=== PATIENT | female | born 1940 | race Caucasian/White ===

== ENCOUNTER → 2017-11-14 | Outpatient (CLI) | payer MEDICARE ==
[~2017-11-14] MED LIST: ACIDOPHILUS PO; ALBU8HFA2 INH; ALBU90OI61 INH; AMIT25 PO; AMOCLA875 PO; Acidophilus La100 GM PO; BUTASPCAF PO; CARI350 PO; CEFAZOLIN IV; CEFAZOLIN SODIU IV; CEFD300 PO; CEPH500 PO; CHOL10002 PO; CIPR500 PO; CODBUTACEC PO; CYAN100 PO; CYAN1000 PO; Ceftriaxon2 GM/50 ML IV; Ceftriaxone2 G1 IV; DIPATR PO; DOXE25 PO; DOXY100 PO; ENOX40I SC; FERR160 PO; FLUT.05NI; GABA300 PO; GENT.1TC TP; GENT15TO TOP; HYDACE10B PO; LANS30EC PO; LISHYD2012 PO; LONOX; LOPE2C PO; MAGOXI400 PO; MELA3 PO; METO100ER PO; METO50ER PO; Magnesium500 M1 PO; NIFE60ER PO; NITR100CA PO; OMEP20ER PO; ONDA4ODT MM; OXYC5 PO; POLY17UD PO; PROM25 PO; Rocephin 10001000 MG IV; SERT100 PO; SERT25 PO; SPIRIVA INH; TIOT18 IH; TRAZ150T57 PO; TRAZ50 PO; VERA180ER PO; VERA240ERB PO; VERAPAMIL PO; ZOLP5 PO; [UNRECOGNIZED DRUG - MIXTURE] PO; [UNRECOGNIZED DRUG - REMARK]
[2017-11-14 14:08] LABS: Creatinine, Blood 3.12 mg/dL (0.40-1.00); Potassium, Blood 4.3 mmol/L (3.5-5.5)
== END | disposition home or self-care (01) ==
LOC: LAB SHORT 10:00
PROVIDERS: Internal Medicine Nephrology
DX: N18.4 Chronic kidney disease, stage 4 (severe) (principal); D63.1 Anemia in chronic kidney disease; E83.41 Hypermagnesemia; E86.9 Volume depletion, unspecified
CPT/HCPCS: 82374; 82565; 84132; 84295; 85018

== ENCOUNTER → 2018-01-17 | Outpatient (CLI) | payer MEDICARE ==
[2018-01-17 16:14] LABS: Albumin, Blood 3.1 g/dL (3.4-5.0); Anion Gap 9 mmol/L (6-16); Blood Urea Nitrogen 55 mg/dL (8-24); Bun/Creatinine Ratio 19.3 (12.0-20.0); CO2, Blood 22 mmol/L (21-32); Calcium, Blood 8.6 mg/dL (8.5-10.1); Chloride, Blood 109 mmol/L (98-108); Creatinine, Blood 2.85 mg/dL (0.40-1.00); Glomerular Filtration Rate 17 (60-); Glucose, Blood 116 mg/dL (70-99); Phosphorus, Blood 3.3 mg/dL (2.5-4.9); Potassium, Blood 4.6 mmol/L (3.5-5.5); Sodium, Blood 140 mmol/L (136-145)
== END | disposition home or self-care (01) ==
LOC: LAB HH 15:32
PROVIDERS: Family Medicine
DX: N18.4 Chronic kidney disease, stage 4 (severe) (principal); D53.1 Other megaloblastic anemias, not elsewhere classified
CPT/HCPCS: 80069; 85018

== ENCOUNTER → 2018-02-20 | Outpatient (CLI) | payer MEDICARE ==
[2018-02-20 18:50] LABS: Albumin, Blood 3.4 g/dL (3.4-5.0); Anion Gap 6 mmol/L (6-16); Blood Urea Nitrogen 33 mg/dL (8-24); Bun/Creatinine Ratio 13.9 (12.0-20.0); CO2, Blood 24 mmol/L (21-32); Calcium, Blood 7.5 mg/dL (8.5-10.1); Chloride, Blood 113 mmol/L (98-108); Creatinine, Blood 2.38 mg/dL (0.40-1.00); Glomerular Filtration Rate 21 (60-); Glucose, Blood 164 mg/dL (70-99); Phosphorus, Blood 3.4 mg/dL (2.5-4.9); Potassium, Blood 3.8 mmol/L (3.5-5.5); Sodium, Blood 143 mmol/L (136-145)
[2018-02-20 19:21] LABS: Magnesium, Blood 1.1 mg/dL (1.6-2.4)
== END ==
LOC: LAB 11:30 → LAB SHORT 11:30
PROVIDERS: Internal Medicine Nephrology
DX: N18.4 Chronic kidney disease, stage 4 (severe) (principal); D63.1 Anemia in chronic kidney disease
CPT/HCPCS: 80069; 83735

== ENCOUNTER → 2018-06-19 | Outpatient (CLI) | payer MEDICARE ==
[2018-06-19 14:33] LABS: Albumin, Blood 2.5 g/dL (3.4-5.0); Anion Gap 7 mmol/L (6-16); Blood Urea Nitrogen 35 mg/dL (8-24); Bun/Creatinine Ratio 19.8 (12.0-20.0); CO2, Blood 21 mmol/L (21-32); Calcium, Blood 6.2 mg/dL (8.5-10.1); Chloride, Blood 118 mmol/L (98-108); Creatinine, Blood 1.77 mg/dL (0.40-1.00); Glomerular Filtration Rate 30 (60-); Glucose, Blood 55 mg/dL (70-99); Magnesium, Blood 1.2 mg/dL (1.6-2.4); Phosphorus, Blood 2.5 mg/dL (2.5-4.9); Potassium, Blood 3.6 mmol/L (3.5-5.5); Sodium, Blood 146 mmol/L (136-145)
== END | disposition home or self-care (01) ==
LOC: LAB 10:45 → LAB SHORT 10:45
PROVIDERS: Internal Medicine Nephrology
DX: N18.4 Chronic kidney disease, stage 4 (severe) (principal); D63.1 Anemia in chronic kidney disease; E83.41 Hypermagnesemia; R73.09 Other abnormal glucose
CPT/HCPCS: 80069; 83036; 83735; 85018

== ENCOUNTER → 2018-07-31 | Outpatient (CLI) | payer MEDICARE ==
[2018-07-31 18:51] LABS: Magnesium, Blood 1.9 mg/dL (1.6-2.4)
[2018-07-31 18:54] LABS: Creatinine, Blood 2.8 mg/dL (0.40-1.00); Potassium, Blood 4.2 mmol/L (3.5-5.5)
== END | disposition home or self-care (01) ==
LOC: LAB HH 13:49
PROVIDERS: Internal Medicine Nephrology
DX: N18.3 Chronic kidney disease, stage 3 (moderate) (principal); N25.81 Secondary hyperparathyroidism of renal origin; E55.9 Vitamin D deficiency, unspecified; E78.00 Pure hypercholesterolemia, unspecified
CPT/HCPCS: 82374; 82565; 83735; 84132; 84295

== ENCOUNTER 2018-11-13 10:27 | Inpatient (IN) | payer MEDICARE, OTHER ==
[~2018-11-13] VITALS: Ht 172.7 cm; Wt 56.3 kg
[2018-11-13] MEDS ORDERED: CYAN500 PO (10:58)
[2018-11-13] MEDS ORDERED: ALBU90OI61 INH (10:59)
[2018-11-13] MEDS ORDERED: ONDA4 PO (11:00)
[2018-11-13 11:42] LABS: BASOPHILS ABSOLUTE AUTO 0.05 K/mm3 (0.00-0.23); BASOPHILS PERCENT AUTO 0 % (0-2); EOSINOPHILS ABSOLUTE AUTO 0.01 K/mm3 (0.00-0.68); EOSINOPHILS PERCENT AUTO 0 % (0-6); Hematocrit 38.9 % (33.0-51.0); Hemoglobin 12.8 g/dL (11.5-16.0); IMMATURE GRAN ABSOLUTE AUTO 0.22 K/mm3 (0.00-0.10); IMMATURE GRAN PERCENT AUTO 1 % (0-1); LYMPHOCYTES PERCENT AUTO 5 % (21-46); MONOCYTES ABSOLUTE AUTO 0.41 K/mm3 (0.16-1.47); MONOCYTES PERCENT AUTO 2 % (4-13); Mean Corpuscular HGB Conc 32.9 g/dL (31.5-36.5); Mean Corpuscular Volume 88 fL (80-100); Mean Platelet Volume 10.1 fL (9.1-12.4); NEUTROPHILS ABSOLUTE AUTO 19.88 K/mm3 (1.96-9.15); NEUTROPHILS PERCENT AUTO 92 % (41-73); Platelet Count 351 K/mm3 (150-400); RDW Standard Deviation 44.9 fL (35.1-46.3); Red Blood Cell Count 4.42 M/mm3 (3.80-5.20); White Blood Cell Count 21.67 K/mm3 (4.00-11.30)
[2018-11-13 12:11] LABS: Albumin, Blood 4.1 g/dL (3.4-5.0); Albumin/Globulin Ratio 0.9 (0.8-1.8); Bilirubin, Total 0.6 mg/dL (0.1-1.0); Calcium, Blood 8.9 mg/dL (8.5-10.1); Creatinine, Blood 4.83 mg/dL (0.40-1.00); Globulin, Blood 4.8 g/dL (2.2-4.0); Total Protein, Blood 8.9 g/dL (6.4-8.2)
[2018-11-13 12:14] LABS: Potassium, Blood 6.9 mmol/L (3.5-5.5)
--- NOTE | 2018-11-13 18:35 | NUR ---
SHIFT SUMMARY PT ARRIVED A BIT BEFORE 4PM. DENIED PAIN, PLEASANT, SBA TO BED. AT 1815, CAME IN TO SEE PT WITH HER HAVING STRONG WHOLE BODY CHILLS, BUT ABLE TO TALK THROUGH THEM. SHE SAID SHE WAS JUST REALLY COLD AND HAD A HEADACHE. SHE HAD BEEN IN THE MIDDLE OF EATING. O2 SATS SHOWED 79 INITIALLY, BUT BUMPED UP QUICKLY AFTER OXYGEN PLACED AT 5L. , BUT TEMP BETWEEN 99-101 DEPENDING ON MACHINE USED. OXYGEN LEVEL RECOVERED AND WEANED OFF OXYGEN WITHIN A FEW MINUTES, AND CHILLS MUCH BETTER. TALKING TO PT, SHE HAS HAD CHRONIC SWALLOWING ISSUES, WILL FOLLOW ASP PRECAUTIONS AND ASK FOR SWALLOW EVAL. TM
[2018-11-13 19:21] LABS: Bun/Creatinine Ratio 17.4 (12.0-20.0); Creatinine, Blood 4.08 mg/dL (0.40-1.00)
[2018-11-13 20:13] LABS: Source, Urine Catheter
[2018-11-13 20:18] LABS: Appearance, Urine Turbid (Clear); Bilirubin, Urine Neg (Neg); Blood, Urine 3+ (Neg); Color, Urine Yellow (P-Yellow); Glucose Qualitative, Urine Neg (Neg); Ketones, Urine Neg (Neg); Leukocyte Esterase, Urine 3+ (Neg); Nitrite, Urine Neg (Neg); Protein, Urine 2+ (Neg); Urobilinogen, Urine NORM (Normal)
[2018-11-13 20:27] LABS: White Blood Cells, Urine TNTC /hpf (0-5)
[2018-11-13 20:29] LABS: Bacteria Many /hpf; Squamous Epithelial Cells Rare /hpf (Few)
--- NOTE | 2018-11-14 04:28 | NUR ---
SHIFT SUMMARY PT REPORTS FEELING MUCH BETTER THIS EVENING. HAD AN EPISODE JUST BEFORE SHIFT CHANGE WHERE PT WAS CHILLED AND HAD A HEADACHE. PT HAD BEEN RUNNING A TEMPERATURE APPROX 101 DEGREES F. AS[place]LY [place] MASON UP TO SEE PT. ADDITIONAL LABS ORDERED INCLUDING BLOOD CULTURES OBTAINED BOTH FROM [facility] AND NOT. ULTRAM X 1 GIVEN FOR THE HEADACHE WHICH WAS VERY EFFECTIVE. TYLENOL ALSO GIVEN FOR FEVER. APPROX 1 HOUR AFTER TYLENOL WAS GIVEN PT'S TEMP CAME DOWN TO 98.9 DEGREES. PT'S POTASSIUM IMPROVED TO 5.0 FROM CRITICALLY HIGH IN THE ED. HOWEVER, MAGNESIUM CRITICALLY LOW WITH EVENING DRAW AT 1.0. 2 GRAMS IV MAGNESIUM GIVEN. LACTIC ACID ALSO ELEVATED AT 2.4 AND 2.5. ASHELY [place] AWARE. PT HAS COLOSTOMY AND UROSTOMY. APPLIANCES CHANGED TO BOTH THIS EVENING. PT SELF MANGAGES. CHANGED APPLIANCES TO OBTAIN CULTURE SWABS TO CLEAR FOR VRE. SWABS ALSO TAKEN FROM SMALL WOUND ON COCCYX AND URETHRA. UNABLE TO OBTAIN RECTAL SWAB. PT REPORTS THAT RECTUM IS "SEWN UP". PT STEADY ON FEET. AMBULATES WELL. DENIES NAUSEA THIS EVENING. APPEARS TO BE SLEEPING AT THIS TIME, HOWEVER DID NOT SLEEP VERY MUCH THIS EVENING. VSS. WILL CONTINUE TO MONITOR.
[2018-11-14 05:02] LABS: Hematocrit 26.6 % (33.0-51.0); Hemoglobin 8.7 g/dL (11.5-16.0); Mean Corpuscular HGB 29.5 pg (26.0-34.0); Mean Corpuscular HGB Conc 32.7 g/dL (31.5-36.5); Mean Corpuscular Volume 90 fL (80-100); Platelet Count 183 K/mm3 (150-400); RDW Coefficient Variation 14.1 % (11.7-14.2); RDW Standard Deviation 45.4 fL (35.1-46.3); Red Blood Cell Count 2.95 M/mm3 (3.80-5.20); White Blood Cell Count 13.99 K/mm3 (4.00-11.30)
[2018-11-14 06:14] LABS: Albumin, Blood 2.7 g/dL (3.4-5.0); Albumin/Globulin Ratio 0.8 (0.8-1.8); Bilirubin, Total 0.6 mg/dL (0.1-1.0); Bun/Creatinine Ratio 17.6 (12.0-20.0); Calcium, Blood 7.6 mg/dL (8.5-10.1); Creatinine, Blood 3.76 mg/dL (0.40-1.00); Globulin, Blood 3.4 g/dL (2.2-4.0); Potassium, Blood 5.3 mmol/L (3.5-5.5)
[2018-11-14 06:32] LABS: Total Protein, Blood 6.1 g/dL (6.4-8.2)
--- NOTE | 2018-11-14 07:37 | NUR ---
REPORT FROM ADONAY CARNEY RN, LAB CALLED TO REPORT A POSITIVE BLOOD CULTURE. RN NOTIFIED DR. MADISON.
--- NOTE | 2018-11-14 11:42 | NUR ---
RECIEVED A CALL FROM CHRISTOPHE IN LAB, SECOND SET OF BLOOD CULTURES POSITIVE. ISTRATE NOTIFIED.
--- NOTE | 2018-11-14 18:44 | NUR ---
SHIFT SUMMARY PATIENT A&O X4, INDEPENDENT IN THE ROOM. DENIES ANY PAIN, SOB, OR NAUSEA. TWO POSITIVE BLOOD CULTURES THIS SHIFT. IV ABX PER E JAN. CPN @ 75 STARTED THIS EVENING. CAP TO PORT CHANGED. NO ACUTE CHANGES, CALL LIGHT WITHIN REACH.
[2018-11-15 05:20] LABS: BASOPHILS ABSOLUTE AUTO 0.04 K/mm3 (0.00-0.23); BASOPHILS PERCENT AUTO 0 % (0-2); EOSINOPHILS ABSOLUTE AUTO 0.05 K/mm3 (0.00-0.68); EOSINOPHILS PERCENT AUTO 1 % (0-6); Hemoglobin 9.1 g/dL (11.5-16.0); IMMATURE GRAN ABSOLUTE AUTO 0.06 K/mm3 (0.00-0.10); IMMATURE GRAN PERCENT AUTO 1 % (0-1); LYMPHOCYTES ABSOLUTE AUTO 0.81 K/mm3 (0.84-5.20); LYMPHOCYTES PERCENT AUTO 9 % (21-46); MONOCYTES ABSOLUTE AUTO 0.37 K/mm3 (0.16-1.47); MONOCYTES PERCENT AUTO 4 % (4-13); Mean Corpuscular HGB 28.8 pg (26.0-34.0); Mean Corpuscular HGB Conc 32.5 g/dL (31.5-36.5); Mean Corpuscular Volume 89 fL (80-100); Mean Platelet Volume 10.2 fL (9.1-12.4); NEUTROPHILS ABSOLUTE AUTO 7.84 K/mm3 (1.96-9.15); NEUTROPHILS PERCENT AUTO 86 % (41-73); Platelet Count 205 K/mm3 (150-400); RDW Coefficient Variation 13.8 % (11.7-14.2); RDW Standard Deviation 44.5 fL (35.1-46.3); Red Blood Cell Count 3.16 M/mm3 (3.80-5.20); White Blood Cell Count 9.17 K/mm3 (4.00-11.30)
[2018-11-15 05:43] LABS: Alanine Aminotransfer (ALT/SGP 27 U/L (12-78); Albumin, Blood 2.9 g/dL (3.4-5.0); Albumin/Globulin Ratio 0.8 (0.8-1.8); Alk Phos 117 U/L (50-136); Anion Gap 8 mmol/L (6-16); Aspartate Aminotrans (AST/SGOT 14 U/L (12-37); Bilirubin, Total 0.3 mg/dL (0.1-1.0); Blood Urea Nitrogen 60 mg/dL (8-24); Bun/Creatinine Ratio 21.9 (12.0-20.0); CO2, Blood 23 mmol/L (21-32); Calcium, Blood 8.3 mg/dL (8.5-10.1); Chloride, Blood 106 mmol/L (98-108); Creatinine, Blood 2.74 mg/dL (0.40-1.00); Globulin, Blood 3.5 g/dL (2.2-4.0); Glomerular Filtration Rate 18 (60-); Glucose, Blood 97 mg/dL (70-99); Magnesium, Blood 2.2 mg/dL (1.6-2.4); Phosphorus, Blood 4.3 mg/dL (2.5-4.9); Potassium, Blood 5.4 mmol/L (3.5-5.5); Sodium, Blood 137 mmol/L (136-145); Total Protein, Blood 6.4 g/dL (6.4-8.2); Triglycerides 100 mg/dL (30-160)
--- NOTE | 2018-11-15 06:20 | NUR ---
SHIFT SUMMARY PT HAS SLEPT FOR MOST OF SHIFT. PT HAD NO ISSUES NOTED. PT IS BREATHING EASY AND RESTING COMFORTABLY.
[2018-11-15 13:21] LABS: BASOPHILS ABSOLUTE AUTO 0.01 K/mm3 (0.00-0.23); BASOPHILS PERCENT AUTO 0 % (0-2); EOSINOPHILS ABSOLUTE AUTO 0.02 K/mm3 (0.00-0.68); EOSINOPHILS PERCENT AUTO 1 % (0-6); Hematocrit 30.1 % (33.0-51.0); Hemoglobin 9.9 g/dL (11.5-16.0); IMMATURE GRAN ABSOLUTE AUTO 0.03 K/mm3 (0.00-0.10); IMMATURE GRAN PERCENT AUTO 1 % (0-1); LYMPHOCYTES ABSOLUTE AUTO 0.21 K/mm3 (0.84-5.20); LYMPHOCYTES PERCENT AUTO 5 % (21-46); MONOCYTES ABSOLUTE AUTO 0.05 K/mm3 (0.16-1.47); MONOCYTES PERCENT AUTO 1 % (4-13); Mean Corpuscular HGB Conc 32.9 g/dL (31.5-36.5); Mean Corpuscular Volume 88 fL (80-100); Mean Platelet Volume 10.3 fL (9.1-12.4); NEUTROPHILS ABSOLUTE AUTO 3.89 K/mm3 (1.96-9.15); NEUTROPHILS PERCENT AUTO 92 % (41-73); Platelet Count 197 K/mm3 (150-400); RDW Coefficient Variation 14.1 % (11.7-14.2); RDW Standard Deviation 44.8 fL (35.1-46.3); Red Blood Cell Count 3.41 M/mm3 (3.80-5.20); White Blood Cell Count 4.21 K/mm3 (4.00-11.30)
--- NOTE | 2018-11-15 18:03 | NUR ---
PT AOX4 AND PLEASANT WITH ALL CARE. PT HAS BEEN ON BED REST AND TAKES CARE OF HER OSTOMY BAG PERSONALLY. PT HAD HER TEMP SPIKE UP TO 101.3 LATE MORNING AND WAS TREATED WITH TYLENOL AND ZOFRAN FOR NAUSEA. PT HAD THE CHILLS AND WAS VERY DISTRESSED, BUT THIS RESOLVED HER TEMP CAME DOWN A BIT. PT WAS AGAIN STARTING TO GET NAUSEA AND WAS AGAIN TREATED FOR TEMP OF 100.3 PRIOR TO END OF SHIFT. PT IS TRYING TO EAT DINNER. TPN CHANGED WELL TUBING. WILL MONITOR.
--- NOTE | 2018-11-15 22:22 | NUR ---
VEW SCORE 7 HOSPITALIST CALLED AND INFORMED OF PT'S VEW SCORE. PROVIDER ORDERED INCREASE OF NS RATE TO 125 ML/HR AND TYLENOL 650MG OT FOR NOW. PT VS WILL BE ASSESSED HOURLY. PT HAS RECIEVED ORDERED VANCO AND IS NOW RECIEVING ROCEPHIN.
--- NOTE | 2018-11-16 02:10 | NUR ---
DR. WATSON PT HYPOTENSIVE (SEE VS FS). KYLE, PRIMARY RN REQUESTED TO CONTACT DR. WATSON REGARDING HYPOTENSION. DR. WATSON ORDERED 1L LR BOLUS. DR. WATSON LATER D/C LR BOLUS PRIOR TO ADMINISTRATION AND ORDERED 1L NS BOLUS.
--- NOTE | 2018-11-16 02:13 | NUR ---
PT TRANSFERED TO ICU 8. PT DAUGHTER CHRISTOPHE WAS CALLED AND NOTIFIED, SHE STATED SHE WILL BE IN LATER IN THE MORNING.
[2018-11-16 03:27] LABS: BASOPHILS ABSOLUTE AUTO 0.03 K/mm3 (0.00-0.23); BASOPHILS PERCENT AUTO 0 % (0-2); EOSINOPHILS PERCENT AUTO 0 % (0-6); Hematocrit 22.3 % (33.0-51.0); Hemoglobin 7.4 g/dL (11.5-16.0); IMMATURE GRAN ABSOLUTE AUTO 0.52 K/mm3 (0.00-0.10); IMMATURE GRAN PERCENT AUTO 2 % (0-1); LYMPHOCYTES ABSOLUTE AUTO 0.37 K/mm3 (0.84-5.20); LYMPHOCYTES PERCENT AUTO 2 % (21-46); MONOCYTES ABSOLUTE AUTO 0.71 K/mm3 (0.16-1.47); MONOCYTES PERCENT AUTO 3 % (4-13); Mean Corpuscular HGB 30.1 pg (26.0-34.0); Mean Corpuscular HGB Conc 33.2 g/dL (31.5-36.5); Mean Platelet Volume 10.7 fL (9.1-12.4); NEUTROPHILS PERCENT AUTO 93 % (41-73); Platelet Count 106 K/mm3 (150-400); RDW Standard Deviation 45.4 fL (35.1-46.3); Red Blood Cell Count 2.46 M/mm3 (3.80-5.20); White Blood Cell Count 24.43 K/mm3 (4.00-11.30)
[2018-11-16 03:29] LABS: Mean Corpuscular Volume 91 fL (80-100)
[2018-11-16 03:46] LABS: Albumin, Blood 2.1 g/dL (3.4-5.0); Anion Gap 9 mmol/L (6-16); Blood Urea Nitrogen 60 mg/dL (8-24); Bun/Creatinine Ratio 20.7 (12.0-20.0); CO2, Blood 19 mmol/L (21-32); Calcium, Blood 6.8 mg/dL (8.5-10.1); Chloride, Blood 109 mmol/L (98-108); Glomerular Filtration Rate 17 (60-); Glucose, Blood 106 mg/dL (70-99); Magnesium, Blood 1.3 mg/dL (1.6-2.4); Phosphorus, Blood 2.6 mg/dL (2.5-4.9); Potassium, Blood 5.6 mmol/L (3.5-5.5); Sodium, Blood 137 mmol/L (136-145)
--- NOTE | 2018-11-16 04:34 | NUR ---
ASSUMING CARE RECEIVED PT REPORT FROM LEONARDO ALMEIDA ON MEDICAL FLOOR. PT IS BEING TRANSFERED TO ICU DUE TO HYPOTENSION. PT ARRIVED TO THE ICU AT APPROX 0158. PT ESCORTED BY 2 RN'S AND MITER GRINDER OPERATOR FROM MEDICAL FLOOR. AT THE TIME OF ARRIVAL TO THE ICU PT IS ALERT AND ORIENTED. PT IS ABLE TO ANSWER QUESTIONS APPROPRIATELY. PT BP IS IN THE 60-70'S SYSTOLIC. PT RECEIVED X2 500ML BOLUSES ON MEDICAL FLOOR PRIOR TO TRANSFER TO THE UNIT. ORDER RECEIVED FROM DR WATSON TO TRANSFUSE X1 1000ML BOLUS NS. BOLUS TRANSFUSED ORDERED. PT BP DID NOT APPEAR TO RESPOND TO BOLUS IT REMAINED IN THE 70'S SYSTOLIC. DR WATSON CALLED, ORDER RECEIVED FOR LEVOPHED. LEVOPHED GTT INITIATED ORDERED THROUGH MEDIPORT TO THE LEFT UPPER CHEST AT A RATE OF 5MCG/MIN. PT BP RESPONDED TO LEVOPHED AND IS IN THE 90-100 SYSTOLIC RANGE AT THIS TIME. PT HAS A UROSTOMY AND ILIOSTOMY PRESENT ON THE ABDOMEN. STOMAS APPEAR TO BE PINK AND SKIN AROUND SITES REMAINS INTACT. PT DENIES ANY PAIN AT THIS TIME. 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 PT IS ON ROOM AIR AT THIS TIME WITH SPO2 IN THE HIGH 90'S. PT IS ON CONTACT PRECAUTIONS AT THIS TIME FOR VRE PER REPORT. ASSUMED CARE OF PT AT THE TIME OF ARRIVAL TO THE UNIT. WILL CONTINUE TO MONITOR PT.
--- NOTE | 2018-11-16 06:21 | NUR ---
SHIFT SUMMARY NOTE PT HAS REMAINED ALERT AND ORIENTED THROUGH THE NIGHT WHILE AWAKE. PT HAS DENIED ANY DIZZINESS OR LIGHTHEADEDNESS THROUGHOUT THE NIGHT. PT REMAINS ON NS AT 125 AND LEVOPHED AT 5MCG/MIN. AFTER INITIATION OF LEVOPHED PT BP HAS INCREASED TO THE 90-100 RANGE AND REMAINED STABLE. PT HAD APPROX 200 ML OF OUTPUT FROM ILIOSTOMY, OUTPUT IS LIQUIDY AND GREEN. PT HAD APPROX 150ML OF URINE OUTPUT FROM UROSTOMY, URINE IS CLEAR AND YELLOW AT THIS TIME. PT HGB WAS DECREASED TO APPROX 7.[address] WATSON WAS CALLED AND INFORMED OF PTS HGB LEVEL. ORDER RECEIVED TO REDRAW PT'S H/H AT 1100. ORDER ENTERED RECEIVED. WILL REPORT OFF TO ONCOMING DAY SHIFT NURSE.
--- NOTE | 2018-11-16 07:00 | NUR ---
REC'D BESIDE REPORT FROM LEONARDO WRIGHT AND AM NOW REC'ING CARE OF THIS PT.
--- NOTE | 2018-11-16 07:30 | NUR ---
AM ASSESSMENT: PT IS ALERT AND ORIENTED X3. PT ABLE TO FOLLOW COMMANDS AND ANSWERS QUESTIONS APPROPRIATELY. PT IS MOSTLY INDEPENDENT IN ROOM WITH MINIMAL ASSIST WITH ADL'S. PT HAD A SUDDEN/SHARP/STABBING PAIN THAT PT REPORTS STARTED IN HER EPIGASTRIC REGION, THEN MOVED DOWN TO MID ABD, AND THEN LOW BACK. PAIN ONLY LASTED A SHORT PERIOD AND RESOLVED WITHOUT ANY INTERVENTION. LUNGS ARE CLEAR T/O, BUT ABSENT SOUNDS IN RLL (R/T TO LOBECTOMY FROM CA REMOVAL) SATS >90% ON RA. HR REGULAR, SR-60-70'S RANGE. MEDIPORT TO LT CHEST WALL WITH IVF'S AND LEVOPHED @ 5MCG/MIN. ABD SOFT/FLAT/NON-TENDER WITH HYPOACTIVE BT'S X4 QAUDS. PT HAS UROSTOMY FROM BLADDER REMOVAL R/T CA IN LLQ DRAINING YELLOW URINE WITH SOME SEDIMENT AND ILEOSTOMY FROM BOWEL RESECTION R/T CA IN RLQ WITH DARK GREEN LIQUID OUTPUT. R/T CA.
--- NOTE | 2018-11-16 08:08 | NUR ---
REPORTED OFF TO LEONARDO COWAN WHOM IS NOW ASSUMING CARE OF THIS PT.
[2018-11-16 11:21] LABS: Hematocrit 24.2 % (33.0-51.0); Hemoglobin 7.9 g/dL (11.5-16.0)
--- NOTE | 2018-11-16 11:26 | NUR ---
0800-ASSUMED CARE OF PT. PT IS ALERT AND ORIENTED. DENIES CHEST PAIN AT THIS TIME. PT IS ON LEVOPHED DRIP @ 5MCG/KG/MIN. 0815-SEEN BY DR. MADISON. UPDATED HIM OF PT'S STATUS. ORDERS RECEIVED. CURRENT LEVOPHED DRIP RATE IS AT 4MCG/KG/MIN. 1100-PT'S DAUGHTER AT BEDSIDE. UPDATED HER OF PT'S STATUS. LEVOPHED DRIP @ 3MCG/KG/MIN.
[2018-11-16 15:47] LABS: Vancomycin, Trough 9.1 ug/mL (5.0-10.0)
[2018-11-16 15:58] LABS: Bun/Creatinine Ratio 19.6 (12.0-20.0); Calcium, Blood 7.4 mg/dL (8.5-10.1); Creatinine, Blood 2.4 mg/dL (0.40-1.00); Potassium, Blood 4.3 mmol/L (3.5-5.5)
[2018-11-16 16:58] LABS: Anion Gap 9 mmol/L (6-16); Blood Urea Nitrogen 47 mg/dL (8-24); Bun/Creatinine Ratio 19.7 (12.0-20.0); CO2, Blood 21 mmol/L (21-32); Calcium, Blood 7.3 mg/dL (8.5-10.1); Chloride, Blood 108 mmol/L (98-108); Creatinine, Blood 2.39 mg/dL (0.40-1.00); Glomerular Filtration Rate 21 (60-); Glucose, Blood 72 mg/dL (70-99); Phosphorus, Blood 3.1 mg/dL (2.5-4.9); Potassium, Blood 4.3 mmol/L (3.5-5.5); Sodium, Blood 138 mmol/L (136-145)
[2018-11-16 17:46] LABS: BASOPHILS ABSOLUTE AUTO 0.01 K/mm3 (0.00-0.23); BASOPHILS PERCENT AUTO 0 % (0-2); EOSINOPHILS ABSOLUTE AUTO 0.05 K/mm3 (0.00-0.68); EOSINOPHILS PERCENT AUTO 0 % (0-6); Hematocrit 22.8 % (33.0-51.0); Hemoglobin 7.2 g/dL (11.5-16.0); IMMATURE GRAN ABSOLUTE AUTO 0.07 K/mm3 (0.00-0.10); IMMATURE GRAN PERCENT AUTO 1 % (0-1); LYMPHOCYTES ABSOLUTE AUTO 0.74 K/mm3 (0.84-5.20); LYMPHOCYTES PERCENT AUTO 6 % (21-46); MONOCYTES ABSOLUTE AUTO 0.46 K/mm3 (0.16-1.47); MONOCYTES PERCENT AUTO 4 % (4-13); Mean Corpuscular HGB 29.6 pg (26.0-34.0); Mean Corpuscular HGB Conc 31.6 g/dL (31.5-36.5); Mean Platelet Volume 11.4 fL (9.1-12.4); NEUTROPHILS ABSOLUTE AUTO 10.94 K/mm3 (1.96-9.15); NEUTROPHILS PERCENT AUTO 89 % (41-73); Platelet Count 70 K/mm3 (150-400); RDW Coefficient Variation 14.4 % (11.7-14.2); RDW Standard Deviation 48.3 fL (35.1-46.3); Red Blood Cell Count 2.43 M/mm3 (3.80-5.20); White Blood Cell Count 12.27 K/mm3 (4.00-11.30)
[2018-11-16 17:49] LABS: Mean Corpuscular Volume 94 fL (80-100)
--- NOTE | 2018-11-16 18:03 | NUR ---
PT INITIALLY REPORTED SEVERE HEADACHE PAIN AND HAD LITTLE RELIEF FROM TYLENOL PO. CALLED DR MURCIA AND PT MEDICATED WITH IMITREX SQ AND PHENERGAN IV. PT REPORTS HEADACHE PAIN IS MUCH BETTER, "BUT NOT COMPLETELY GONE." WHEN CHECKING ON PT AFTER DINNER, PT IS NOW SLEEPING AND APPEARS COMFORTABLE.
--- NOTE | 2018-11-16 19:15 | NUR ---
SHIFT SUMMARY/REPORTED OFF: PT WILL IMPROVEMENT FROM PRIOR STATED HEADACHE. PT SLEEPS WHEN UNDISTURBED BUT AWAKES EASILY TO VERBAL STIMULI. REMAINS A+O X3. PLEASANT AND COOPERATIVE WITH CARE. LUNGS ARE CLEAR BUT REMAIN DIMINISHED IN LT BASE. ABSENT LUNG SOUNDS IN RT BASE R/T RLL LOBECTOMY R/T CA. SATS >90% ON RA. HR REGULAR, SR WITH CONTROLLED RATE. BP REMAINS STABLE OFF THE LEVOPHED AND BICARB GTT @125MR/HR AND NS @ 75ML/HR. MEDIPORT ACCESSED IN LT CHEST AND POWERGLIDE PLACE TO LT UA BY THIS RN. ABD FLAT/SOFT/NON-TENDER WITH UROSTOMY PRESENT TO LLQ WITH ADEQUATE AMTS OF YELLOW URINE WITH SEDIMENT AND ILEOSTOMY TO RLL WITH WATERY/DARK GREEN OUTPUT IN LARGE AMTS. PT WILL CALL WHEN SHE NEEDS THEM EMPTIED. 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
--- NOTE | 2018-11-16 22:32 | NUR ---
ASSUMING CARE RECEIVED PT REPORT FROM LEONARDO FALLON. PT IS ALERT AND ORIENTED AT THIS TIME. PT WILL SLEEP WHEN UNDISTURBED BUT IS EASILY AROUSABLE. AT THE TIME OF SHIFT REPORT PT IS RECEIVNG NS AT 75 AND SODIUM BICARB AT 125ML/HR. PT HAS A POWERGLIDE IV TO THE LEFT UPPER ARM AND A MIDIPORT TO THE LEFT UPPER CHEST. PT IS NO LONGER ON LEVOPHED AT THIS TIME. PT HAS AN ILEOSTOMY AND UROSTOMY PRESENT TO THE RLQ AND LLQ OF ABDOMEN RESPECTIVELY. PT IS ABLE TO CALL FOR ASSISTANCE WHEN BAGS NEED TO BE EMPTIED. UROSTOMY IS CONNECTED TO DRAINAGE BAG. PT HR IS IN THE 60'S. PT BP APPEARS TO BE STABLE AT THIS TIME. AT APPROX 2021 DR IBARRA WAS CALLED AND INFORMED PT PTS DECREASED HGB AT 7.2. ORDER RECEIVED TO DC NS AT 75. INSTRUCTIONS RECEIVE TO CONTINUE TO MONITOR PT AND H/H WITH MORNING LABS. ORDERS ENTERED RECEIVED. ASSUMED CARE OF PT AT THE TIME OF SHIFT REPORT. WILL CONTINUE TO MONITOR PT.
[2018-11-17 03:48] LABS: BASOPHILS ABSOLUTE AUTO 0.03 K/mm3 (0.00-0.23); BASOPHILS PERCENT AUTO 0 % (0-2); EOSINOPHILS PERCENT AUTO 1 % (0-6); Hematocrit 23.4 % (33.0-51.0); Hemoglobin 7.6 g/dL (11.5-16.0); IMMATURE GRAN ABSOLUTE AUTO 0.06 K/mm3 (0.00-0.10); IMMATURE GRAN PERCENT AUTO 1 % (0-1); LYMPHOCYTES ABSOLUTE AUTO 0.78 K/mm3 (0.84-5.20); LYMPHOCYTES PERCENT AUTO 7 % (21-46); MONOCYTES ABSOLUTE AUTO 0.39 K/mm3 (0.16-1.47); MONOCYTES PERCENT AUTO 4 % (4-13); Mean Corpuscular HGB 28.7 pg (26.0-34.0); Mean Corpuscular HGB Conc 32.5 g/dL (31.5-36.5); Mean Platelet Volume 11.5 fL (9.1-12.4); NEUTROPHILS PERCENT AUTO 88 % (41-73); Platelet Count 106 K/mm3 (150-400); RDW Coefficient Variation 14.4 % (11.7-14.2); RDW Standard Deviation 45.8 fL (35.1-46.3); Red Blood Cell Count 2.65 M/mm3 (3.80-5.20); White Blood Cell Count 11.26 K/mm3 (4.00-11.30)
[2018-11-17 03:49] LABS: Mean Corpuscular Volume 88 fL (80-100)
[2018-11-17 04:04] LABS: Albumin, Blood 2.1 g/dL (3.4-5.0); Anion Gap 7 mmol/L (6-16); Blood Urea Nitrogen 43 mg/dL (8-24); Bun/Creatinine Ratio 17.5 (12.0-20.0); CO2, Blood 26 mmol/L (21-32); Calcium, Blood 7.4 mg/dL (8.5-10.1); Chloride, Blood 109 mmol/L (98-108); Creatinine, Blood 2.46 mg/dL (0.40-1.00); Glomerular Filtration Rate 20 (60-); Glucose, Blood 79 mg/dL (70-99); Magnesium, Blood 2.1 mg/dL (1.6-2.4); Potassium, Blood 4.4 mmol/L (3.5-5.5); Sodium, Blood 142 mmol/L (136-145)
--- NOTE | 2018-11-17 06:45 | NUR ---
SHIFT SUMMARY NOTE PT HAS REMAINED ALERT AND ORIENTED THROUGH THE NIGHT WHILE AWAKE. PT HAS SLEPT THROUGH MOST OF THE NIGHT. PT HAS BEEN ABLE TO USE CALL LIGHT APPROPRIATELY AND MAKE NEEDS KNOWN. PT HAS NOT BEEN ON LEVOPHED AT ALL THROUGH THE NIGHT. PT BP HAS REMAINED STABLE THROUGH THE NIGHT WITH A MAP APPROX 65. PT HAS RECEIVED SODIUM BICARB THROUGH MOST OF THE NIGHT AT A RATE OF 125ML/HR. AT APPROX [address] IBARRA CAME IN TO ASSESS PT AND CHANGED FLUIDS TO NS AT 100ML/HR. PT HAS REMAINED ON ROOM AIR THROUGH THE NIGHT WITH SPO2 IN THE HIGH 90'S. PT HAD GOOD OUTPUT FROM UROSTOMY AND ILEOSTOMY THROUGHOUT THE NIGHT. WILL REPORT OFF TO ONCOMING DAY SHIFT NURSE.
--- NOTE | 2018-11-17 07:47 | NUR ---
ASSUMED CARE: PT RESTING QUIETLY IN BED. OFF LEVOPHED DRIP. NS RUNNING PER NEW ORDERS BY DR IBARRA. NO ACUTE CHANGES OR NEEDS AT THIS TIME.
--- NOTE | 2018-11-17 11:18 | NUR ---
DISCUSSED PT'S DECREASED BP AND INCREASED HR WITH DR ISTRATE. ORDERS FOR INCREASE IN FLUIDS AND TO CALL DR THIS AFTERNOON TO GIVE UPDATE ON STATUS
--- NOTE | 2018-11-17 13:08 | NUR ---
DISCUSSED WITH ISTRATE PT'S STATUS. STATES TO FINISH LITER AT CURRENT RATE THEN CHANGES MAINTENANCE FLUIDS FOR 150/HR AND MONITOR AND GIVE UPDATE. PACS SPECIALIST AWARE
[2018-11-17 15:59] LABS: Vancomycin, Trough 13.3 ug/mL (5.0-10.0)
--- NOTE | 2018-11-17 17:39 | NUR ---
SHIFT SUMMARY: PT'S HR AND BP HAVE IMPROVED WITH INCREASED RATE IN FLUIDS. PT IS PUTTING OUT LARGE AMOUNTS OF FLUID THROUGH UROSTOMY AND ILEOSTOMY. FAMILY AT BEDSIDE FOR GOOD PORTION OF SHIFT. PT IS MED/TELE STATUS. NO FURTHER NEEDS OR CONCERNS THIS SHIFT
--- NOTE | 2018-11-17 18:41 | NUR ---
REPORT CALLED TO LEONARDO KHAN. PT CURRENTLY GETTING SELF CLEANED UP DO TO ILEOSTOMY OPENED UP AND GOT HER CLOTHES DIRTY. PT CLEANING DEVICES. DECLINED ASSISTANCE. NO FURTHER NEEDS OR CONCERNS AT THIS TIME
[2018-11-18 05:14] LABS: BASOPHILS ABSOLUTE AUTO 0.04 K/mm3 (0.00-0.23); BASOPHILS PERCENT AUTO 0 % (0-2); EOSINOPHILS ABSOLUTE AUTO 0.18 K/mm3 (0.00-0.68); EOSINOPHILS PERCENT AUTO 2 % (0-6); Hematocrit 23.6 % (33.0-51.0); Hemoglobin 7.6 g/dL (11.5-16.0); IMMATURE GRAN ABSOLUTE AUTO 0.11 K/mm3 (0.00-0.10); IMMATURE GRAN PERCENT AUTO 1 % (0-1); LYMPHOCYTES ABSOLUTE AUTO 1.18 K/mm3 (0.84-5.20); LYMPHOCYTES PERCENT AUTO 12 % (21-46); MONOCYTES ABSOLUTE AUTO 0.52 K/mm3 (0.16-1.47); MONOCYTES PERCENT AUTO 5 % (4-13); Mean Corpuscular HGB 29.7 pg (26.0-34.0); Mean Corpuscular HGB Conc 32.2 g/dL (31.5-36.5); Mean Corpuscular Volume 92 fL (80-100); Mean Platelet Volume 11.2 fL (9.1-12.4); NEUTROPHILS ABSOLUTE AUTO 7.87 K/mm3 (1.96-9.15); NEUTROPHILS PERCENT AUTO 80 % (41-73); Platelet Count 141 K/mm3 (150-400); RDW Coefficient Variation 14.3 % (11.7-14.2); RDW Standard Deviation 47.7 fL (35.1-46.3); Red Blood Cell Count 2.56 M/mm3 (3.80-5.20)
[2018-11-18 05:37] LABS: Magnesium, Blood 1.9 mg/dL (1.6-2.4)
[2018-11-18 05:44] LABS: Albumin, Blood 2.2 g/dL (3.4-5.0); Anion Gap 8 mmol/L (6-16); Blood Urea Nitrogen 34 mg/dL (8-24); Bun/Creatinine Ratio 13.3 (12.0-20.0); CO2, Blood 23 mmol/L (21-32); Calcium, Blood 7.6 mg/dL (8.5-10.1); Chloride, Blood 113 mmol/L (98-108); Creatinine, Blood 2.56 mg/dL (0.40-1.00); Glomerular Filtration Rate 19 (60-); Glucose, Blood 74 mg/dL (70-99); Phosphorus, Blood 2.8 mg/dL (2.5-4.9); Potassium, Blood 4.7 mmol/L (3.5-5.5); Sodium, Blood 144 mmol/L (136-145)
--- NOTE | 2018-11-18 07:35 | NUR ---
SHIFT SUMMARY RECEIVED PT TO 312, VIA W/C, DURING SHIFT REPORT. PT ABLE TO TX SELF TO BED WITH SBA. RECEIVED REPORT THAT PT ADMITTED FOR ARF WITH UROSTOMY IN LLQ AND ILEOSTOMY IN RUQ. UROSTOMY ATTACHED TO [place] CATH BAG, DRAINING SM AMT OF URINE. PER REPORT, PT WITH HX OF OVARIAN, LUNG, COLON, AND BLADDER CANCER. PT IS SUPPOSE TO RECEIVE IVF'S AT HOME; HOWEVER, INSURANCE DOES NOT PAY FOR THE AMOUNT THAT IS ORDERED. PT BECAME DEHYDRATED AND ENDED UP WITH UTI AND ARF. IVF'S INFUSING PER EMAR IN [facility] [place]. MEDIPORT ACCESSED IN LCW; WITH HEPARIN PER PROTOCOL. LABS OBTAINED FROM MEDIPORT PER JAEL ORDERS, PT REQUEST. NSR ON TELE. PT WOKE THIS AM WITH C/O OTT. DID NOT WANT TYLENOL. DR LOGAN NOTIFIED OF PT'S REQUEST. NEW ORDERS RECEIVED AND OBTAINED. CALL LT IN REACH. ABLE TO MAKE NEEDS KNOWN. PT HAS BEEN INDEPENDANT TO [facility] TO SELF CARE OSTOMY BAG AFTER OBSEVATION AND SBA THE FIRST COUPLE OF TIMES. NONSKID SOCKS PLACED WHEN ADMITTED TO . REPORT GIVEN TO ONCOMING RN.
--- NOTE | 2018-11-18 19:20 | NUR ---
SHIFT SUMMARY NIA DENIED PAIN THIS SHIFT. ILEOSTOMY AND UROSTOMY DRAINING WELL, PT MANAGES BOTH. MIVF RUNNING. POWERGLIDE AND MEDIPORT FLUSHING WELL. INDEPENDENT IN ROOM. TELE DISCONTINUED.
[2018-11-19 05:37] LABS: Hematocrit 23.6 % (33.0-51.0); Hemoglobin 7.4 g/dL (11.5-16.0)
[2018-11-19 06:06] LABS: Magnesium, Blood 1.5 mg/dL (1.6-2.4)
--- NOTE | 2018-11-19 06:06 | NUR ---
SHIFT SUMMARY PT RESTING QUIETLY, SUPINE LF, WITH TV ON DURING BS REPORT. NO C/O, DENIED NEEDS. IVF'S INFUSING PER EMAR. PT WITH ILEOSTOMY AND UROSTOMY, INDEPENDANT TO BTHRM. PT'S DAUGHTER IN TO VISIT DURING THE DAY. PT ADMITTED FOR ARF AND NOT RECEIVING ORDERED AMOUNT OF FLUIDS WHILE AT HOME. PT TO HAVE DETAILS OF ORDERED HOME IVF'S SORTED OUT BEFORE BEING D/C'D BACK HOME. PT WAKES EASILY FOR CARE DURING THE NIGHT, BUT HAS BEEN A LITTLE IRRITABLE ABOUT IT TONIGHT. PT DOES NOT LIKE LISTENING TO IV PUMP NOISE. CALL LT IN REACH.
[2018-11-19 06:09] LABS: Albumin, Blood 2.2 g/dL (3.4-5.0); Anion Gap 5 mmol/L (6-16); Blood Urea Nitrogen 30 mg/dL (8-24); Bun/Creatinine Ratio 12.9 (12.0-20.0); CO2, Blood 24 mmol/L (21-32); Calcium, Blood 7.8 mg/dL (8.5-10.1); Chloride, Blood 115 mmol/L (98-108); Creatinine, Blood 2.33 mg/dL (0.40-1.00); Glomerular Filtration Rate 21 (60-); Glucose, Blood 76 mg/dL (70-99); Phosphorus, Blood 3.2 mg/dL (2.5-4.9); Potassium, Blood 4.7 mmol/L (3.5-5.5); Sodium, Blood 144 mmol/L (136-145); Vancomycin, Random 23.3 ug/mL
[2018-11-19] MEDS ORDERED: ACET325 PO (12:22)
[2018-11-19] MEDS ORDERED: CEFP200 PO (12:22)
[2018-11-19] MEDS ORDERED: MELA3 PO (12:23)
[2018-11-19] MEDS ORDERED: FLONASE ALLERG9.9 ML (12:23)
[2018-11-19] MEDS ORDERED: Augmentin 875-1 EACH PO (12:24)
[2018-11-19] MEDS ORDERED: SACC250C PO (12:25)
--- NOTE | 2018-11-19 12:38 | NUR ---
INITIAL CLINICAL [facility] CARE VISIT: Referral received for Advanced care planning and s/s management. Symptom assessment done. Pt is 78 and has an ileostomy and urostomy s/p surg and tx for metastatic ovarian cancer and colon cancer. She has stage 4 CKD but is not on dialysis and states she does not believe she would want to consider dialysis but has discussed it "for years" with Dr Escobar. Other medical hx included COPD, benign brain tumor, depression and chronic dehydration with supplememtal IV fluid administration at home for nearly 8 years per pt. Recently her terminal make up operator home infusion pharmacy went out of business and she was referred to another [place] Pharmacy. She anticipated fluids and supplies to arrive in October but they never did and she became deydrated with n/v and profound weakness on admission. She states she still feels a little weak but much improved since her admission. She is looking forward to being home. She reports she is not having any pain, nausea, sorethroat, OTT, anxiety or distress. Her daughter is working with d/c planning here for re-set up of her Home infusion and HH services with [facility]. Pt has been pleased to have stayed out of the hospital even with all her medical conditions and needs over the last two years. We discussed advanced care planning and her wishes regarding resuscitation. She does not want to be on life support for a prolonged period but does want CPR and intubation if needed long enough to see if she will improve and return to her current baseling in regard to function and health. We discussed the consequences and statistics regarding sucessful resuscitation efforts. Pt has not completed a POLST and does not wish to. She has completed and AD and has a copy at home. I asked her to bring a copy to her PCP and to the hospital when she could and she stated she would. She has chosen her son as her primary surrogate decision maker in the event that she could not communicate her wishes. His name is Alex Hebert [phone]. Her PCP is Dr Brenden Britt at [facility]. She has a terminal make up operator relationship with [facility] due to her years of Home Infusion needs. Pt and I had a nice social visit after this conversation. She appears younger younger than her 78 years, despite her serious, chronic health issues.
--- NOTE | 2018-11-19 14:34 | NUR ---
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
--- NOTE | 2018-11-19 19:14 | NUR ---
PATIENT DISCHARGE: PATIENT DISCHARGED/XFR TO HOME HEALTH THIS SHIFT. MEDICATION RECONCILIATION COMPLETED. DISCHARGE EDUCATION COMPLETED WITH PATIENT AND FAMILY. MEDIPORT L CHEST HEPARIN LOCKED. PATIENT TRANSPORTED TO EXIT BY [facility] STAFF WITH WHEELCHAIR AT 1900. PATIENT DEPARTED [facility] VIA PRIVATE AUTO.
== END 2018-11-19 19:06 | disposition home or self-care (01) | DRG 682 ==
LOC: ER 10:27 → MEDS 13:34 → ICUE 15:21 → MEDS 15:21 → ICUE 11-16 01:54 → MEDS 11-17 17:48 → ICUE 11-17 17:50 → MEDS 11-17 19:12 → ENPENDDIS 11-19 10:42 → MEDS 11-19 19:06
PROVIDERS: Emergency Medicine; Family Medicine; Internal Medicine Nephrology; Nurse Practitioner Acute Care; ADMIT Internal Medicine
PROC: 3E033XZ Introduction of Vasopressor into Peripheral Vein, Percutaneous Approach (ICD-10-PCS; principal; 2018-11-16)
DX: N17.0 Acute kidney failure with tubular necrosis (principal); A41.51 Sepsis due to Escherichia coli [E. coli]; R65.21 Severe sepsis with septic shock; A41.81 Sepsis due to Enterococcus; E87.2 Acidosis; N39.0 Urinary tract infection, site not specified; N18.4 Chronic kidney disease, stage 4 (severe); I95.9 Hypotension, unspecified; E87.5 Hyperkalemia; E86.0 Dehydration; J44.9 Chronic obstructive pulmonary disease, unspecified; E88.09 Other disorders of plasma-protein metabolism, not elsewhere classified; Z93.6 Other artificial openings of urinary tract status; Z90.6 Acquired absence of other parts of urinary tract; R13.10 Dysphagia, unspecified; E83.42 Hypomagnesemia; D63.1 Anemia in chronic kidney disease; I12.9 Hypertensive chronic kidney disease with stage 1 through stage 4 chronic kidney disease, or unspecified chronic kidney disease; F32.9 Major depressive disorder, single episode, unspecified; R53.1 Weakness; Z28.20 Immunization not carried out because of patient decision for unspecified reason; Z85.43 Personal history of malignant neoplasm of ovary; Z85.038 Personal history of other malignant neoplasm of large intestine; Z85.118 Personal history of other malignant neoplasm of bronchus and lung; Z90.710 Acquired absence of both cervix and uterus; Z90.722 Acquired absence of ovaries, bilateral; Z90.49 Acquired absence of other specified parts of digestive tract; Z90.2 Acquired absence of lung [part of]; Z88.1 Allergy status to other antibiotic agents; Z79.899 Other long term (current) drug therapy; Z93.2 Ileostomy status; Z90.79 Acquired absence of other genital organ(s); Z87.440 Personal history of urinary (tract) infections; Z91.120 Patient's intentional underdosing of medication regimen due to financial hardship; Z92.3 Personal history of irradiation
CPT/HCPCS: 36415; 74230; 76770; 80048; 80053; 80069; 80202; 81001; 82330; 83605; 83735; 84100; 84132; 84145; 84478; 85014; 85018; 85025; 85027; 87040; 87077; 87081; 87086; 87186; 92611; 93005; 93010; 94640; 96361; 96365; 96375; 99285-25; C1751; G8996; G8997; G8998; J0610; J0696; J0881; J1642; J1650; J1815; J2405; J2543; J2550; J3370; J3475; J7030; J7060; J7120

== ENCOUNTER → 2018-11-27 | Outpatient (CLI) | payer MEDICARE, OTHER ==
[~2018-11-27] MED LIST changes: +ACET325 PO; +Augmentin 875-1 EACH PO; +CEFP200 PO; +CYAN500 PO; +FLONASE ALLERG9.9 ML; +ONDA4 PO; +SACC250C PO
[2018-11-27 15:22] LABS: Anion Gap 9 mmol/L (6-16); Blood Urea Nitrogen 25 mg/dL (8-24); Bun/Creatinine Ratio 12.7 (12.0-20.0); CO2, Blood 22 mmol/L (21-32); Calcium, Blood 7.8 mg/dL (8.5-10.1); Chloride, Blood 112 mmol/L (98-108); Creatinine, Blood 1.97 mg/dL (0.40-1.00); Glomerular Filtration Rate 26 (60-); Glucose, Blood 121 mg/dL (70-99); Magnesium, Blood 1.2 mg/dL (1.6-2.4); Phosphorus, Blood 3.2 mg/dL (2.5-4.9); Sodium, Blood 143 mmol/L (136-145)
== END | disposition home or self-care (01) ==
LOC: LAB HH 14:53
PROVIDERS: Internal Medicine Nephrology
DX: N18.3 Chronic kidney disease, stage 3 (moderate) (principal); D63.1 Anemia in chronic kidney disease
CPT/HCPCS: 80069; 83735

== ENCOUNTER → 2019-01-08 | Outpatient (CLI) | payer MEDICARE, OTHER ==
[2019-01-08 14:41] LABS: Free Thyroxine 0.97 ng/dL (0.70-1.60)
[2019-01-08 14:44] LABS: Thyroid Stimulating Hormone 1.74 uIU/mL (0.360-4.800); Triiodothyronine, Free 1.9 pg/mL (2.18-3.98)
== END ==
LOC: LAB SHORT 13:18 → LAB 13:18
PROVIDERS: Nurse Practitioner Family
DX: R63.4 Abnormal weight loss (principal); R68.89 Other general symptoms and signs
CPT/HCPCS: 84439; 84443; 84481

== ENCOUNTER → 2019-01-19 | Outpatient (CLI) | payer MEDICARE, OTHER ==
[2019-01-19 13:01] LABS: Percent Saturation 6.1 % (15.0-50.0)
== END | disposition home or self-care (01) ==
LOC: LAB SHORT 12:28 → LAB 12:28
PROVIDERS: Internal Medicine Hematology & Oncology
DX: N18.4 Chronic kidney disease, stage 4 (severe) (principal); D63.1 Anemia in chronic kidney disease
CPT/HCPCS: 82728; 83540; 83550

== ENCOUNTER → 2019-02-05 | Outpatient (CLI) | payer MEDICARE, OTHER ==
[2019-02-05 18:23] LABS: Albumin, Blood 2.9 g/dL (3.4-5.0); Anion Gap 6 mmol/L (6-16); Blood Urea Nitrogen 22 mg/dL (8-24); Bun/Creatinine Ratio 12.4 (12.0-20.0); CO2, Blood 23 mmol/L (21-32); Calcium, Blood 8.1 mg/dL (8.5-10.1); Chloride, Blood 114 mmol/L (98-108); Creatinine, Blood 1.77 mg/dL (0.40-1.00); Glomerular Filtration Rate 29 (60-); Glucose, Blood 71 mg/dL (70-99); Magnesium, Blood 1.5 mg/dL (1.6-2.4); Phosphorus, Blood 2.3 mg/dL (2.5-4.9); Potassium, Blood 4.3 mmol/L (3.5-5.5); Sodium, Blood 143 mmol/L (136-145)
== END ==
LOC: LAB SHORT 17:29 → LAB 17:29
PROVIDERS: Internal Medicine Nephrology
DX: N18.3 Chronic kidney disease, stage 3 (moderate) (principal); D63.1 Anemia in chronic kidney disease
CPT/HCPCS: 80069; 83735

== ENCOUNTER → 2019-03-12 | Outpatient (CLI) | payer MEDICARE, OTHER ==
[2019-03-12 17:12] LABS: Albumin, Blood 3.4 g/dL (3.4-5.0); Anion Gap 8 mmol/L (6-16); Blood Urea Nitrogen 38 mg/dL (8-24); Bun/Creatinine Ratio 12.8 (12.0-20.0); CO2, Blood 22 mmol/L (21-32); Calcium, Blood 8.8 mg/dL (8.5-10.1); Chloride, Blood 108 mmol/L (98-108); Creatinine, Blood 2.96 mg/dL (0.40-1.00); Glomerular Filtration Rate 16 (60-); Glucose, Blood 91 mg/dL (70-99); Potassium, Blood 4.8 mmol/L (3.5-5.5); Sodium, Blood 138 mmol/L (136-145)
== END | disposition home or self-care (01) ==
LOC: LAB 13:12 → LAB SHORT 13:12
PROVIDERS: Internal Medicine Nephrology
DX: N18.3 Chronic kidney disease, stage 3 (moderate) (principal); D63.1 Anemia in chronic kidney disease
CPT/HCPCS: 80069

== ENCOUNTER → 2019-03-25 | Outpatient (CLI) | payer MEDICARE, OTHER ==
[2019-03-25 15:41] LABS: Anion Gap 8 mmol/L (6-16); Blood Urea Nitrogen 34 mg/dL (8-24); CO2, Blood 22 mmol/L (21-32); Calcium, Blood 8.4 mg/dL (8.5-10.1); Chloride, Blood 112 mmol/L (98-108); Creatinine, Blood 2.62 mg/dL (0.40-1.00); Glomerular Filtration Rate 19 (60-); Glucose, Blood 64 mg/dL (70-99); Magnesium, Blood 1.4 mg/dL (1.6-2.4); Phosphorus, Blood 2.9 mg/dL (2.5-4.9); Potassium, Blood 4.3 mmol/L (3.5-5.5); Sodium, Blood 142 mmol/L (136-145)
[2019-03-25 15:45] LABS: Percent Saturation 18.9 % (15.0-50.0)
== END | disposition home or self-care (01) ==
LOC: LAB SHORT 15:17 → LAB 15:17
PROVIDERS: Internal Medicine Nephrology
DX: N18.4 Chronic kidney disease, stage 4 (severe) (principal); D63.1 Anemia in chronic kidney disease
CPT/HCPCS: 80069; 82728; 83540; 83550; 83735

== ENCOUNTER 2019-04-08 11:25 | Emergency (ER) | payer MEDICARE, OTHER ==
[~2019-04-08] VITALS: Ht 170.2 cm; Wt 52.0 kg
[2019-04-08 12:04] LABS: BASOPHILS ABSOLUTE AUTO 0.02 K/mm3 (0.00-0.23); BASOPHILS PERCENT AUTO 0 % (0-2); EOSINOPHILS ABSOLUTE AUTO 0.03 K/mm3 (0.00-0.68); EOSINOPHILS PERCENT AUTO 0 % (0-6); Hematocrit 38.9 % (33.0-51.0); Hemoglobin 11.7 g/dL (11.5-16.0); IMMATURE GRAN ABSOLUTE AUTO 0.06 K/mm3 (0.00-0.10); IMMATURE GRAN PERCENT AUTO 0 % (0-1); LYMPHOCYTES ABSOLUTE AUTO 1.01 K/mm3 (0.84-5.20); LYMPHOCYTES PERCENT AUTO 7 % (21-46); MONOCYTES ABSOLUTE AUTO 0.61 K/mm3 (0.16-1.47); MONOCYTES PERCENT AUTO 4 % (4-13); Mean Corpuscular HGB 27.5 pg (26.0-34.0); Mean Corpuscular HGB Conc 30.1 g/dL (31.5-36.5); Mean Corpuscular Volume 91 fL (80-100); Mean Platelet Volume 9.7 fL (9.1-12.4); NEUTROPHILS ABSOLUTE AUTO 12.18 K/mm3 (1.96-9.15); NEUTROPHILS PERCENT AUTO 88 % (41-73); Platelet Count 203 K/mm3 (150-400); RDW Coefficient Variation 20.8 % (11.7-14.2); RDW Standard Deviation 70.3 fL (35.1-46.3); Red Blood Cell Count 4.26 M/mm3 (3.80-5.20); White Blood Cell Count 13.91 K/mm3 (4.00-11.30)
[2019-04-08 12:30] LABS: International Normalized Ratio 0.96; Prothrombin Time Results 10.2 Sec (9.7-11.5)
[2019-04-08 12:34] LABS: Albumin, Blood 3.5 g/dL (3.4-5.0); Albumin/Globulin Ratio 0.8 (0.8-1.8); Bilirubin, Total 0.8 mg/dL (0.1-1.0); Bun/Creatinine Ratio 13.3 (12.0-20.0); Calcium, Blood 8.8 mg/dL (8.5-10.1); Creatinine, Blood 2.33 mg/dL (0.40-1.00); Globulin, Blood 4.4 g/dL (2.2-4.0); Potassium, Blood 4.7 mmol/L (3.5-5.5); Total Protein, Blood 7.9 g/dL (6.4-8.2)
== END 2019-04-08 12:16 | disposition other institution (70) ==
LOC: ER 11:25
PROVIDERS: Emergency Medicine; Physician Assistant
DX: T82.598A Other mechanical complication of other cardiac and vascular devices and implants, initial encounter (principal); Z88.1 Allergy status to other antibiotic agents; Z79.899 Other long term (current) drug therapy; Z87.891 Personal history of nicotine dependence; Z85.038 Personal history of other malignant neoplasm of large intestine; Z85.118 Personal history of other malignant neoplasm of bronchus and lung
CPT/HCPCS: 36415; 71046; 80053; 85025; 85610; 99283-25; J7030

== ENCOUNTER → 2019-04-09 | Outpatient (CLI) | payer MEDICARE ==
[~2019-04-09] MED LIST changes: +ALBU90OI INH; +Desyrel150 MG PO; +INFUVITE ADULT IV; +MAGNESIUM OXIDE PO; +Norco 10-325 T1 EACH PO; +VITAMIN D5000 UNIT PO
== END | disposition home or self-care (01) ==
LOC: LAB SHORT 09:31 → LAB 09:31
DX: T82.7XXA Infection and inflammatory reaction due to other cardiac and vascular devices, implants and grafts, initial encounter (principal)
CPT/HCPCS: 87070; 87077; 87186

== ENCOUNTER 2019-05-04 10:08 | Inpatient (IN) | payer MEDICARE, SELFPAY ==
--- NOTE | 2019-05-04 14:04 | NUR ---
PT C/O DISCOMFORT LT CHEST AREA/INCREASES W/DEEP BREATHS, BS MUFFFLED LT SIDE AT THIS TIME. REFUSES PAIN MED, HEAT TO AREA. DR. HOLLY AT BEDSIDE TO DISCUSS W/PT RADIOLOGY FINDINGS AND PLAN.
--- NOTE | 2019-05-04 16:14 | NUR ---
PT LEFT FOR CT SCAN AT [address] GUIDED CHEST TUBE INSERTION. DAUGHTER Jordana AWARE. PT STATES SHE IS COMFORTABLE ENOUGH TO GO HOME. EDUCATED HER ON PNUEMOTHORAX AND PLAN TO KEEP IN OBSERVATION OVERNIGHT ON SURGICAL FLOOR. REPORT TO JIMMIE MILLIGAN. ALL BELONINGS SENT WITH DAUGHTER.
--- NOTE | 2019-05-04 17:12 | NUR ---
ARRIVAL TO UNIT ARRIVAL TO UNIT FROM IMAGING. PT TO FLOOR S/P [place] VALVE PLACEMENT TO LEFT CHEST WALL R/T PNEUMOTHORAX THAT OCCURED DURING MEDIPORT PLACEMENT. PT IS ALERT AND ORIENTED. VSS. ON 2L O2 VIA NC. PT DENIES SOB. LUNG SOUNDS DIMINISHED ON LEFT SIDE. [place] VALVE TO WATER SEAL PER DR. FLORENCE ORDERS. PT WAS ABLE TO INDEP GET OFF OF GURNEY TO GET INTO BED. CHRONIC ILEOSTOMY THAT PT MANAGES INDEPENDENTLY. PT DENIES NEED FOR PAIN MEDICATION AT THIS TIME. ORIENTED TO ROOM AND CALL LIGHT. WILL CONT TO MONITOR.
--- NOTE | 2019-05-04 20:26 | NUR ---
INCREASED PAIN UPON ASSESSMENT PT REPORTING 10/10 PAIN WITH INSIRATION AT CHEST TUBE INSERTION SITE. LUNG SOUND CLEAR BILATERAL, NO CREPITUS, 2L VIA NC 92-95%. MEDICATED FOR DISCOMFORT WITH [address] FLORENCE NOTIFIED OF INCREASED DISCOMFORT. STAT CHEST X-RAY ORDERED + DR FLORENCE AT BEDSIDE POST X-RAY. NEW ORDERS FOR DILAUDID ADVICE CLERK. PT REPORTING DECREASED DISCOMFORT WITH LUDIVINA AT BEDSIDE. ENCOURAGE DEEP BREATHING TOLERATED. CALL LIGHT WITHIN REACH.
--- NOTE | 2019-05-05 06:29 | NUR ---
SHIFT SUMMARY PT RESTED WELL T/O AM. AAOX4/ANXIOUS AT TIMES. DISCOMFORT CONTROLLED WITH 2 NORCO Q4 + DILAUDID VP MEDICAL. NO NAUSEA/EMESIS. DRESSING TO RIGHT + LEFT CHEST C/D/I. CHEST TUBE WITH TEGADERM SECURE TO WATER SEAL. LUNG SOUNDS CLEAR WITH DIMINISHED BASES BILATERALLY. OSTOMY + UROSTOMY WITH MODERATE AMOUNT OUTPUT. IVF TKO FOR DILAUDID VP MEDICAL. CHEST X-RAY COMPLETED YESTARDAY EVENING PER STAT REQUEST R/T INCREASED DISCOMFORT. DR FLORENCE AT BEDSIDE POST CHEST X-RAY + NEW ORDERS OBTAINED AT THAT TIME TO START DILAUDID VP MEDICAL. PT RESTING WELL AT THIS TIME, BLAYNE, CALL LIGHT IN REACH. WILL REPORT TO DAY SHIFT RN.
--- NOTE | 2019-05-05 07:06 | NUR ---
05/05/19 0706 Aminah Nelson VERIFICATIONS: EDIT CHART.
--- NOTE | 2019-05-05 16:57 | NUR ---
DISCHARGE PT EDUCATED ON AND RECEIVED PRINTED DC INSTRUCTIONS. PT VERB AN UNDERSTANDING. HARD RX FOR NORCO GIVEN TO PT. MEDIPORT INFO GIVEN TO PT AND REMAINS CDI WITH DRESSING DR. FLORENCE PLACED IN SURGERY. PT LEFT WITH ALL PERSONAL BELONGINGS AND ESCORTED OUT VIA W/C.
== END 2019-05-05 16:58 | disposition home or self-care (01) | DRG 200 ==
LOC: ORSCMMR 10:08 → ORD 11:30 → SURS 16:56 → ORSCMMR 17:05 → SURS 18:10
PROVIDERS: ADMIT Surgery
PROC: 02HV33Z Insertion of Infusion Device into Superior Vena Cava, Percutaneous Approach (ICD-10-PCS; principal; 2019-05-04 11:30)
DX: J93.9 Pneumothorax, unspecified (principal); N18.4 Chronic kidney disease, stage 4 (severe); I12.9 Hypertensive chronic kidney disease with stage 1 through stage 4 chronic kidney disease, or unspecified chronic kidney disease; Z85.038 Personal history of other malignant neoplasm of large intestine; Z85.43 Personal history of malignant neoplasm of ovary; J44.9 Chronic obstructive pulmonary disease, unspecified; E86.0 Dehydration
CPT/HCPCS: 32557; 71045; 71046; 77001; 82435; 84132; 84295; A9270-GY; C1788; J0690; J1170; J1642; J2250; J2704; J3010; J7030; J7050; J7120

== ENCOUNTER → 2019-05-12 | Outpatient (CLI) | payer MEDICARE, OTHER | END | disposition home or self-care (01) | LOC: LAB SHORT 17:02 → LAB 17:02 | DX: Z22.39 Carrier of other specified bacterial diseases (principal); Z86.19 Personal history of other infectious and parasitic diseases | CPT/HCPCS: 87081 ==

== ENCOUNTER → 2019-06-03 | Outpatient (CLI) | payer MEDICARE, OTHER ==
[2019-06-03 13:24] LABS: Albumin, Blood 3.4 g/dL (3.4-5.0); Anion Gap 7 mmol/L (6-16); Blood Urea Nitrogen 33 mg/dL (8-24); Bun/Creatinine Ratio 18.3 (12.0-20.0); CO2, Blood 26 mmol/L (21-32); Calcium, Blood 8.1 mg/dL (8.5-10.1); Chloride, Blood 110 mmol/L (98-108); Glomerular Filtration Rate 29 (60-); Glucose, Blood 152 mg/dL (70-99); Phosphorus, Blood 2.9 mg/dL (2.5-4.9); Potassium, Blood 4.2 mmol/L (3.5-5.5); Sodium, Blood 143 mmol/L (136-145)
== END | disposition home or self-care (01) ==
LOC: LAB SHORT 12:40 → LAB 12:40
PROVIDERS: Internal Medicine Nephrology
DX: N18.4 Chronic kidney disease, stage 4 (severe) (principal); D63.1 Anemia in chronic kidney disease
CPT/HCPCS: 80069; 83735; 85018

== ENCOUNTER → 2019-07-22 | Outpatient (CLI) | payer MEDICARE, OTHER ==
[2019-07-22 19:06] LABS: Albumin, Blood 3.2 g/dL (3.4-5.0); Anion Gap 4 mmol/L (6-16); Blood Urea Nitrogen 26 mg/dL (8-24); Bun/Creatinine Ratio 14.5 (12.0-20.0); CO2, Blood 22 mmol/L (21-32); Calcium, Blood 8.5 mg/dL (8.5-10.1); Chloride, Blood 113 mmol/L (98-108); Creatinine, Blood 1.79 mg/dL (0.40-1.00); Glomerular Filtration Rate 29 (60-); Glucose, Blood 170 mg/dL (70-99); Magnesium, Blood 1.2 mg/dL (1.6-2.4); Phosphorus, Blood 2.9 mg/dL (2.5-4.9); Potassium, Blood 3.7 mmol/L (3.5-5.5); Sodium, Blood 139 mmol/L (136-145)
== END | disposition home or self-care (01) ==
LOC: LAB 18:39 → LAB SHORT 18:39
PROVIDERS: Internal Medicine Nephrology
DX: N18.3 Chronic kidney disease, stage 3 (moderate) (principal); D63.1 Anemia in chronic kidney disease
CPT/HCPCS: 80069; 83735; 85018

== ENCOUNTER → 2019-09-09 | Outpatient (CLI) | payer MEDICARE, OTHER ==
[2019-09-09 19:57] LABS: Albumin, Blood 3.3 g/dL (3.4-5.0); Anion Gap 6 mmol/L (6-16); Blood Urea Nitrogen 33 mg/dL (8-24); Bun/Creatinine Ratio 16.5 (12.0-20.0); CO2, Blood 16 mmol/L (21-32); Calcium, Blood 7.9 mg/dL (8.5-10.1); Chloride, Blood 119 mmol/L (98-108); Glomerular Filtration Rate 26 (60-); Glucose, Blood 106 mg/dL (70-99); Phosphorus, Blood 3.3 mg/dL (2.5-4.9); Potassium, Blood 4.9 mmol/L (3.5-5.5); Sodium, Blood 141 mmol/L (136-145)
[2019-09-09 20:09] LABS: Magnesium, Blood 1.1 mg/dL (1.6-2.4)
== END | disposition home or self-care (01) ==
LOC: LAB HH 11:45
PROVIDERS: Internal Medicine Nephrology
DX: I12.9 Hypertensive chronic kidney disease with stage 1 through stage 4 chronic kidney disease, or unspecified chronic kidney disease (principal); N18.4 Chronic kidney disease, stage 4 (severe); D63.1 Anemia in chronic kidney disease; E86.0 Dehydration; E83.41 Hypermagnesemia
CPT/HCPCS: 80069; 83735; 85018

== ENCOUNTER → 2019-09-30 | Outpatient (CLI) | payer MEDICARE, OTHER ==
[2019-09-30 19:12] LABS: BASOPHILS ABSOLUTE AUTO 0.03 K/mm3 (0.00-0.23); BASOPHILS PERCENT AUTO 0 % (0-2); EOSINOPHILS ABSOLUTE AUTO 0.07 K/mm3 (0.00-0.68); EOSINOPHILS PERCENT AUTO 1 % (0-6); Hematocrit 29.2 % (33.0-51.0); Hemoglobin 9.1 g/dL (11.5-16.0); IMMATURE GRAN ABSOLUTE AUTO 0.09 K/mm3 (0.00-0.10); IMMATURE GRAN PERCENT AUTO 1 % (0-1); LYMPHOCYTES ABSOLUTE AUTO 1.11 K/mm3 (0.84-5.20); LYMPHOCYTES PERCENT AUTO 13 % (21-46); MONOCYTES ABSOLUTE AUTO 0.36 K/mm3 (0.16-1.47); MONOCYTES PERCENT AUTO 4 % (4-13); Mean Corpuscular HGB 28.4 pg (26.0-34.0); Mean Corpuscular HGB Conc 31.2 g/dL (31.5-36.5); Mean Corpuscular Volume 91 fL (80-100); Mean Platelet Volume 10.1 fL (9.1-12.4); NEUTROPHILS ABSOLUTE AUTO 6.86 K/mm3 (1.96-9.15); NEUTROPHILS PERCENT AUTO 81 % (41-73); Platelet Count 225 K/mm3 (150-400); RDW Coefficient Variation 15.1 % (11.7-14.2); RDW Standard Deviation 50.4 fL (35.1-46.3); White Blood Cell Count 8.52 K/mm3 (4.00-11.30)
[2019-09-30 19:29] LABS: Bun/Creatinine Ratio 14.7 (12.0-20.0); Calcium, Blood 7.4 mg/dL (8.5-10.1); Creatinine, Blood 2.11 mg/dL (0.40-1.00); Potassium, Blood 4.5 mmol/L (3.5-5.5)
== END ==
LOC: LAB SHORT 17:42 → LAB 17:42
PROVIDERS: Nurse Practitioner Family
DX: N18.4 Chronic kidney disease, stage 4 (severe) (principal)
CPT/HCPCS: 80048; 85025

== ENCOUNTER 2020-02-17 17:56 | Inpatient (IN) | payer MEDICARE, OTHER ==
[~2020-02-17] VITALS: Ht 170.2 cm; Wt 57.0 kg
[2020-02-17 18:40] LABS: Source, Urine Urostomy Bag
[2020-02-17 18:43] LABS: Appearance, Urine Cloudy (Clear); Bilirubin, Urine Neg (Neg); Blood, Urine 5+ (Neg); Color, Urine Yellow (P-Yellow); Glucose Qualitative, Urine Neg (Neg); Ketones, Urine Neg (Neg); Leukocyte Esterase, Urine 3+ (Neg); Nitrite, Urine Pos (Neg); Protein, Urine 3+ (Neg); Specific Gravity, Urine 1.015 (1.003-1.022); Urobilinogen, Urine NORM (Normal)
[2020-02-17 18:44] LABS: BASOPHILS ABSOLUTE AUTO 0.01 K/mm3 (0.00-0.23); BASOPHILS PERCENT AUTO 0 % (0-2); EOSINOPHILS PERCENT AUTO 0 % (0-6); Hematocrit 27.5 % (33.0-51.0); Hemoglobin 8.7 g/dL (11.5-16.0); IMMATURE GRAN ABSOLUTE AUTO 0.07 K/mm3 (0.00-0.10); IMMATURE GRAN PERCENT AUTO 1 % (0-1); LYMPHOCYTES ABSOLUTE AUTO 0.33 K/mm3 (0.84-5.20); LYMPHOCYTES PERCENT AUTO 3 % (21-46); MONOCYTES ABSOLUTE AUTO 0.37 K/mm3 (0.16-1.47); MONOCYTES PERCENT AUTO 4 % (4-13); Mean Corpuscular HGB 29.2 pg (26.0-34.0); Mean Corpuscular HGB Conc 31.6 g/dL (31.5-36.5); Mean Corpuscular Volume 92 fL (80-100); Mean Platelet Volume 9.9 fL (9.1-12.4); NEUTROPHILS ABSOLUTE AUTO 9.83 K/mm3 (1.96-9.15); NEUTROPHILS PERCENT AUTO 93 % (41-73); Platelet Count 145 K/mm3 (150-400); RDW Coefficient Variation 15.9 % (11.7-14.2); RDW Standard Deviation 54.4 fL (35.1-46.3); Red Blood Cell Count 2.98 M/mm3 (3.80-5.20); White Blood Cell Count 10.61 K/mm3 (4.00-11.30)
[2020-02-17 18:55] LABS: Bacteria Many /hpf; Squamous Epithelial Cells Not Seen /hpf (Few)
[2020-02-17 19:08] LABS: Albumin/Globulin Ratio 0.9 (0.8-1.8); Bilirubin, Total 0.6 mg/dL (0.1-1.0); Bun/Creatinine Ratio 16.7 (12.0-20.0); Calcium, Blood 6.9 mg/dL (8.5-10.1); Creatinine, Blood 2.15 mg/dL (0.40-1.00); Globulin, Blood 3.4 g/dL (2.2-4.0); Potassium, Blood 3.9 mmol/L (3.5-5.5); Total Protein, Blood 6.4 g/dL (6.4-8.2)
[2020-02-18 04:37] LABS: BASOPHILS ABSOLUTE AUTO 0.01 K/mm3 (0.00-0.23); BASOPHILS PERCENT AUTO 0 % (0-2); EOSINOPHILS PERCENT AUTO 0 % (0-6); Hematocrit 25.4 % (33.0-51.0); IMMATURE GRAN ABSOLUTE AUTO 0.06 K/mm3 (0.00-0.10); IMMATURE GRAN PERCENT AUTO 1 % (0-1); LYMPHOCYTES ABSOLUTE AUTO 0.32 K/mm3 (0.84-5.20); LYMPHOCYTES PERCENT AUTO 3 % (21-46); MONOCYTES ABSOLUTE AUTO 0.27 K/mm3 (0.16-1.47); MONOCYTES PERCENT AUTO 2 % (4-13); Mean Corpuscular HGB Conc 31.5 g/dL (31.5-36.5); Mean Corpuscular Volume 92 fL (80-100); Mean Platelet Volume 10.2 fL (9.1-12.4); NEUTROPHILS ABSOLUTE AUTO 10.76 K/mm3 (1.96-9.15); NEUTROPHILS PERCENT AUTO 94 % (41-73); Platelet Count 120 K/mm3 (150-400); RDW Coefficient Variation 16.1 % (11.7-14.2); RDW Standard Deviation 53.8 fL (35.1-46.3); Red Blood Cell Count 2.76 M/mm3 (3.80-5.20); White Blood Cell Count 11.42 K/mm3 (4.00-11.30)
[2020-02-18 04:54] LABS: Bun/Creatinine Ratio 14.1 (12.0-20.0); Calcium, Blood 6.3 mg/dL (8.5-10.1); Creatinine, Blood 2.13 mg/dL (0.40-1.00); Potassium, Blood 4.4 mmol/L (3.5-5.5)
[2020-02-18 05:02] LABS: Magnesium, Blood 0.9 mg/dL (1.6-2.4)
[2020-02-18 09:08] LABS: Vancomycin, Random 8.5 ug/mL
[2020-02-19 04:57] LABS: Hematocrit 25.1 % (33.0-51.0); Hemoglobin 8.1 g/dL (11.5-16.0)
[2020-02-19 05:20] LABS: Albumin, Blood 2.4 g/dL (3.4-5.0); Anion Gap 5 mmol/L (6-16); Blood Urea Nitrogen 27 mg/dL (8-24); Bun/Creatinine Ratio 12.7 (12.0-20.0); CO2, Blood 24 mmol/L (21-32); Chloride, Blood 112 mmol/L (98-108); Creatinine, Blood 2.13 mg/dL (0.40-1.00); Glomerular Filtration Rate 24 (60-); Glucose, Blood 115 mg/dL (70-99); Magnesium, Blood 1.6 mg/dL (1.6-2.4); Potassium, Blood 3.7 mmol/L (3.5-5.5); Sodium, Blood 141 mmol/L (136-145)
[2020-02-20 06:10] LABS: Hematocrit 22.7 % (33.0-51.0); Hemoglobin 7.1 g/dL (11.5-16.0)
[2020-02-20 06:21] LABS: Albumin, Blood 2.2 g/dL (3.4-5.0); Anion Gap 1 mmol/L (6-16); Blood Urea Nitrogen 27 mg/dL (8-24); Bun/Creatinine Ratio 14.1 (12.0-20.0); CO2, Blood 34 mmol/L (21-32); Calcium, Blood 7.3 mg/dL (8.5-10.1); Chloride, Blood 109 mmol/L (98-108); Creatinine, Blood 1.91 mg/dL (0.40-1.00); Glomerular Filtration Rate 27 (60-); Glucose, Blood 92 mg/dL (70-99); Magnesium, Blood 1.9 mg/dL (1.6-2.4); Phosphorus, Blood 3.1 mg/dL (2.5-4.9); Potassium, Blood 3.8 mmol/L (3.5-5.5); Sodium, Blood 144 mmol/L (136-145)
[2020-02-20 08:22] LABS: Percent Saturation 22.8 % (15.0-50.0)
[2020-02-20] MEDS ORDERED: CALC.25 PO (14:38)
[2020-02-20] MEDS ORDERED: MAGNESIUM OXID500 MG PO (14:38)
== END 2020-02-20 15:25 | disposition home or self-care (01) | DRG 698 ==
LOC: ER 17:56 → PCU 22:30 → MEDS 22:30 → PCU 22:37 → MEDS 02-18 15:26
PROVIDERS: Emergency Medicine; Internal Medicine Nephrology; ADMIT Internal Medicine
PROC: 30233N1 Transfusion of Nonautologous Red Blood Cells into Peripheral Vein, Percutaneous Approach (ICD-10-PCS; principal; 2020-02-20)
DX: T83.518A Infection and inflammatory reaction due to other urinary catheter, initial encounter (principal); A41.51 Sepsis due to Escherichia coli [E. coli]; A40.8 Other streptococcal sepsis; N17.9 Acute kidney failure, unspecified; N25.81 Secondary hyperparathyroidism of renal origin; E87.2 Acidosis; N18.4 Chronic kidney disease, stage 4 (severe); D63.1 Anemia in chronic kidney disease; E83.42 Hypomagnesemia; I12.9 Hypertensive chronic kidney disease with stage 1 through stage 4 chronic kidney disease, or unspecified chronic kidney disease; E11.22 Type 2 diabetes mellitus with diabetic chronic kidney disease; E86.9 Volume depletion, unspecified; E83.39 Other disorders of phosphorus metabolism; M85.80 Other specified disorders of bone density and structure, unspecified site; F32.9 Major depressive disorder, single episode, unspecified; Z51.5 Encounter for palliative care; E55.9 Vitamin D deficiency, unspecified; Z93.2 Ileostomy status; Z93.6 Other artificial openings of urinary tract status; Z85.038 Personal history of other malignant neoplasm of large intestine; Z85.43 Personal history of malignant neoplasm of ovary; Z85.118 Personal history of other malignant neoplasm of bronchus and lung; Z87.891 Personal history of nicotine dependence
CPT/HCPCS: 36415; 71045; 76770; 80048; 80053; 80069; 80202; 81001; 82728; 83540; 83550; 83605; 83735; 84145; 85014; 85018; 85025; 86850; 86900; 86901; 86923; 87077; 87086; 87186; 93005; 93010; 94760; 96361; 96365; 96366; 96367; 99285-25; A9270; J0696; J0881; J1642; J2405; J3370; J3475; J7030; J7050; J7060; J7070; P9016

== ENCOUNTER → 2020-03-16 | Outpatient (CLI) | payer MEDICARE, OTHER ==
[~2020-03-16] MED LIST changes: +CALC.25 PO; +MAGNESIUM OXID500 MG PO
[2020-03-16 19:29] LABS: Hemoglobin 12.7 g/dL (11.5-16.0)
[2020-03-16 20:15] LABS: Albumin, Blood 3.2 g/dL (3.4-5.0); Anion Gap 7 mmol/L (6-16); Blood Urea Nitrogen 26 mg/dL (8-24); Bun/Creatinine Ratio 13.3 (12.0-20.0); CO2, Blood 24 mmol/L (21-32); Calcium, Blood 9.1 mg/dL (8.5-10.1); Chloride, Blood 110 mmol/L (98-108); Creatinine, Blood 1.96 mg/dL (0.40-1.00); Glomerular Filtration Rate 26 (60-); Glucose, Blood 125 mg/dL (70-99); Magnesium, Blood 1.6 mg/dL (1.6-2.4); Phosphorus, Blood 3.1 mg/dL (2.5-4.9); Potassium, Blood 4.8 mmol/L (3.5-5.5); Sodium, Blood 141 mmol/L (136-145)
== END | disposition home or self-care (01) ==
LOC: LAB HH 17:26
PROVIDERS: Internal Medicine Nephrology
DX: N18.4 Chronic kidney disease, stage 4 (severe) (principal); D63.1 Anemia in chronic kidney disease
CPT/HCPCS: 80069; 83735; 85014; 85018

== ENCOUNTER → 2020-03-23 | Outpatient (CLI) | payer MEDICARE, OTHER ==
[2020-03-23 20:22] LABS: Percent Saturation 14.9 % (15.0-50.0)
== END ==
LOC: LAB HH 18:28
PROVIDERS: Internal Medicine Nephrology
DX: D50.9 Iron deficiency anemia, unspecified (principal); N18.9 Chronic kidney disease, unspecified; D63.1 Anemia in chronic kidney disease
CPT/HCPCS: 82728; 83540; 83550

== ENCOUNTER → 2020-06-22 | Outpatient (CLI) | payer MEDICARE | END | disposition home or self-care (01) | LOC: LAB SHORT 18:11 → LAB 18:11 | PROVIDERS: Internal Medicine Nephrology | DX: N18.3 Chronic kidney disease, stage 3 (moderate) (principal); D63.1 Anemia in chronic kidney disease; D52.8 Other folate deficiency anemias | CPT/HCPCS: 82728; 83540; 83550 ==

== ENCOUNTER → 2020-07-20 | Outpatient (CLI) | payer MEDICARE ==
[2020-07-20 20:28] LABS: Magnesium, Blood 1.3 mg/dL (1.6-2.4)
[2020-07-20 20:32] LABS: Albumin, Blood 3.1 g/dL (3.4-5.0); Anion Gap 8 mmol/L (6-16); Blood Urea Nitrogen 38 mg/dL (8-24); Bun/Creatinine Ratio 18.4 (12.0-20.0); CO2, Blood 19 mmol/L (21-32); Calcium, Blood 8.6 mg/dL (8.5-10.1); Chloride, Blood 117 mmol/L (98-108); Creatinine, Blood 2.06 mg/dL (0.40-1.00); Glomerular Filtration Rate 25 (60-); Glucose, Blood 98 mg/dL (70-99); Phosphorus, Blood 2.5 mg/dL (2.5-4.9); Potassium, Blood 4.7 mmol/L (3.5-5.5); Sodium, Blood 144 mmol/L (136-145)
== END | disposition home or self-care (01) ==
LOC: LAB SHORT 17:55 → LAB 17:55
PROVIDERS: Internal Medicine Nephrology
DX: N18.4 Chronic kidney disease, stage 4 (severe) (principal); D63.1 Anemia in chronic kidney disease
CPT/HCPCS: 80069; 83735

== ENCOUNTER → 2020-08-10 | Outpatient (CLI) | payer MEDICARE | END | disposition home or self-care (01) | LOC: LAB HH 17:34 | DX: K52.0 Gastroenteritis and colitis due to radiation (principal); E86.0 Dehydration | CPT/HCPCS: 83735 ==

== ENCOUNTER → 2020-08-17 | Outpatient (CLI) | payer MEDICARE ==
[2020-08-17 20:13] LABS: Albumin, Blood 3.1 g/dL (3.4-5.0); Anion Gap 7 mmol/L (6-16); Blood Urea Nitrogen 21 mg/dL (8-24); Bun/Creatinine Ratio 11.2 (12.0-20.0); CO2, Blood 19 mmol/L (21-32); Calcium, Blood 8.5 mg/dL (8.5-10.1); Chloride, Blood 118 mmol/L (98-108); Creatinine, Blood 1.88 mg/dL (0.40-1.00); Glomerular Filtration Rate 27 (60-); Glucose, Blood 87 mg/dL (70-99); Magnesium, Blood 2.2 mg/dL (1.6-2.4); Phosphorus, Blood 3.6 mg/dL (2.5-4.9); Potassium, Blood 4.7 mmol/L (3.5-5.5); Sodium, Blood 144 mmol/L (136-145)
== END | disposition home or self-care (01) ==
LOC: LAB SHORT 18:48 → LAB HH 18:48
PROVIDERS: Internal Medicine Nephrology
DX: Z45.2 Encounter for adjustment and management of vascular access device (principal); E11.22 Type 2 diabetes mellitus with diabetic chronic kidney disease; I12.9 Hypertensive chronic kidney disease with stage 1 through stage 4 chronic kidney disease, or unspecified chronic kidney disease; N18.30 Chronic kidney disease, stage 3 unspecified; E86.0 Dehydration; D63.1 Anemia in chronic kidney disease; N25.81 Secondary hyperparathyroidism of renal origin; E55.9 Vitamin D deficiency, unspecified; E78.00 Pure hypercholesterolemia, unspecified; R76.9 Abnormal immunological finding in serum, unspecified; R94.5 Abnormal results of liver function studies; R94.6 Abnormal results of thyroid function studies
CPT/HCPCS: 80069; 83735

== ENCOUNTER → 2020-08-24 | Outpatient (CLI) | payer MEDICARE | END | disposition home or self-care (01) | LOC: LAB HH 17:45 | DX: E11.22 Type 2 diabetes mellitus with diabetic chronic kidney disease (principal); N18.9 Chronic kidney disease, unspecified | CPT/HCPCS: 85018 ==

== ENCOUNTER → 2020-09-07 | Outpatient (CLI) | payer MEDICARE ==
[2020-09-07 19:21] LABS: BASOPHILS ABSOLUTE AUTO 0.02 K/mm3 (0.00-0.23); BASOPHILS PERCENT AUTO 0 % (0-2); EOSINOPHILS ABSOLUTE AUTO 0.02 K/mm3 (0.00-0.68); EOSINOPHILS PERCENT AUTO 0 % (0-6); Hematocrit 42.4 % (33.0-51.0); Hemoglobin 12.3 g/dL (11.5-16.0); IMMATURE GRAN ABSOLUTE AUTO 0.03 K/mm3 (0.00-0.10); IMMATURE GRAN PERCENT AUTO 1 % (0-1); LYMPHOCYTES ABSOLUTE AUTO 1.24 K/mm3 (0.84-5.20); LYMPHOCYTES PERCENT AUTO 20 % (21-46); MONOCYTES ABSOLUTE AUTO 0.24 K/mm3 (0.16-1.47); MONOCYTES PERCENT AUTO 4 % (4-13); Mean Corpuscular HGB 27.3 pg (26.0-34.0); Mean Corpuscular Volume 94 fL (80-100); Mean Platelet Volume 10.4 fL (9.1-12.4); NEUTROPHILS ABSOLUTE AUTO 4.69 K/mm3 (1.96-9.15); NEUTROPHILS PERCENT AUTO 75 % (41-73); Platelet Count 167 K/mm3 (150-400); RDW Standard Deviation 55.7 fL (35.1-46.3); Red Blood Cell Count 4.51 M/mm3 (3.80-5.20); White Blood Cell Count 6.24 K/mm3 (4.00-11.30)
[2020-09-07 20:46] LABS: Albumin/Globulin Ratio 0.9 (0.8-1.8); Bilirubin, Direct 0.2 mg/dL (0.0-0.3); Bilirubin, Indirect 0.4 mg/dL (0.1-0.7); Bilirubin, Total 0.6 mg/dL (0.1-1.0); Globulin, Blood 3.3 g/dL (2.2-4.0); Magnesium, Blood 1.8 mg/dL (1.6-2.4); Total Protein, Blood 6.3 g/dL (6.4-8.2)
== END | disposition home or self-care (01) ==
LOC: LAB SHORT 17:38 → LAB 17:38
PROVIDERS: Internal Medicine Nephrology
DX: N18.30 Chronic kidney disease, stage 3 unspecified (principal); D63.1 Anemia in chronic kidney disease; N25.81 Secondary hyperparathyroidism of renal origin; E55.9 Vitamin D deficiency, unspecified; E78.00 Pure hypercholesterolemia, unspecified; R76.9 Abnormal immunological finding in serum, unspecified; R94.5 Abnormal results of liver function studies; R94.6 Abnormal results of thyroid function studies; D52.9 Folate deficiency anemia, unspecified
CPT/HCPCS: 80076; 82746; 83735; 83970; 85025

== ENCOUNTER → 2020-09-28 | Outpatient (CLI) | payer MEDICARE ==
[~2020-09-28] MED LIST changes: +HYDROCODONE-AC1 EAC7 PO
== END | disposition home or self-care (01) ==
LOC: LAB SHORT 17:46 → LAB HH 17:46
DX: E86.0 Dehydration (principal)
CPT/HCPCS: 83735

== ENCOUNTER → 2020-10-19 | Outpatient (CLI) | payer MEDICARE ==
[~2020-10-19] MED LIST changes: -HYDROCODONE-AC1 EAC7 PO
== END | disposition home or self-care (01) ==
LOC: LAB HH 11:30
DX: E61.2 Magnesium deficiency (principal)
CPT/HCPCS: 83735

== ENCOUNTER → 2020-11-08 | Outpatient (CLI) | payer MEDICARE ==
[~2020-11-08] MED LIST changes: +HYDROCODONE-AC1 EAC7 PO
== END | disposition home or self-care (01) ==
LOC: LAB HH 17:54
DX: E86.0 Dehydration (principal)
CPT/HCPCS: 83735

== ENCOUNTER 2020-11-25 10:01 | Day surgery (SDC) | payer MEDICARE ==
--- NOTE | 2020-11-25 11:04 | NUR ---
PT CAME TO [facility] FOR POWERGLIDE INSERTION. DISCHARGED WITH DTR, DTR WILL TAKE PT UP TO SDS TO ADMIT. PT TO HAVE INFECTED MEDIPORT REMOVED AT 1200 TODAY.
[2020-11-25] MEDS ORDERED: CEPH250A PO (12:19)
== END 2020-11-25 11:04 | disposition home or self-care (01) ==
LOC: ATC 10:01
DX: E86.0 Dehydration (principal); I12.9 Hypertensive chronic kidney disease with stage 1 through stage 4 chronic kidney disease, or unspecified chronic kidney disease; J44.9 Chronic obstructive pulmonary disease, unspecified; E11.22 Type 2 diabetes mellitus with diabetic chronic kidney disease; E11.21 Type 2 diabetes mellitus with diabetic nephropathy; N18.4 Chronic kidney disease, stage 4 (severe); N25.81 Secondary hyperparathyroidism of renal origin; E83.42 Hypomagnesemia; Z85.038 Personal history of other malignant neoplasm of large intestine; Z85.43 Personal history of malignant neoplasm of ovary; Z85.118 Personal history of other malignant neoplasm of bronchus and lung; Z87.891 Personal history of nicotine dependence; Z93.2 Ileostomy status; Z79.899 Other long term (current) drug therapy; Z88.1 Allergy status to other antibiotic agents; Z95.828 Presence of other vascular implants and grafts
CPT/HCPCS: 99211; C1751

== ENCOUNTER 2020-11-25 11:45 | Day surgery (SDC) | payer MEDICARE ==
[~2020-11-25] VITALS: Ht 169 cm; Wt 49.9 kg
[2020-11-25] MEDS ORDERED: CEPH250A PO (12:19)
--- NOTE | 2020-11-25 12:28 | NUR ---
PATIENT INTO SDS VIA W/C. ABLE TO AMBULATE WITH ASSISTANCE TO BED. History, Chart, Medications and Allergies reviewed before start of procedure.Patient confirms NPO status and agrees with scheduled surgery.PATIENT HAD PICC LINE P[LACED FOR USE PROIR TO ARRIVAL TO UNIT.
--- NOTE | 2020-11-25 13:04 | NUR ---
RECIEVED PATIENT AND REPORTS FROM RN AND DR BINGHAM AND DR FLORENCE. PATIENT SLEEPING BUT DOES OPEN EYES BRIEFLY WHEN TALKED TOO.
--- NOTE | 2020-11-25 13:05 | NUR ---
VSS DRESSING CLEAN DRY INTACT
--- NOTE | 2020-11-25 14:10 | NUR ---
D/C INST GIVEN TO PT AND DAUGHTER, DENIES QUESTIONS. POWER GLIDE IN PLACE POST PROCEDURE.
== END 2020-11-25 22:47 | disposition home or self-care (01) ==
LOC: ORSCMMR 11:45 → ORD 11:45 → ORSCMMR 11:49 → ORD 22:47
PROVIDERS: Surgery
PROC: 0JPT3WZ Removal of Totally Implantable Vascular Access Device from Trunk Subcutaneous Tissue and Fascia, Percutaneous Approach (ICD-10-PCS; principal; 2020-11-25 12:45)
DX: T82.7XXA Infection and inflammatory reaction due to other cardiac and vascular devices, implants and grafts, initial encounter (principal); Z01.812 Encounter for preprocedural laboratory examination; Z20.822 Contact with and (suspected) exposure to COVID-19; E86.0 Dehydration; I10 Essential (primary) hypertension; Z93.2 Ileostomy status; Z87.891 Personal history of nicotine dependence; I12.9 Hypertensive chronic kidney disease with stage 1 through stage 4 chronic kidney disease, or unspecified chronic kidney disease; J44.9 Chronic obstructive pulmonary disease, unspecified; E11.22 Type 2 diabetes mellitus with diabetic chronic kidney disease; E11.21 Type 2 diabetes mellitus with diabetic nephropathy; N18.4 Chronic kidney disease, stage 4 (severe); N25.81 Secondary hyperparathyroidism of renal origin; E83.42 Hypomagnesemia; Z85.038 Personal history of other malignant neoplasm of large intestine; Z85.43 Personal history of malignant neoplasm of ovary; Z85.118 Personal history of other malignant neoplasm of bronchus and lung; Z79.899 Other long term (current) drug therapy; Z88.1 Allergy status to other antibiotic agents; Z95.828 Presence of other vascular implants and grafts
CPT/HCPCS: 0241U; 87070; 87077; 87186; 99211; C1751; J2250; J2704; J3010; J7120

== ENCOUNTER 2020-12-07 11:36 | Day surgery (SDC) | payer MEDICARE ==
[~2020-12-07 11:36] MED LIST changes: +CEPH250A PO
== END 2020-12-07 16:55 | disposition home or self-care (01) ==
LOC: ATC 11:36
DX: K94.19 Other complications of enterostomy (principal); E86.0 Dehydration; F32.9 Major depressive disorder, single episode, unspecified; Z85.038 Personal history of other malignant neoplasm of large intestine; Z88.1 Allergy status to other antibiotic agents; Z87.891 Personal history of nicotine dependence; Z90.711 Acquired absence of uterus with remaining cervical stump; Z85.841 Personal history of malignant neoplasm of brain
CPT/HCPCS: 36569; 71045; C1751

== ENCOUNTER 2021-01-22 20:41 | Inpatient (IN) | payer MEDICARE ==
[~2021-01-22] VITALS: Ht 170.2 cm; Wt 51.0 kg
[2021-01-22 21:17] LABS: BASOPHILS ABSOLUTE AUTO 0.01 K/mm3 (0.00-0.23); BASOPHILS PERCENT AUTO 0 % (0-2); EOSINOPHILS ABSOLUTE AUTO 0.02 K/mm3 (0.00-0.68); EOSINOPHILS PERCENT AUTO 0 % (0-6); Hematocrit 38.3 % (33.0-51.0); Hemoglobin 11.9 g/dL (11.5-16.0); IMMATURE GRAN ABSOLUTE AUTO 0.03 K/mm3 (0.00-0.10); IMMATURE GRAN PERCENT AUTO 1 % (0-1); LYMPHOCYTES ABSOLUTE AUTO 0.68 K/mm3 (0.84-5.20); LYMPHOCYTES PERCENT AUTO 11 % (21-46); MONOCYTES ABSOLUTE AUTO 0.42 K/mm3 (0.16-1.47); MONOCYTES PERCENT AUTO 7 % (4-13); Mean Corpuscular HGB 29.5 pg (26.0-34.0); Mean Corpuscular HGB Conc 31.1 g/dL (31.5-36.5); Mean Corpuscular Volume 95 fL (80-100); Mean Platelet Volume 10.4 fL (9.1-12.4); NEUTROPHILS ABSOLUTE AUTO 5.22 K/mm3 (1.96-9.15); NEUTROPHILS PERCENT AUTO 82 % (41-73); Platelet Count 130 K/mm3 (150-400); RDW Coefficient Variation 17.8 % (11.7-14.2); RDW Standard Deviation 62.2 fL (35.1-46.3); Red Blood Cell Count 4.04 M/mm3 (3.80-5.20); White Blood Cell Count 6.38 K/mm3 (4.00-11.30)
[2021-01-22 21:36] LABS: Albumin, Blood 2.8 g/dL (3.4-5.0); Bilirubin, Total 0.6 mg/dL (0.1-1.0); Bun/Creatinine Ratio 13.5 (12.0-20.0); Calcium, Blood 7.6 mg/dL (8.5-10.1); Creatinine, Blood 2.07 mg/dL (0.40-1.00); Globulin, Blood 2.8 g/dL (2.2-4.0); Potassium, Blood 4.7 mmol/L (3.5-5.5); Total Protein, Blood 5.6 g/dL (6.4-8.2)
[2021-01-22 23:28] LABS: Source, Urine Urostomy Bag
[2021-01-22 23:33] LABS: Appearance, Urine Turbid (Clear); Bilirubin, Urine Neg (Neg); Blood, Urine 4+ (Neg); Color, Urine Yellow (P-Yellow); Glucose Qualitative, Urine Neg (Neg); Ketones, Urine Neg (Neg); Leukocyte Esterase, Urine 3+ (Neg); Nitrite, Urine Pos (Neg); Protein, Urine 4+ (Neg); Urobilinogen, Urine NORM (Normal)
[2021-01-22 23:39] LABS: Bacteria Many /hpf; Red Blood Cells, Urine 0-2 /hpf (0-2); Squamous Epithelial Cells Not Seen /hpf (Few); White Blood Cells, Urine TNTC /hpf (0-5)
[2021-01-23 00:08] LABS: Influenza A, PCR NEGATIVE (NEGATIVE); Influenza B, PCR NEGATIVE (NEGATIVE); Resp Syncytial Virus, PCR NEGATIVE (NEGATIVE); SARS-Cov-2 (COVID-19) PCR, MMC NEGATIVE (NEGATIVE)
[2021-01-23 05:30] LABS: Bun/Creatinine Ratio 13.9 (12.0-20.0); Calcium, Blood 8.4 mg/dL (8.5-10.1); Creatinine, Blood 2.09 mg/dL (0.40-1.00); Potassium, Blood 4.7 mmol/L (3.5-5.5)
--- NOTE | 2021-01-23 06:32 | NUR ---
PT ADMIT THIS SHIFT TO ROOM 329, OSTOMY AND UROSTOMY PRESENT. PT HAS A POWERGLIDE TO GRACIE PRESENT ON ADMIT THAT SHE SAYS SHE GIVES HERSELF SALINE BOLUS 2X A DAY AT HOME. NS NOW RUNNING THROUGH RIGHT FA IV ACCESS. [place] GIVEN THIS SHIFT FOR OTT AND BACK PAIN, PT WAS FEBRILE IN ED. MARI CONSULT FOR PYELONEPHRITIS, PT HAS HX OF CANCER. TELE MONITOR IN SINUS RYTHM, PT IS VERY WEAK, BED ALARM ON FOR SAFETY.
--- NOTE | 2021-01-23 17:48 | NUR ---
ADMIT: 01/23/21 DISCHARGE: DX: Acute Pyelonephritis CC:cpeabody ADMIT: 02/17/20 DISCHARGE: 02/20/20 DX: SEPSIS ADMIT: 05/04/19 DISCHARGE:05/05/19 DX: LEFT IATRAGENIC PNEUMOTHORAX /DEHYDRATION JENNIFER CALL: Call patient at home for jennifer, RESIDENCE: Home. karo lives with her CAREGIVER: Anayeli Caro, Child, Alex Hebert, Child, DX: Acute nontraumatic kidney injury, CKD-stage 4, HTN, SBO, see list DME: none CCM: no record HOME HEALTH: [facility] SUMMARY: Admit: 01/23/21 01/23/21 Met with Rebekah, discussed home assessment, drives locally but not out of town, granddaughter lives with her but does not drive. Needs assistance with house keeping, does not have the extra money to pay for it. Does not feel that she needs assistance with caregiving at this time.Will follow her for discharge planning. Dr Grace eta discharge Saturday. cpPatient has a picc line, home health is visiting 1 x per week for wound care. Patient presents secondary to chills with fever 104 today. She took [place] roughly 7 hours prior to ED arrival but no antipyretic since. She is here afebrile. Nontoxic appearing. Minimal pulmonary symptoms and no other systemic symptoms. Patient has urostomy and urinalysis has been ordered and currently pending. CBC shows normal white counts. Rapid COVID screen is negative. Chest x-ray unremarkable. She has no fever 7 hours after having minimal acetaminophen dosing in her [place], is no clear source of fever that she may have had. She does have a PICC line in left upper extremity which can be a source, as well. There is no cellulitis near the insertion site upon my review.Case was signed out to Dr. John will follow-up on remaining studies and disposition accordingly.
--- NOTE | 2021-01-23 18:02 | NUR ---
01/23/21 Dr Morley s/w daughter Ewa over the weekend about guardianship. Asked me to call Ewa today. I called Ewa, . our conversation ended with her decision to allow a public Guardian to pursue [employer] Guardianship. Ewa feels she lives to far away to be a effective guardian. 4 pm I received a phone call from [place]oz, She stated that she was contacting the [employer] because we are trying to take her property away from her.
--- NOTE | 2021-01-23 19:06 | NUR ---
SHIFT SUMMARY NO ACUTE CHANGES THIS SHIFT. PATIENT IS ALERT, ORIENTED AND ABLE TO MAKE HER NEEDS KNOWN. SHE IS INDEPENDENT IN HER ROOM AND SELF MANAGES HER COLOSTOMY AND UROSTOMY. IV FLUIDS RUNNING IN PIV PER ORDERS. PER , PATIENT TO DC AFTER CULTURES ARE RESULTED. SHE HAS A PICC LINE IN FOR HOME SALINE INFUSIONS. WILL CONT TO MONITOR AND REPORT TO NOC RN.
--- NOTE | 2021-01-24 04:56 | NUR ---
DOCUMENTATION MANAGER SUMMARY NO ACUTE CHANGES THIS SHIFT. PT AAOX4 AND INDEPENDENT IN ROOM. DENIES FLANK PAIN OR DYSURIA. MEDICATED FOR CHRONIC PAIN X1 WITH NORCO. PT HAS SLEPT OFF/ON THROUGH THE SHIFT WITH NO COMPLAINTS. CONTINUES IV NS @ 125 ML/HR. VSS, WILL CONTINUE TO MONITOR.
[2021-01-24 05:30] LABS: Hematocrit 40.7 % (33.0-51.0); Hemoglobin 12.5 g/dL (11.5-16.0)
[2021-01-24 05:45] LABS: Albumin, Blood 3.1 g/dL (3.4-5.0); Anion Gap 9 mmol/L (6-16); Blood Urea Nitrogen 28 mg/dL (8-24); Bun/Creatinine Ratio 14.5 (12.0-20.0); CO2, Blood 16 mmol/L (21-32); Calcium, Blood 8.7 mg/dL (8.5-10.1); Chloride, Blood 116 mmol/L (98-108); Creatinine, Blood 1.93 mg/dL (0.40-1.00); Glomerular Filtration Rate 27 (60-); Glucose, Blood 85 mg/dL (70-99); Magnesium, Blood 1.5 mg/dL (1.6-2.4); Phosphorus, Blood 3.6 mg/dL (2.5-4.9); Potassium, Blood 4.4 mmol/L (3.5-5.5); Sodium, Blood 141 mmol/L (136-145)
[2021-01-24] MEDS ORDERED: CEPH500 PO (13:11)
--- NOTE | 2021-01-24 13:35 | NUR ---
DISCHARGE SUMMARY PT AxOx4. COOPERATIVE WITH CARE. PT DISCHARGING TODAY HOME WITH DAUGHTER. DISCHARGE INSTRUCTIONS DISCUSSED, INCLUDING DC MEDS AND FOLLOW UP APPOINTMENTS/HOME HEALTH. PT VERBALIZES UNDERSTANDING. IV ABX INFUSED PRIOR TO DC. PICC LINE LEFT IN FOR ONGOING OUTPATIENT TREATMENTS. VITALS REVIEWED. MEDICATED FOR PAIN PER EMAR. DENIES ANY FURTHER NEEDS/QUESTIONS AT THIS TIME. PT SAFELY ESCORTED OUT VIA WC WITH DRIVER SUPERVISOR.
--- NOTE | 2021-01-24 17:31 | NUR ---
ADMIT: 01/23/21 DISCHARGE: 01/24/21 DX: Acute Pyelonephritis CC:cpeabody ADMIT: 02/17/20 DISCHARGE: 02/20/20 DX: SEPSIS ADMIT: 05/04/19 DISCHARGE:05/05/19 DX: LEFT IATRAGENIC PNEUMOTHORAX /DEHYDRATION JENNIFER CALL: Call patient at home for jennifer, 1 week follow up jennifer RESIDENCE: Home. Granddaughter lives with her CAREGIVER: Anayeli Caro, Child, Alex Hebert, Child, DX: Acute no traumatic kidney injury, CKD-stage 4, HTN, SBO, see list DME: ostomy CCM: no record HOME HEALTH: [facility]- resume home health with [facility] 01/24/21. s/w Sandie. SUMMARY: Admit: 01/23/21 01/24/21 Discharged home before I could discuss jennifer in person. s/w Nurse, she told patient we would be calling Sat or Th to follow up on her condition and schedule 1 week follow up appointment. No care needs at discharge. cp
== END 2021-01-24 13:35 | disposition home health service (06) | DRG 699 ==
LOC: ER 20:41 → MEDS 01-23 01:55
PROVIDERS: Emergency Medicine; Internal Medicine Nephrology; ADMIT Internal Medicine
DX: N99.521 Infection of incontinent external stoma of urinary tract (principal); E87.2 Acidosis; N25.81 Secondary hyperparathyroidism of renal origin; N17.9 Acute kidney failure, unspecified; N13.6 Pyonephrosis; N18.30 Chronic kidney disease, stage 3 unspecified; J44.9 Chronic obstructive pulmonary disease, unspecified; Z20.822 Contact with and (suspected) exposure to COVID-19; B96.1 Klebsiella pneumoniae [K. pneumoniae] as the cause of diseases classified elsewhere; E88.09 Other disorders of plasma-protein metabolism, not elsewhere classified; E86.9 Volume depletion, unspecified; Y83.3 Surgical operation with formation of external stoma as the cause of abnormal reaction of the patient, or of later complication, without mention of misadventure at the time of the procedure; Z93.2 Ileostomy status; Z90.710 Acquired absence of both cervix and uterus; Z90.49 Acquired absence of other specified parts of digestive tract; Z90.2 Acquired absence of lung [part of]; Z85.038 Personal history of other malignant neoplasm of large intestine; Z88.1 Allergy status to other antibiotic agents; Z85.43 Personal history of malignant neoplasm of ovary; Z85.118 Personal history of other malignant neoplasm of bronchus and lung; Z92.21 Personal history of antineoplastic chemotherapy; Z90.6 Acquired absence of other parts of urinary tract; Z95.828 Presence of other vascular implants and grafts; Z87.891 Personal history of nicotine dependence; Z98.890 Other specified postprocedural states
CPT/HCPCS: 0241U; 36415; 71046; 74176; 76770; 80048; 80053; 80069; 81001; 83605; 83735; 85014; 85018; 85025; 87040; 87077; 87086; 87186; 94760; 96365; 99285-25; A9270; J0696; J7030

== ENCOUNTER → 2021-02-15 | Outpatient (CLI) | payer MEDICARE | END | disposition home or self-care (01) | LOC: LAB HH 18:22 | DX: N18.4 Chronic kidney disease, stage 4 (severe) (principal); E86.0 Dehydration; Z93.2 Ileostomy status | CPT/HCPCS: 83735 ==

== ENCOUNTER 2021-03-21 08:07 | Day surgery (SDC) | payer MEDICARE ==
[~2021-03-21] VITALS: Ht 170.2 cm; Wt 53.0 kg
[2021-03-21] MEDS ORDERED: ALUMINUM H320 MG/5 M PO (08:48)
[2021-03-21] MEDS ORDERED: CALC.25 PO (08:49)
[2021-03-21] MEDS ORDERED: Norco 10-325 T1 EACH PO (08:54)
[2021-03-21] MEDS ORDERED: Flagyl250 MG PO (08:55)
[2021-03-21] MEDS ORDERED: ONDA4 PO (08:56)
[2021-03-21] MEDS ORDERED: ZOLOFT100 M5 PO (08:58)
[2021-03-21] MEDS ORDERED: PANT40 PO (08:58)
--- NOTE | 2021-03-21 12:58 | NUR ---
DISCHARGE PT AMBULATED TO RESTROOM AND DRESSED SELF WITH NO COMPLICATIONS. PT DENIES ANY PAIN AT MEDIPORT SITE. NO SWELLING, OOZING OR HEMATOMA NOTED. IV WAS NOT PLACED DUE TO PT HAVING A PICC LINE ALREADY IN PLACE. PICC LINE FLUSHED WELL AND CAP PLACED HUB. PT STATES HER UNDERSTANDING OF SITE CARE AND DISCHARGE INSTRUCTIONS AND DENIES ANY QUESTIONS OR CONCERNS. PT TAKEN TO EXIT VIA WHEELCHAIR WHERE HER SON IN LAW AWAITS.
== END 2021-03-21 13:00 | disposition home or self-care (01) ==
LOC: MHTC 08:07
DX: K91.2 Postsurgical malabsorption, not elsewhere classified (principal); E63.9 Nutritional deficiency, unspecified; I12.9 Hypertensive chronic kidney disease with stage 1 through stage 4 chronic kidney disease, or unspecified chronic kidney disease; N18.9 Chronic kidney disease, unspecified; Z85.038 Personal history of other malignant neoplasm of large intestine; Z88.1 Allergy status to other antibiotic agents; Z87.891 Personal history of nicotine dependence; Z86.011 Personal history of benign neoplasm of the brain; Z90.710 Acquired absence of both cervix and uterus; Z85.43 Personal history of malignant neoplasm of ovary; Z90.49 Acquired absence of other specified parts of digestive tract
CPT/HCPCS: 36561; 76937; 99152; 99153; C1788; C1894; J0690; J1642; J1644; J2250; J3010; J7040

== ENCOUNTER → 2021-05-04 | Outpatient (CLI) | payer MEDICARE ==
[~2021-05-04] MED LIST changes: +ALUMINUM H320 MG/5 M PO; +Flagyl250 MG PO; +PANT40 PO; +ZOLOFT100 M5 PO
[2021-05-04 16:43] LABS: Albumin, Blood 3.3 g/dL (3.4-5.0); Anion Gap 6 mmol/L (6-16); Blood Urea Nitrogen 27 mg/dL (8-24); Bun/Creatinine Ratio 14.2 (12.0-20.0); CO2, Blood 20 mmol/L (21-32); Calcium, Blood 8.3 mg/dL (8.5-10.1); Chloride, Blood 114 mmol/L (98-108); Glomerular Filtration Rate 27 (60-); Glucose, Blood 99 mg/dL (70-99); Potassium, Blood 5.2 mmol/L (3.5-5.5); Sodium, Blood 140 mmol/L (136-145)
== END | disposition home or self-care (01) ==
LOC: LAB SHORT 13:20 → LAB 13:20
PROVIDERS: Internal Medicine Nephrology
DX: N18.4 Chronic kidney disease, stage 4 (severe) (principal); D63.1 Anemia in chronic kidney disease
CPT/HCPCS: 80069; 85018

== ENCOUNTER → 2021-05-11 | Outpatient (CLI) | payer MEDICARE | END | disposition home or self-care (01) | LOC: LAB 18:32 → LAB SHORT 18:32 | DX: I12.9 Hypertensive chronic kidney disease with stage 1 through stage 4 chronic kidney disease, or unspecified chronic kidney disease (principal); N18.9 Chronic kidney disease, unspecified; E87.5 Hyperkalemia | CPT/HCPCS: 84132 ==

== ENCOUNTER → 2021-06-28 | Outpatient (CLI) | payer MEDICARE ==
[2021-06-28 15:44] LABS: Magnesium, Blood 2.1 mg/dL (1.6-2.4)
[2021-06-28 16:05] LABS: Albumin, Blood 3.2 g/dL (3.4-5.0); Anion Gap 5 mmol/L (6-16); Blood Urea Nitrogen 34 mg/dL (8-24); Bun/Creatinine Ratio 18.1 (12.0-20.0); CO2, Blood 18 mmol/L (21-32); Calcium, Blood 8.3 mg/dL (8.5-10.1); Chloride, Blood 117 mmol/L (98-108); Creatinine, Blood 1.88 mg/dL (0.40-1.00); Glomerular Filtration Rate 26 (60-); Glucose, Blood 140 mg/dL (70-99); Phosphorus, Blood 3.9 mg/dL (2.5-4.9); Sodium, Blood 140 mmol/L (136-145)
== END | disposition home or self-care (01) ==
LOC: LAB SHORT 13:25 → LAB HH 13:25
PROVIDERS: Internal Medicine Nephrology
DX: N18.4 Chronic kidney disease, stage 4 (severe) (principal); D63.1 Anemia in chronic kidney disease
CPT/HCPCS: 80069; 83735; 85018

== ENCOUNTER → 2021-07-31 | Outpatient (CLI) | payer MEDICARE | END | disposition home or self-care (01) | LOC: LAB SHORT 11:20 | DX: Z48.816 Encounter for surgical aftercare following surgery on the genitourinary system (principal); Z93.6 Other artificial openings of urinary tract status | CPT/HCPCS: 87077; 87086; 87186 ==

== ENCOUNTER → 2021-08-30 | Outpatient (CLI) | payer MEDICARE ==
[2021-08-30 18:19] LABS: Albumin, Blood 2.3 g/dL (3.4-5.0); Anion Gap 8 mmol/L (6-16); Blood Urea Nitrogen 24 mg/dL (8-24); Bun/Creatinine Ratio 13.3 (12.0-20.0); CO2, Blood 13 mmol/L (21-32); Calcium, Blood 6.9 mg/dL (8.5-10.1); Chloride, Blood 123 mmol/L (98-108); Creatinine, Blood 1.81 mg/dL (0.40-1.00); Glomerular Filtration Rate 27 (60-); Glucose, Blood 60 mg/dL (70-99); Phosphorus, Blood 3.4 mg/dL (2.5-4.9); Potassium, Blood 3.5 mmol/L (3.5-5.5); Sodium, Blood 144 mmol/L (136-145)
== END | disposition home or self-care (01) ==
LOC: EDSTATUS 08-18 10:45 → LAB FUT 08-18 10:45 → LAB 11:55 → LAB SHORT 11:55
PROVIDERS: Internal Medicine Nephrology
DX: N18.4 Chronic kidney disease, stage 4 (severe) (principal); D63.1 Anemia in chronic kidney disease
CPT/HCPCS: 80069; 85018

== ENCOUNTER → 2021-12-13 | Outpatient (CLI) | payer MEDICARE ==
[2021-12-13 19:59] LABS: BASOPHILS ABSOLUTE AUTO 0.03 K/mm3 (0.00-0.23); BASOPHILS PERCENT AUTO 0 % (0-2); EOSINOPHILS ABSOLUTE AUTO 0.04 K/mm3 (0.00-0.68); EOSINOPHILS PERCENT AUTO 0 % (0-6); Hematocrit 36.2 % (33.0-51.0); Hemoglobin 11.1 g/dL (11.5-16.0); IMMATURE GRAN ABSOLUTE AUTO 0.07 K/mm3 (0.00-0.10); IMMATURE GRAN PERCENT AUTO 1 % (0-1); LYMPHOCYTES ABSOLUTE AUTO 1.07 K/mm3 (0.84-5.20); LYMPHOCYTES PERCENT AUTO 8 % (21-46); MONOCYTES ABSOLUTE AUTO 0.52 K/mm3 (0.16-1.47); MONOCYTES PERCENT AUTO 4 % (4-13); Mean Corpuscular HGB 27.8 pg (26.0-34.0); Mean Corpuscular HGB Conc 30.7 g/dL (31.5-36.5); Mean Corpuscular Volume 91 fL (80-100); Mean Platelet Volume 10.7 fL (9.1-12.4); NEUTROPHILS ABSOLUTE AUTO 11.07 K/mm3 (1.96-9.15); NEUTROPHILS PERCENT AUTO 87 % (41-73); Platelet Count 192 K/mm3 (150-400); RDW Coefficient Variation 17.9 % (11.7-14.2)
[2021-12-14 00:10] LABS: Albumin, Blood 3.2 g/dL (3.4-5.0); Anion Gap 3 mmol/L (6-16); Blood Urea Nitrogen 35 mg/dL (8-24); Bun/Creatinine Ratio 15.2 (12.0-20.0); CO2, Blood 19 mmol/L (21-32); Calcium, Blood 8.3 mg/dL (8.5-10.1); Chloride, Blood 115 mmol/L (98-108); Glomerular Filtration Rate 20 (60-); Glucose, Blood 162 mg/dL (70-99); Phosphorus, Blood 3.5 mg/dL (2.5-4.9); Potassium, Blood 4.9 mmol/L (3.5-5.5); Sodium, Blood 137 mmol/L (136-145)
[2021-12-14 00:33] LABS: Alanine Aminotransfer (ALT/SGP 27 U/L (12-78); Albumin, Blood 3.1 g/dL (3.4-5.0); Albumin/Globulin Ratio 0.9 (0.8-1.8); Alk Phos 122 U/L (50-136); Anion Gap 5 mmol/L (6-16); Aspartate Aminotrans (AST/SGOT 16 U/L (12-37); Bilirubin, Total 0.4 mg/dL (0.1-1.0); Blood Urea Nitrogen 36 mg/dL (8-24); Bun/Creatinine Ratio 15.7 (12.0-20.0); CO2, Blood 19 mmol/L (21-32); Calcium, Blood 8.4 mg/dL (8.5-10.1); Chloride, Blood 116 mmol/L (98-108); Cholesterol 102 mg/dL (50-200); Creatinine, Blood 2.29 mg/dL (0.40-1.00); Globulin, Blood 3.5 g/dL (2.2-4.0); Glomerular Filtration Rate 20 (60-); Glucose, Blood 156 mg/dL (70-99); HDL Cholesterol 52 mg/dL (>39); LDL/HDL RATIO 0.6; Low Density Lipoprotein Chol 33 mg/dL (0-110); Sodium, Blood 140 mmol/L (136-145); Total Protein, Blood 6.6 g/dL (6.4-8.2); Triglycerides 84 mg/dL (30-160); Very Low Density Lipoprot Chol 16 mg/dL (6-32)
== END | disposition home or self-care (01) ==
LOC: LAB HH 17:35 → LAB SHORT 17:35
PROVIDERS: Internal Medicine Nephrology; Nurse Practitioner Family
DX: I12.9 Hypertensive chronic kidney disease with stage 1 through stage 4 chronic kidney disease, or unspecified chronic kidney disease (principal); N18.4 Chronic kidney disease, stage 4 (severe); D63.1 Anemia in chronic kidney disease; E83.42 Hypomagnesemia
CPT/HCPCS: 80053; 80061; 80069; 83735; 84100; 85018; 85025

== ENCOUNTER → 2021-12-27 | Outpatient (CLI) | payer MEDICARE | END | disposition home or self-care (01) | LOC: LAB SHORT 09:23 → LAB 09:23 | DX: N39.0 Urinary tract infection, site not specified (principal) | CPT/HCPCS: 87077; 87086; 87186 ==

== ENCOUNTER → 2022-03-21 | Outpatient (CLI) | payer MEDICARE ==
[2022-03-21 18:04] LABS: Ferritin, Serum 119 ng/mL (8-252); Iron Serum 32 ug/dL (50-170); Percent Saturation 10.2 % (15.0-50.0); Total Iron Binding Capacity 315 ug/dL (250-450); Uric Acid, Blood 7.5 mg/dL (2.6-6.0)
[2022-03-21 18:12] LABS: Albumin, Blood 3.3 g/dL (3.4-5.0); Anion Gap 6 mmol/L (6-16); Blood Urea Nitrogen 28 mg/dL (8-24); Bun/Creatinine Ratio 14.4 (12.0-20.0); CO2, Blood 20 mmol/L (21-32); Calcium, Blood 8.3 mg/dL (8.5-10.1); Chloride, Blood 116 mmol/L (98-108); Creatinine, Blood 1.95 mg/dL (0.40-1.00); Glomerular Filtration Rate 25 (60-); Glucose, Blood 98 mg/dL (70-99); Phosphorus, Blood 4.6 mg/dL (2.5-4.9); Potassium, Blood 5.3 mmol/L (3.5-5.5); Sodium, Blood 142 mmol/L (136-145)
== END | disposition home or self-care (01) ==
LOC: LAB HH 13:30
PROVIDERS: Internal Medicine Nephrology
DX: E11.21 Type 2 diabetes mellitus with diabetic nephropathy (principal); E11.22 Type 2 diabetes mellitus with diabetic chronic kidney disease; N18.30 Chronic kidney disease, stage 3 unspecified; D63.1 Anemia in chronic kidney disease; E78.00 Pure hypercholesterolemia, unspecified; E55.9 Vitamin D deficiency, unspecified
CPT/HCPCS: 80069; 82728; 83036; 83540; 83550; 84443; 84550; 85018

== ENCOUNTER → 2022-04-11 | Outpatient (CLI) | payer MEDICARE | END | disposition home or self-care (01) | LOC: LAB SHORT 10:40 | DX: E87.5 Hyperkalemia (principal) | CPT/HCPCS: 84132 ==

== ENCOUNTER → 2022-07-04 | Outpatient (CLI) | payer MEDICARE ==
[2022-07-04 16:23] LABS: Albumin, Blood 3.2 g/dL (3.4-5.0); Anion Gap 9 mmol/L (6-16); Blood Urea Nitrogen 33 mg/dL (8-24); Bun/Creatinine Ratio 18.3 (12.0-20.0); CO2, Blood 18 mmol/L (21-32); Calcium, Blood 8.4 mg/dL (8.5-10.1); Chloride, Blood 114 mmol/L (98-108); Glomerular Filtration Rate 28 (60-); Glucose, Blood 53 mg/dL (70-99); Phosphorus, Blood 3.7 mg/dL (2.5-4.9); Potassium, Blood 4.8 mmol/L (3.5-5.5); Sodium, Blood 141 mmol/L (136-145)
== END | disposition home or self-care (01) ==
LOC: LAB SHORT 09:15 → LAB 09:15
PROVIDERS: Internal Medicine Nephrology
DX: N18.4 Chronic kidney disease, stage 4 (severe) (principal); D63.1 Anemia in chronic kidney disease
CPT/HCPCS: 80069; 85018

== ENCOUNTER → 2022-07-11 | Outpatient (CLI) | payer MEDICARE ==
[2022-07-11 13:29] LABS: Source, Urine Clean Catch
[2022-07-11 15:46] LABS: Appearance, Urine Cloudy (Clear); Bilirubin, Urine Neg (Neg); Blood, Urine 5+ (Neg); Color, Urine Yellow (P-Yellow); Glucose Qualitative, Urine Neg (Neg); Ketones, Urine Neg (Neg); Leukocyte Esterase, Urine 3+ (Neg); Nitrite, Urine Pos (Neg); Protein, Urine 3+ (Neg); Urobilinogen, Urine NORM (Normal)
[2022-07-11 16:10] LABS: Bacteria Many /hpf; Red Blood Cells, Urine TNTC /hpf (0-2); Squamous Epithelial Cells Not Seen /hpf (Few); White Blood Cells, Urine TNTC /hpf (0-5)
== END | disposition home or self-care (01) ==
LOC: LAB SHORT 13:24 → LAB HH 13:24
PROVIDERS: Nurse Practitioner Family
DX: N39.0 Urinary tract infection, site not specified (principal)
CPT/HCPCS: 81001; 87077; 87086; 87186

== ENCOUNTER → 2022-08-08 | Outpatient (CLI) | payer MEDICARE ==
[~2022-08-08] MED LIST changes: +Acetaminophen650 M1 PO; +CLIN150 PO; +MAGNESIUM250 MG PO; +PREG50 PO
[2022-08-08 18:50] LABS: Hematocrit 32.4 % (33.0-51.0); Hemoglobin 10.3 g/dL (11.5-16.0)
[2022-08-08 19:14] LABS: Albumin, Blood 3.5 g/dL (3.4-5.0); Albumin/Globulin Ratio 1.1 (0.8-1.8); Bilirubin, Total 0.2 mg/dL (0.1-1.0); Bun/Creatinine Ratio 18.4 (12.0-20.0); Calcium, Blood 8.7 mg/dL (8.5-10.1); Creatinine, Blood 1.96 mg/dL (0.40-1.00); Globulin, Blood 3.2 g/dL (2.2-4.0); Phosphorus, Blood 3.7 mg/dL (2.5-4.9); Potassium, Blood 4.3 mmol/L (3.5-5.5); Total Protein, Blood 6.7 g/dL (6.4-8.2)
== END | disposition home or self-care (01) ==
LOC: LAB HH 13:30
PROVIDERS: Internal Medicine Nephrology
DX: N17.9 Acute kidney failure, unspecified (principal); N18.9 Chronic kidney disease, unspecified
CPT/HCPCS: 80053; 84100; 85014; 85018

== ENCOUNTER → 2022-08-22 | Outpatient (CLI) | payer MEDICARE ==
[2022-08-23 18:52] LABS: BASOPHILS ABSOLUTE AUTO 0.04 K/mm3 (0.00-0.23); BASOPHILS PERCENT AUTO 1 % (0-2); EOSINOPHILS ABSOLUTE AUTO 0.11 K/mm3 (0.00-0.68); EOSINOPHILS PERCENT AUTO 2 % (0-6); Hematocrit 35.9 % (33.0-51.0); Hemoglobin 11.5 g/dL (11.5-16.0); IMMATURE GRAN ABSOLUTE AUTO 0.03 K/mm3 (0.00-0.10); IMMATURE GRAN PERCENT AUTO 0 % (0-1); LYMPHOCYTES PERCENT AUTO 30 % (21-46); MONOCYTES ABSOLUTE AUTO 0.35 K/mm3 (0.16-1.47); MONOCYTES PERCENT AUTO 5 % (4-13); Mean Corpuscular HGB 29.8 pg (26.0-34.0); Mean Corpuscular Volume 93 fL (80-100); NEUTROPHILS PERCENT AUTO 63 % (41-73); RDW Coefficient Variation 14.4 % (11.7-14.2); RDW Standard Deviation 49.7 fL (35.1-46.3); Red Blood Cell Count 3.86 M/mm3 (3.80-5.20); White Blood Cell Count 6.73 K/mm3 (4.00-11.30)
[2022-08-23 18:54] LABS: Bun/Creatinine Ratio 17.3 (12.0-20.0); Calcium, Blood 8.9 mg/dL (8.5-10.1); Creatinine, Blood 2.08 mg/dL (0.40-1.00); Potassium, Blood 4.5 mmol/L (3.5-5.5)
[2022-08-23 18:58] LABS: International Normalized Ratio 0.96; Prothrombin Time Results 10.1 Sec (9.7-11.5)
[2022-08-23 19:13] LABS: Platelet Count 181 K/mm3 (150-400)
== END ==
LOC: EDSTATUS 09:38 → LAB HH 12:05
PROVIDERS: Radiology Diagnostic Radiology
DX: Z01.812 Encounter for preprocedural laboratory examination (principal)
CPT/HCPCS: 80048; 85025; 85610; 85730

== ENCOUNTER 2022-08-28 10:02 | Day surgery (SDC) | payer MEDICARE ==
[~2022-08-28] VITALS: Ht 170.2 cm; Wt 56.0 kg
--- NOTE | 2022-08-28 18:11 | NUR ---
PT GIVEN DC INSTRUCTIONS AND VERBALIZED UNDERSTANDING. PT CHANGED INTO CLOTHES AND TAKEN TO PARKING LOT VIA WC. DAUGHTER TO TAKE PT HOME.
== END 2022-08-28 18:15 | disposition home or self-care (01) ==
LOC: MHTC 10:02
DX: E63.9 Nutritional deficiency, unspecified (principal); C78.00 Secondary malignant neoplasm of unspecified lung; A31.9 Mycobacterial infection, unspecified; I12.9 Hypertensive chronic kidney disease with stage 1 through stage 4 chronic kidney disease, or unspecified chronic kidney disease; N18.9 Chronic kidney disease, unspecified; M19.90 Unspecified osteoarthritis, unspecified site; Z87.891 Personal history of nicotine dependence; Z88.1 Allergy status to other antibiotic agents
CPT/HCPCS: 36561; 76937; 77001; 99152; 99153; C1769; C1788; J0690; J1642; J1644; J2250; J3010; J7040; Q9967

== ENCOUNTER → 2022-09-11 | Outpatient (CLI) | payer MEDICARE | LOC: LAB SHORT 11:15 → LAB 11:15 | DX: R82.90 Unspecified abnormal findings in urine (principal) | CPT/HCPCS: 87077; 87086; 87186 ==

== ENCOUNTER → 2022-10-03 | Outpatient (CLI) | payer MEDICARE ==
[2022-10-03 16:58] LABS: Albumin, Blood 3.5 g/dL (3.4-5.0); Anion Gap 7 mmol/L (6-16); Blood Urea Nitrogen 35 mg/dL (8-24); Bun/Creatinine Ratio 17.2 (12.0-20.0); CO2, Blood 20 mmol/L (21-32); Calcium, Blood 8.4 mg/dL (8.5-10.1); Chloride, Blood 116 mmol/L (98-108); Creatinine, Blood 2.04 mg/dL (0.40-1.00); Glomerular Filtration Rate 24 (60-); Glucose, Blood 141 mg/dL (70-99); Phosphorus, Blood 5.1 mg/dL (2.5-4.9); Potassium, Blood 4.2 mmol/L (3.5-5.5); Sodium, Blood 143 mmol/L (136-145)
== END ==
LOC: LAB HH 09:50
PROVIDERS: Internal Medicine Nephrology
DX: N18.30 Chronic kidney disease, stage 3 unspecified (principal); R76.9 Abnormal immunological finding in serum, unspecified; R94.5 Abnormal results of liver function studies; G60.9 Hereditary and idiopathic neuropathy, unspecified
CPT/HCPCS: 80069

== ENCOUNTER → 2022-10-26 | Outpatient (CLI) | payer MEDICARE ==
[2022-10-26 14:26] LABS: Source, Urine Clean Catch
[2022-10-26 17:50] LABS: Appearance, Urine Cloudy (Clear); Bilirubin, Urine Neg (Neg); Blood, Urine 4+ (Neg); Color, Urine Yellow (P-Yellow); Glucose Qualitative, Urine Neg (Neg); Ketones, Urine Neg (Neg); Leukocyte Esterase, Urine 3+ (Neg); Nitrite, Urine Neg (Neg); Protein, Urine 3+ (Neg); Urobilinogen, Urine NORM (Normal)
[2022-10-26 17:57] LABS: White Blood Cells, Urine TNTC /hpf (0-5)
[2022-10-26 17:58] LABS: Bacteria Many /hpf; Squamous Epithelial Cells Not Seen /hpf (Few)
== END ==
LOC: LAB SHORT 14:22 → LAB 14:22
PROVIDERS: Nurse Practitioner Family
DX: N39.0 Urinary tract infection, site not specified (principal)
CPT/HCPCS: 81001; 87077; 87086; 87186

== ENCOUNTER 2023-03-22 03:35 | Day surgery (SDC) | payer MEDICARE ==
[2023-03-22 11:29] VITALS: BP 156/89
[2023-03-22] MEDS ORDERED: SODIUM CHLORID100 ML IV (11:32)
== END 2023-03-22 11:33 | disposition home or self-care (01) ==
LOC: ATC 03:35
DX: Z45.2 Encounter for adjustment and management of vascular access device (principal); E86.0 Dehydration; I12.9 Hypertensive chronic kidney disease with stage 1 through stage 4 chronic kidney disease, or unspecified chronic kidney disease; N18.4 Chronic kidney disease, stage 4 (severe); D83.1 Common variable immunodeficiency with predominant immunoregulatory T-cell disorders; J44.9 Chronic obstructive pulmonary disease, unspecified
CPT/HCPCS: J1642

== ENCOUNTER 2023-03-29 02:24 | Day surgery (SDC) | payer MEDICARE ==
[~2023-03-29 02:24] MED LIST changes: +SODIUM CHLORID100 ML IV
[2023-03-29 08:22] VITALS: BP 108/85
== END 2023-03-29 08:29 | disposition home or self-care (01) ==
LOC: ATC 02:24
DX: Z45.2 Encounter for adjustment and management of vascular access device (principal); E86.0 Dehydration; Z95.828 Presence of other vascular implants and grafts; I12.9 Hypertensive chronic kidney disease with stage 1 through stage 4 chronic kidney disease, or unspecified chronic kidney disease; E11.22 Type 2 diabetes mellitus with diabetic chronic kidney disease; N18.4 Chronic kidney disease, stage 4 (severe); D83.1 Common variable immunodeficiency with predominant immunoregulatory T-cell disorders; J44.9 Chronic obstructive pulmonary disease, unspecified
CPT/HCPCS: 96523; J1642

== ENCOUNTER 2023-04-04 03:49 | Day surgery (SDC) | payer MEDICARE ==
[2023-04-04 08:47] VITALS: BP 146/89
== END 2023-04-04 09:05 | disposition home or self-care (01) ==
LOC: ATC 03:49
DX: Z45.2 Encounter for adjustment and management of vascular access device (principal); Z95.828 Presence of other vascular implants and grafts; I12.9 Hypertensive chronic kidney disease with stage 1 through stage 4 chronic kidney disease, or unspecified chronic kidney disease; N18.4 Chronic kidney disease, stage 4 (severe); D63.1 Anemia in chronic kidney disease; E11.22 Type 2 diabetes mellitus with diabetic chronic kidney disease; E21.3 Hyperparathyroidism, unspecified; Z88.1 Allergy status to other antibiotic agents; K21.9 Gastro-esophageal reflux disease without esophagitis; J44.9 Chronic obstructive pulmonary disease, unspecified; Z79.899 Other long term (current) drug therapy
CPT/HCPCS: 96523

== ENCOUNTER 2023-04-11 03:40 | Day surgery (SDC) | payer MEDICARE ==
[2023-04-11 08:10] VITALS: BP 170/73
== END 2023-04-11 08:19 | disposition home or self-care (01) ==
LOC: ATC 03:40
DX: Z45.2 Encounter for adjustment and management of vascular access device (principal); Z95.828 Presence of other vascular implants and grafts; E86.0 Dehydration; I12.9 Hypertensive chronic kidney disease with stage 1 through stage 4 chronic kidney disease, or unspecified chronic kidney disease; E11.22 Type 2 diabetes mellitus with diabetic chronic kidney disease; N18.4 Chronic kidney disease, stage 4 (severe); D83.1 Common variable immunodeficiency with predominant immunoregulatory T-cell disorders; J44.9 Chronic obstructive pulmonary disease, unspecified
CPT/HCPCS: 96523; J1642

== ENCOUNTER 2023-04-18 02:57 | Day surgery (SDC) | payer MEDICARE ==
[2023-04-18 09:12] VITALS: BP 136/87
== END 2023-04-18 09:16 | disposition home or self-care (01) ==
LOC: ATC 02:57
DX: Z45.2 Encounter for adjustment and management of vascular access device (principal); E86.0 Dehydration; I12.9 Hypertensive chronic kidney disease with stage 1 through stage 4 chronic kidney disease, or unspecified chronic kidney disease; E11.22 Type 2 diabetes mellitus with diabetic chronic kidney disease; N18.4 Chronic kidney disease, stage 4 (severe); D63.1 Anemia in chronic kidney disease; J44.9 Chronic obstructive pulmonary disease, unspecified; Z95.828 Presence of other vascular implants and grafts
CPT/HCPCS: 96523; J1642

== ENCOUNTER 2023-05-09 01:09 | Day surgery (SDC) | payer MEDICARE ==
[2023-05-09 10:17] VITALS: BP 109/71
== END 2023-05-09 10:17 | disposition home or self-care (01) ==
LOC: ATC 01:09
DX: Z45.2 Encounter for adjustment and management of vascular access device (principal); Z95.828 Presence of other vascular implants and grafts; E86.0 Dehydration; I12.9 Hypertensive chronic kidney disease with stage 1 through stage 4 chronic kidney disease, or unspecified chronic kidney disease; N18.4 Chronic kidney disease, stage 4 (severe); D83.1 Common variable immunodeficiency with predominant immunoregulatory T-cell disorders; J44.9 Chronic obstructive pulmonary disease, unspecified; E21.3 Hyperparathyroidism, unspecified; M10.9 Gout, unspecified; D63.1 Anemia in chronic kidney disease
CPT/HCPCS: 96523; J1642

== ENCOUNTER 2023-05-16 01:02 | Day surgery (SDC) | payer MEDICARE ==
[2023-05-16 08:24] VITALS: BP 121/56
== END 2023-05-16 08:34 | disposition home or self-care (01) ==
LOC: ATC 01:02
DX: Z45.2 Encounter for adjustment and management of vascular access device (principal); Z95.828 Presence of other vascular implants and grafts; E86.0 Dehydration; I12.9 Hypertensive chronic kidney disease with stage 1 through stage 4 chronic kidney disease, or unspecified chronic kidney disease; E11.22 Type 2 diabetes mellitus with diabetic chronic kidney disease; N18.4 Chronic kidney disease, stage 4 (severe); D83.1 Common variable immunodeficiency with predominant immunoregulatory T-cell disorders; J44.9 Chronic obstructive pulmonary disease, unspecified; E21.3 Hyperparathyroidism, unspecified; Z88.1 Allergy status to other antibiotic agents; Z79.899 Other long term (current) drug therapy
CPT/HCPCS: 96523; J1642

== ENCOUNTER 2023-05-23 03:05 | Day surgery (SDC) | payer MEDICARE ==
[2023-05-23 08:10] VITALS: BP 138/83
[2023-05-23 08:37] LABS: Hematocrit 37.3 % (33.0-51.0); Hemoglobin 11.6 g/dL (11.5-16.0)
[2023-05-23 09:19] LABS: Albumin, Blood 3.3 g/dL (3.4-5.0); Anion Gap 7 mmol/L (6-16); Blood Urea Nitrogen 40 mg/dL (8-24); Bun/Creatinine Ratio 13.3 (12.0-20.0); CO2, Blood 18 mmol/L (21-32); Calcium, Blood 8.3 mg/dL (8.5-10.1); Chloride, Blood 116 mmol/L (98-108); Creatinine, Blood 3.01 mg/dL (0.40-1.00); Glomerular Filtration Rate 15 (60-); Glucose, Blood 139 mg/dL (70-99); Phosphorus, Blood 3.9 mg/dL (2.5-4.9); Sodium, Blood 141 mmol/L (136-145)
== END 2023-05-23 08:20 | disposition home or self-care (01) ==
LOC: ATC 03:05
PROVIDERS: Internal Medicine Nephrology
DX: Z45.2 Encounter for adjustment and management of vascular access device (principal); E86.0 Dehydration; I12.9 Hypertensive chronic kidney disease with stage 1 through stage 4 chronic kidney disease, or unspecified chronic kidney disease; E11.22 Type 2 diabetes mellitus with diabetic chronic kidney disease; N18.4 Chronic kidney disease, stage 4 (severe); D83.1 Common variable immunodeficiency with predominant immunoregulatory T-cell disorders; J44.9 Chronic obstructive pulmonary disease, unspecified; Z79.899 Other long term (current) drug therapy
CPT/HCPCS: 36591; 80069; 84443; 85014; 85018; J1642

== ENCOUNTER 2023-05-30 03:59 | Day surgery (SDC) | payer MEDICARE ==
[2023-05-30 09:26] VITALS: BP 148/76
== END 2023-05-30 09:10 | disposition home or self-care (01) ==
LOC: ATC 03:59
DX: Z45.2 Encounter for adjustment and management of vascular access device (principal); E86.0 Dehydration; J44.9 Chronic obstructive pulmonary disease, unspecified; I12.9 Hypertensive chronic kidney disease with stage 1 through stage 4 chronic kidney disease, or unspecified chronic kidney disease; N18.4 Chronic kidney disease, stage 4 (severe); E11.22 Type 2 diabetes mellitus with diabetic chronic kidney disease; D83.1 Common variable immunodeficiency with predominant immunoregulatory T-cell disorders; Z95.828 Presence of other vascular implants and grafts; Z88.1 Allergy status to other antibiotic agents
CPT/HCPCS: 96523; J1642

== ENCOUNTER 2023-06-06 02:31 | Day surgery (SDC) | payer MEDICARE ==
[2023-06-06 07:50] VITALS: BP 140/72
== END 2023-06-06 08:01 | disposition home or self-care (01) ==
LOC: ATC 02:31
DX: Z45.2 Encounter for adjustment and management of vascular access device (principal); E86.0 Dehydration; I12.9 Hypertensive chronic kidney disease with stage 1 through stage 4 chronic kidney disease, or unspecified chronic kidney disease; E11.22 Type 2 diabetes mellitus with diabetic chronic kidney disease; N18.4 Chronic kidney disease, stage 4 (severe); D83.1 Common variable immunodeficiency with predominant immunoregulatory T-cell disorders; J44.9 Chronic obstructive pulmonary disease, unspecified
CPT/HCPCS: 96523; J1642

== ENCOUNTER 2023-06-20 04:08 | Day surgery (SDC) | payer MEDICARE ==
[2023-06-20 08:40] VITALS: BP 120/80
== END 2023-06-20 08:49 | disposition home or self-care (01) ==
LOC: ATC 04:08
DX: Z45.2 Encounter for adjustment and management of vascular access device (principal); Z95.828 Presence of other vascular implants and grafts; E21.3 Hyperparathyroidism, unspecified; I12.9 Hypertensive chronic kidney disease with stage 1 through stage 4 chronic kidney disease, or unspecified chronic kidney disease; N18.4 Chronic kidney disease, stage 4 (severe); D63.1 Anemia in chronic kidney disease; Z79.899 Other long term (current) drug therapy
CPT/HCPCS: 96523; J1642

== ENCOUNTER 2023-06-27 00:47 | Day surgery (SDC) | payer MEDICARE ==
[2023-06-27 09:34] VITALS: BP 119/72
== END 2023-06-27 09:41 | disposition home or self-care (01) ==
LOC: ATC 00:47
DX: Z95.828 Presence of other vascular implants and grafts (principal); E86.0 Dehydration; I12.9 Hypertensive chronic kidney disease with stage 1 through stage 4 chronic kidney disease, or unspecified chronic kidney disease; E11.22 Type 2 diabetes mellitus with diabetic chronic kidney disease; N18.4 Chronic kidney disease, stage 4 (severe); D83.1 Common variable immunodeficiency with predominant immunoregulatory T-cell disorders; D44.9 Neoplasm of uncertain behavior of unspecified endocrine gland; E21.3 Hyperparathyroidism, unspecified; E55.9 Vitamin D deficiency, unspecified
CPT/HCPCS: 96523; J1642

== ENCOUNTER 2023-07-11 01:13 | Day surgery (SDC) | payer MEDICARE ==
[2023-07-11 08:40] VITALS: BP 100/81
== END 2023-07-11 08:44 | disposition home or self-care (01) ==
LOC: ATC 01:13
DX: Z45.2 Encounter for adjustment and management of vascular access device (principal); Z95.828 Presence of other vascular implants and grafts; E86.0 Dehydration; I12.9 Hypertensive chronic kidney disease with stage 1 through stage 4 chronic kidney disease, or unspecified chronic kidney disease; E11.22 Type 2 diabetes mellitus with diabetic chronic kidney disease; N18.4 Chronic kidney disease, stage 4 (severe); D83.1 Common variable immunodeficiency with predominant immunoregulatory T-cell disorders; J44.9 Chronic obstructive pulmonary disease, unspecified; K21.9 Gastro-esophageal reflux disease without esophagitis
CPT/HCPCS: 96523; J1642

== ENCOUNTER 2023-07-25 02:22 | Day surgery (SDC) | payer MEDICARE ==
[2023-07-25 09:04] VITALS: BP 111/60
== END 2023-07-25 09:19 | disposition home or self-care (01) ==
LOC: ATC 02:22
DX: Z45.2 Encounter for adjustment and management of vascular access device (principal); E86.0 Dehydration; I12.9 Hypertensive chronic kidney disease with stage 1 through stage 4 chronic kidney disease, or unspecified chronic kidney disease; E11.22 Type 2 diabetes mellitus with diabetic chronic kidney disease; N18.4 Chronic kidney disease, stage 4 (severe); D63.1 Anemia in chronic kidney disease; J44.9 Chronic obstructive pulmonary disease, unspecified; K21.9 Gastro-esophageal reflux disease without esophagitis; Z88.1 Allergy status to other antibiotic agents; Z79.899 Other long term (current) drug therapy
CPT/HCPCS: 96523; J1642

== ENCOUNTER 2023-08-08 07:42 | Day surgery (SDC) | payer MEDICARE ==
[2023-08-08 08:27] VITALS: BP 146/74
== END 2023-08-08 08:41 | disposition home or self-care (01) ==
LOC: ATC 07:42
DX: Z45.2 Encounter for adjustment and management of vascular access device (principal); E86.0 Dehydration; I12.9 Hypertensive chronic kidney disease with stage 1 through stage 4 chronic kidney disease, or unspecified chronic kidney disease; E11.22 Type 2 diabetes mellitus with diabetic chronic kidney disease; N18.4 Chronic kidney disease, stage 4 (severe); D63.1 Anemia in chronic kidney disease; J44.9 Chronic obstructive pulmonary disease, unspecified; E21.3 Hyperparathyroidism, unspecified; K21.9 Gastro-esophageal reflux disease without esophagitis; Z88.1 Allergy status to other antibiotic agents; Z79.899 Other long term (current) drug therapy
CPT/HCPCS: 96523; J1642

== ENCOUNTER 2023-08-22 08:24 | Day surgery (SDC) | payer MEDICARE ==
--- NOTE | 2023-08-21 09:52 | NUR ---
PT DID NOT SHOW FOR HER APPOINTMENT THIS MORNING IN THE [facility].
[2023-08-22 09:03] VITALS: BP 149/103
== END 2023-08-22 09:05 | disposition home or self-care (01) ==
LOC: ATC 08:24
DX: Z45.2 Encounter for adjustment and management of vascular access device (principal); E86.0 Dehydration; I12.9 Hypertensive chronic kidney disease with stage 1 through stage 4 chronic kidney disease, or unspecified chronic kidney disease; E11.22 Type 2 diabetes mellitus with diabetic chronic kidney disease; N18.4 Chronic kidney disease, stage 4 (severe); D83.1 Common variable immunodeficiency with predominant immunoregulatory T-cell disorders; J44.9 Chronic obstructive pulmonary disease, unspecified
CPT/HCPCS: 96523; J1642

== ENCOUNTER 2023-08-27 08:15 | Inpatient (IN) | payer MEDICARE ==
[~2023-08-27] VITALS: Ht 170.2 cm; Wt 58.1 kg
[2023-08-27 09:06] LABS: BASOPHILS ABSOLUTE AUTO 0.03 K/mm3 (0.00-0.23); BASOPHILS PERCENT AUTO 0 % (0-2); EOSINOPHILS ABSOLUTE AUTO 0.03 K/mm3 (0.00-0.68); EOSINOPHILS PERCENT AUTO 0 % (0-6); Hematocrit 31.8 % (33.0-51.0); Hemoglobin 10.1 g/dL (11.5-16.0); IMMATURE GRAN ABSOLUTE AUTO 0.13 K/mm3 (0.00-0.10); IMMATURE GRAN PERCENT AUTO 1 % (0-1); LYMPHOCYTES ABSOLUTE AUTO 1.36 K/mm3 (0.84-5.20); LYMPHOCYTES PERCENT AUTO 8 % (21-46); MONOCYTES ABSOLUTE AUTO 0.87 K/mm3 (0.16-1.47); MONOCYTES PERCENT AUTO 5 % (4-13); Mean Corpuscular HGB 29.7 pg (26.0-34.0); Mean Corpuscular HGB Conc 31.8 g/dL (31.5-36.5); Mean Corpuscular Volume 94 fL (80-100); Mean Platelet Volume 10.8 fL (9.1-12.4); NEUTROPHILS ABSOLUTE AUTO 15.08 K/mm3 (1.96-9.15); NEUTROPHILS PERCENT AUTO 86 % (41-73); Platelet Count 202 K/mm3 (150-400); RDW Coefficient Variation 15.5 % (11.7-14.2); RDW Standard Deviation 52.9 fL (35.1-46.3)
[2023-08-27 09:27] LABS: Magnesium, Blood 1.8 mg/dL (1.6-2.4); Thyroid Stimulating Hormone 1.99 uIU/mL (0.360-4.800)
[2023-08-27 09:28] LABS: Albumin, Blood 2.8 g/dL (3.4-5.0); Albumin/Globulin Ratio 0.6 (0.8-1.8); Bilirubin, Total 0.5 mg/dL (0.1-1.0); Bun/Creatinine Ratio 11.6 (12.0-20.0); Calcium, Blood 8.3 mg/dL (8.5-10.1); Creatinine, Blood 3.72 mg/dL (0.40-1.00); Globulin, Blood 4.5 g/dL (2.2-4.0); Potassium, Blood 4.3 mmol/L (3.5-5.5); Total Protein, Blood 7.3 g/dL (6.4-8.2)
[2023-08-27 11:07] LABS: Influenza A, PCR NEGATIVE (NEGATIVE); Influenza B, PCR NEGATIVE (NEGATIVE); Resp Syncytial Virus, PCR NEGATIVE (NEGATIVE); SARS-Cov-2 (COVID-19) PCR, MMC NEGATIVE (NEGATIVE)
[2023-08-27 12:36] VITALS: BP 122/61
[2023-08-27] MEDS ORDERED: MAGNESIUM SULFATE IV (13:53)
--- NOTE | 2023-08-27 14:19 | NUR ---
PATIENT ADMIT TO PCU AT 1236. ABLE TO STAND AND TRANSFER IND. JACKELINE. ALERT AND ORIENTED X4. 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 ABLE TO MOVE ALL EXTREMITIES WNL. ON ROOM AIR, LUNGS SOUNDING CLEAR AND DIM IN BASES. PATIENT DENIES SOB. SATING ABOVE 95%. EVEN AND UNLABORED RESPIRATIONS. UPON ARRIVAL PATIENT IN SINUS RHYTHM. CARDIZEM GTT TURNED OFF. HR 80'S. SBP 120'S. PATIENT DENIES CHEST PAIN/PRESSURE/PALPITATIONS. NS INFUSING AT 50ML/HR PER EMAR. COMPLAINS OF NAUSEA ON ADMIT. REQUESTING SNACK, NO ISSUES NOTED SWALLOWING. NAUSEA RESOLVED WITH SNACK. BOWEL TONES PRESENT. ILEOSTOMY IN PLACE DRAINING GREEN LIQUID. UROSTOMY IN PLACE DRAINING CLEAR/YELLOW URINE. PATIENT STATES SHE CHANGED BOTH OSTOMY APPLIANCES YESTERDAY. SKIN OVERALL C/D/I. IV ABX INFUSED. MEDIPORT ACCESS FROM ED. PLAN FOR ECHO. DR. MCKENZIE CALLED AND UPDATED ON TRANSFER. ORIENTED TO ROOM/UNIT. CALL LIGHT IN REACH. DAUGHTER CHRISTOPHE AT BEDSIDE FOR ADMIT. MED REC COMPLETED.
--- NOTE | 2023-08-27 15:12 | NUR ---
PATIENT CONVERTED BACK TO AFIB AT 1503. SEE TELE STRIP SAVED IN CHART. DR. MCKENZIE UPDATED.
[2023-08-27 16:06] VITALS: BP 105/59
--- NOTE | 2023-08-27 16:24 | NUR ---
TELE NOTIFIED THIS RN. PATIENT CONVERTED BACK TO SINUS RHYTHM AT THIS TIME.
--- NOTE | 2023-08-27 16:25 | NUR ---
ECHO BEING DONE AT THIS TIME
--- NOTE | 2023-08-27 17:28 | NUR ---
SHIFT SUMMARY: NO ACUTE CHANGES. PATIENT REMAINS IN SINUS RHYTHM AT THIS TIME. ECHO COMPLETED. BP REMAINS STABLE. BACK PAIN RELIEVED WITH OXYCODONE. REMAINS ON ROOM AIR. EATING DINNER AT THIS TIME. ILEOSTOMY AND UROSTOMY WNL. NS CONTINUES TO INFUSE INTO MEDIPORT PER EMAR. CALL LIGHT IN REACH. PATIENT DENIES NEEDS AT THIS TIME.
--- NOTE | 2023-08-27 17:51 | NUR ---
PATIENT CONVERSION BACK TO AFLUTTER AT THIS TIME. HR 90'S. SBP STABLE.
[2023-08-27 20:56] VITALS: BP 101/59
[2023-08-28] VITALS (7 sets, daily range): BP systolic 97–132; BP diastolic 58–74
[2023-08-28 04:14] LABS: BASOPHILS ABSOLUTE AUTO 0.03 K/mm3 (0.00-0.23); BASOPHILS PERCENT AUTO 0 % (0-2); EOSINOPHILS ABSOLUTE AUTO 0.25 K/mm3 (0.00-0.68); EOSINOPHILS PERCENT AUTO 3 % (0-6); Hematocrit 26.8 % (33.0-51.0); Hemoglobin 8.6 g/dL (11.5-16.0); IMMATURE GRAN ABSOLUTE AUTO 0.12 K/mm3 (0.00-0.10); IMMATURE GRAN PERCENT AUTO 1 % (0-1); LYMPHOCYTES ABSOLUTE AUTO 1.18 K/mm3 (0.84-5.20); LYMPHOCYTES PERCENT AUTO 13 % (21-46); MONOCYTES ABSOLUTE AUTO 0.55 K/mm3 (0.16-1.47); MONOCYTES PERCENT AUTO 6 % (4-13); Mean Corpuscular HGB 29.6 pg (26.0-34.0); Mean Corpuscular HGB Conc 32.1 g/dL (31.5-36.5); Mean Corpuscular Volume 92 fL (80-100); Mean Platelet Volume 10.2 fL (9.1-12.4); NEUTROPHILS ABSOLUTE AUTO 6.98 K/mm3 (1.96-9.15); NEUTROPHILS PERCENT AUTO 77 % (41-73); Platelet Count 210 K/mm3 (150-400); RDW Coefficient Variation 15.5 % (11.7-14.2); RDW Standard Deviation 52.9 fL (35.1-46.3); Red Blood Cell Count 2.91 M/mm3 (3.80-5.20); White Blood Cell Count 9.11 K/mm3 (4.00-11.30)
[2023-08-28 04:37] LABS: Albumin, Blood 2.3 g/dL (3.4-5.0); Albumin/Globulin Ratio 0.6 (0.8-1.8); Bilirubin, Total 0.4 mg/dL (0.1-1.0); Bun/Creatinine Ratio 13.4 (12.0-20.0); Calcium, Blood 8.2 mg/dL (8.5-10.1); Creatinine, Blood 3.5 mg/dL (0.40-1.00); Potassium, Blood 4.2 mmol/L (3.5-5.5); Total Protein, Blood 6.3 g/dL (6.4-8.2)
--- NOTE | 2023-08-28 04:43 | NUR ---
SHIFT SUMMARY PT A&Ox4, CALLS AND COMMUNICATES NEEDS APPROPRIATEY. BP STABLE, PT REMAINED IN SINUS 70's THROUGHOUT SHIFT, DENIES CP/PRESSURE. SpO2> 92% RA, DENIES SOB. ILEOSTOMY AND UROSTOMY REMAINED IN PLACE WITH GOOD OUTPUT. NS INFUSING AT 50mLs/HR THROUGHOUT MEDIPORT. NO OTHER EVENTS, WILL REPORT TO ONCOMING RN.
[2023-08-28 08:47] LABS: Anti-Xa UFH, PHA Monitoring <0.10 IU/mL; International Normalized Ratio 1.04; Prothrombin Time Results 10.9 Sec (9.7-11.5)
--- NOTE | 2023-08-28 18:16 | NUR ---
ASSUMED CARE OF PT AT [address] MORALES CONTACTED DR MCKENZIE WITH ECHO REPORT FINDINGS. PT HAD A CT CHEST/ABD/PELVIS THIS AM. PT STARTED ON HEPARIN. PT'S DTR CHRISTOPHE IN TO VISIT THIS AM, UPDATED ON PT CONDITION WITH PT'S PERMISSION. DR MCKENZIE IN TO SPEAK TO PT AND DTR THIS AM WELL. NO ACUTE CHANGES T/O THE SHIFT. PT HAS HAD NO COMPLAINTS. MEDICATED FOR PAIN X1 DOSE. PT IS MANAGING HER OWN ILEOSTOMY AND UROSTOMY INDEPENDENTLY. PT/OT EVALS DONE TODAY, PT IS SBA FOR SAFETY, WALKER NEEDED. PT IS A&OX4, ABLE TO USE CALL LIGHT FOR NEEDS. CALL LIGHT IN REACH, WILL CONINTUE TO MONITOR.
[2023-08-29 03:58] VITALS: BP 111/64
--- NOTE | 2023-08-29 05:10 | NUR ---
SHIFT SUMMARY PT A&Ox4, CALLS AND COMMUNICATES NEEDS APPROPRIATEY. BP STABLE, SINUS w/ BBB 70's, DENIES CP/PRESSURE. SpO2> 92% RA, DENIES SOB. ILEOSTOMY AND UROSTOMY REMAINED IN PLACE WITH GOOD OUTPUT. NS INFUSING AT 50mLs/HR AND HEPARIN gtt INFUSING PER EMAR, MAMANGED BY PHARMACY; THROUGH MEDIPORT, PHARMACY OK'd RUNNING NS AND HEPARIN TOGETHER AT Y-SITE. NO OTHER EVENTS, WILL REPORT TO ONCOMING RN.
[2023-08-29 06:30] LABS: BASOPHILS ABSOLUTE AUTO 0.04 K/mm3 (0.00-0.23); BASOPHILS PERCENT AUTO 1 % (0-2); EOSINOPHILS ABSOLUTE AUTO 0.15 K/mm3 (0.00-0.68); EOSINOPHILS PERCENT AUTO 2 % (0-6); Hematocrit 26.2 % (33.0-51.0); Hemoglobin 8.3 g/dL (11.5-16.0); IMMATURE GRAN ABSOLUTE AUTO 0.28 K/mm3 (0.00-0.10); IMMATURE GRAN PERCENT AUTO 5 % (0-1); LYMPHOCYTES ABSOLUTE AUTO 0.74 K/mm3 (0.84-5.20); LYMPHOCYTES PERCENT AUTO 12 % (21-46); MONOCYTES ABSOLUTE AUTO 0.46 K/mm3 (0.16-1.47); MONOCYTES PERCENT AUTO 7 % (4-13); Mean Corpuscular HGB 29.5 pg (26.0-34.0); Mean Corpuscular HGB Conc 31.7 g/dL (31.5-36.5); Mean Corpuscular Volume 93 fL (80-100); Mean Platelet Volume 10.5 fL (9.1-12.4); NEUTROPHILS ABSOLUTE AUTO 4.53 K/mm3 (1.96-9.15); NEUTROPHILS PERCENT AUTO 73 % (41-73); Platelet Count 203 K/mm3 (150-400); RDW Coefficient Variation 15.3 % (11.7-14.2); RDW Standard Deviation 52.6 fL (35.1-46.3); Red Blood Cell Count 2.81 M/mm3 (3.80-5.20)
[2023-08-29 06:53] LABS: Albumin, Blood 2.3 g/dL (3.4-5.0); Albumin/Globulin Ratio 0.6 (0.8-1.8); Bilirubin, Total 0.3 mg/dL (0.1-1.0); Bun/Creatinine Ratio 13.8 (12.0-20.0); Calcium, Blood 8.4 mg/dL (8.5-10.1); Creatinine, Blood 3.18 mg/dL (0.40-1.00); Potassium, Blood 4.3 mmol/L (3.5-5.5); Total Protein, Blood 6.3 g/dL (6.4-8.2)
[2023-08-29 07:12] LABS: Cancer Antigen 125 5.8 U/mL (1.5-35.0); Carcinoembryonic Antigen 2.4 ng/mL (0.0-3.0)
[2023-08-29 07:14] VITALS: BP 110/77
[2023-08-29 12:13] VITALS: BP 122/76
[2023-08-29 17:34] VITALS: BP 118/70
--- NOTE | 2023-08-29 18:36 | NUR ---
ASSUMED CARE OF PT AT 0700. NO ACUTE CHANGES T/O THE SHIFT. HEPARIN GTT CONTINUES PRESCRIBED RATE T/O THE DAY. PT OOB SBA TO RESTROOM NEEDED. IR CONSULTED FOR POSSIBLE MEDIPORT REPLACEMENT R/T MASS IN HEART. PT HAS HAD NO COMPLAINTS T/O THE DAY, DTR VISITED AND UPDATED ON PT STATUS. PT MANAGES HER ILEOSTOMY AND UROSTOMY HERSELF. AWAITING IR CONSULT TO DETERMINE PLAN OF CARE. PT ABLE TO USE CALL LIGHT FOR NEEDS, CALL LIGHT IN REACH, WILL CONTINUE TO MONITOR AND GIVE REPORT TO NOC SHIFT RN.
[2023-08-29 20:34] VITALS: BP 127/67
--- NOTE | 2023-08-29 22:04 | NUR ---
care assumption this rn assumed care at 1900. vital signs stable. tele sr. patient is alert and oriented x4. perrla. patient reports no chest pain/pressure, pain, or shortness of breath. patient is able to perform own care, and this rn educated the patient to call before getting up due to heparin infusing, see emar. bed alarm on. patient self manages urostomy and ileostomy. see shift assessment for further detials. plan of care up to date. call light within reach and bed in lowest position.
[2023-08-29 23:24] VITALS: BP 104/65
[2023-08-30 02:20] VITALS: BP 112/62
[2023-08-30 02:50] LABS: Hemoglobin 8.2 g/dL (11.5-16.0); Mean Corpuscular HGB 29.5 pg (26.0-34.0); Mean Corpuscular HGB Conc 31.5 g/dL (31.5-36.5); Mean Corpuscular Volume 94 fL (80-100); Mean Platelet Volume 10.2 fL (9.1-12.4); Platelet Count 225 K/mm3 (150-400); RDW Coefficient Variation 15.2 % (11.7-14.2); RDW Standard Deviation 52.8 fL (35.1-46.3); Red Blood Cell Count 2.78 M/mm3 (3.80-5.20); White Blood Cell Count 6.92 K/mm3 (4.00-11.30)
[2023-08-30 03:03] LABS: Magnesium, Blood 1.6 mg/dL (1.6-2.4)
[2023-08-30 03:04] LABS: Albumin, Blood 2.2 g/dL (3.4-5.0); Albumin/Globulin Ratio 0.6 (0.8-1.8); Bilirubin, Total 0.3 mg/dL (0.1-1.0); Bun/Creatinine Ratio 14.4 (12.0-20.0); Calcium, Blood 8.3 mg/dL (8.5-10.1); Creatinine, Blood 2.98 mg/dL (0.40-1.00); Potassium, Blood 4.5 mmol/L (3.5-5.5); Total Protein, Blood 6.2 g/dL (6.4-8.2)
[2023-08-30 03:51] LABS: BAND PERCENT MAN 1 % (0-8); BASOPHILS ABSOLUTE MAN 0.06 K/mm3 (0.00-0.23); BASOPHILS PERCENT MAN 1 % (0-2); EOSINOPHILS PERCENT MAN 0 % (0-6); LYMPHOCYTES ABSOLUTE MAN 1.52 K/mm3 (0.84-5.20); LYMPHOCYTES PERCENT MAN 22 % (21-46); METAMYELOCYTE ABSOLUTE MAN 0.13 K/mm3 (0.00-0.00); METAMYELOCYTE PERCENT MAN 2 % (0-0); MONOCYTES ABSOLUTE MAN 0.55 K/mm3 (0.16-1.47); MONOCYTES PERCENT MAN 8 % (4-13); MYELOCYTE PERCENT MAN 3 % (0-0); NEUTROPHILS ABSOLUTE MAN 4.42 K/mm3 (1.96-9.15); SEG NEUTROPHILS PERCENT MAN 63 % (41-73); TOTAL CELLS COUNTED 100
--- NOTE | 2023-08-30 05:04 | NUR ---
shift summary patient neuro remains unchaged. vital signs stable. tele sr. patient sleeping most of the night. plan of care remains up to date. no acute changes. call light within reach and bed in lowest position.
--- NOTE | 2023-08-30 17:27 | NUR ---
PT IS ALERT AND ORIENTED X4. NO ACUTE CHANGES THIS SHIFT. SHE IS INDEPENDENT IN THE ROOM. HEPARIN DRIP CONTINUES. RIGHT CHEST PORT WAS REMOVED AT BEDSIDE TODAY AND THE TIP HAS BEEN SENT OFF FOR CULTURES. DAUGHTER CHRISTOPHE UPDATED OVER THE PHONE. PT CARES FOR ILIOSTOMY AND UROSTOMY HERSELF. ABLE TO MAKE NEEDS KNOWN. CURRENTLY NS IN THE 70S.
[2023-08-30 19:32] VITALS: BP 125/74
--- NOTE | 2023-08-30 22:09 | NUR ---
Care assumption this rn assumed care at 1900. vital signs stable. tele sr 60-70s. patient is alert and oriented x4. perrla. patient reports no chest pain/pressure, pain, or shortness of breath. patient has small amount of bleeding at site of removal of mediport on left chest well; no tenderness or swelling. see shift assessment for further detials. patient self manages ileostomy and urostomy. patient has heparin infusing at 22u/kg/hr. see emar. plan of care is up to date at this time.
[2023-08-31 00:38] VITALS: BP 116/60
[2023-08-31 02:16] LABS: Hematocrit 29.4 % (33.0-51.0); Hemoglobin 9.4 g/dL (11.5-16.0); Mean Corpuscular HGB 29.3 pg (26.0-34.0); Mean Corpuscular Volume 92 fL (80-100); Mean Platelet Volume 9.9 fL (9.1-12.4); Platelet Count 257 K/mm3 (150-400); RDW Coefficient Variation 15.2 % (11.7-14.2); RDW Standard Deviation 51.1 fL (35.1-46.3); Red Blood Cell Count 3.21 M/mm3 (3.80-5.20); White Blood Cell Count 8.01 K/mm3 (4.00-11.30)
[2023-08-31 02:38] LABS: Albumin, Blood 2.5 g/dL (3.4-5.0); Albumin/Globulin Ratio 0.6 (0.8-1.8); Bilirubin, Total 0.3 mg/dL (0.1-1.0); Bun/Creatinine Ratio 14.8 (12.0-20.0); Calcium, Blood 8.6 mg/dL (8.5-10.1); Creatinine, Blood 2.91 mg/dL (0.40-1.00); Globulin, Blood 4.4 g/dL (2.2-4.0); Magnesium, Blood 1.6 mg/dL (1.6-2.4); Phosphorus, Blood 3.7 mg/dL (2.5-4.9); Potassium, Blood 5.1 mmol/L (3.5-5.5); Total Protein, Blood 6.9 g/dL (6.4-8.2)
[2023-08-31 02:57] LABS: BAND PERCENT MAN 2 % (0-8); BASOPHILS PERCENT MAN 0 % (0-2); EOSINOPHILS PERCENT MAN 5 % (0-6); LYMPHOCYTES ABSOLUTE MAN 0.88 K/mm3 (0.84-5.20); LYMPHOCYTES PERCENT MAN 11 % (21-46); METAMYELOCYTE ABSOLUTE MAN 0.16 K/mm3 (0.00-0.00); METAMYELOCYTE PERCENT MAN 2 % (0-0); MONOCYTES ABSOLUTE MAN 0.88 K/mm3 (0.16-1.47); MONOCYTES PERCENT MAN 11 % (4-13); MYELOCYTE ABSOLUTE MAN 0.16 K/mm3 (0.00-0.00); MYELOCYTE PERCENT MAN 2 % (0-0); NEUTROPHILS ABSOLUTE MAN 5.52 K/mm3 (1.96-9.15); SEG NEUTROPHILS PERCENT MAN 67 % (41-73); TOTAL CELLS COUNTED 100
--- NOTE | 2023-08-31 03:22 | NUR ---
HEPARIN RATE CHANGE heparin bolus given per emar orders, 1500 units. heparin drip increased rate to 24u/kg/hr. verified with geraldo walton. see emar for detials. see orders for history.
[2023-08-31 03:25] VITALS: BP 126/65
--- NOTE | 2023-08-31 06:12 | NUR ---
SHIFT SUMMARY no acute changes this shift. see pervious notes. vital signs stable. tele sr. plan of care remains up to date.
--- NOTE | 2023-08-31 06:23 | NUR ---
BLOOD CULTURE this rn received a call from lab informing this rn with two positive blood cultures growing yeast. this rn called md kurtz.
[2023-08-31 07:53] VITALS: BP 110/68
[2023-08-31 15:54] VITALS: BP 118/73
--- NOTE | 2023-08-31 16:51 | NUR ---
SHIFT SUMMARY: PT ALERT AND ORIENTED X4, ABLE TO FOLLOW COMMANDS AND MAKE NEEDS KNOWN. STRENGTH EQUAL BILATERALLY. BP AND HR STABLE. AFEBRILE. SPO2 >98% ON ROOM AIR. RESPIRATIONS EVEN AND UNLABORED AT REST, PT STATES SHORTNESS OF BREATH W/ ACTIVITY. DENIES CP/PRESSURE. PULSES STRONG AND EQUAL THROUGHOUT. HEPARIN REMAINS GTT IN R. FOREARM @24/UNITS/KR/HR. NS GTT @50ML/HR IN R. AC. ECHO COMPLETED, SEE REPORT. PT WITH ILEUOSTOMY/UROSTOMY. MAINTAINS HERSELF. SBA TO AND FROM BATHROOM. CALL APPROPRIATELY. PT GIVEN SHOWER THIS SHIFT. DAUGHTER AT BEDSIDE MAJORITY OF THE DAY, UPDATED ON PT PLAN OF CARE. PLAN FOR POSSIBLE MEDIPORT PLACEMENT SATURDAY. BED IN LOW, CALL LIGHT IN REACH, WILL REPORT TO ONCOMING RN.
[2023-08-31 19:03] VITALS: BP 108/62
--- NOTE | 2023-08-31 19:28 | NUR ---
AOS: A/OX4, ENDORSES CONTINUED PLEURATIC CHEST PRESSURE WITH DEEP BREATHING. EDUCATED WELL IN REGAURDS TO CALLING AND NOTIFYING WITH CHANGES WHETHER WORSENING OR IMPORVING, MEDICATED FOR PAIN. ON RA SPO2 >97%. AFEBRILE. PATIENT CONCERNS FOR MORE SLEEP AND LESS DISTURBANCES, SHE ALSO ENDORESED DECREASED NEED FOR LABS. EDUCATED AND AGREED TO AM LABS. HEPARIN AND NS STILL INFUSING AT CORRECT DOSING. PATIENT IN NO SIGNS OF ACUTE DISTRESS. OF NOTE SHE HAD ENDORSED VERY VERY MINOR OFF AND ON SMALL AMOUNTS OF BLOOD FROM HER ILEOSTOMY AT TIMES, WILL VERIFY WITH AM LABS VSS AT THIS TIME. RECOMMENDATIONS: NO SEEN PPI, OR H2 ANTAGONIST.
[2023-08-31 22:48] VITALS: BP 113/61
[2023-09-01 05:22] VITALS: BP 102/60
[2023-09-01 05:49] LABS: Hematocrit 30.1 % (33.0-51.0); Hemoglobin 9.3 g/dL (11.5-16.0); Mean Platelet Volume 10.2 fL (9.1-12.4); Platelet Count 294 K/mm3 (150-400)
--- NOTE | 2023-09-01 06:28 | NUR ---
NO CHANGES FROM ASSUMPTION OF CARE. DENIES CHEST PAIN PRESSURE OR SOB, DID RECEIEVE MICAFUNGIN FOR COVERAGE OF YEAST IN THE BLOOD CULTURES. TOLERATED WELL. NO CHANGE TO HEPARIN DRIP
[2023-09-01 08:16] VITALS: BP 116/57
[2023-09-01 11:04] LABS: C-REACTIVE PROTEIN, EXT RANGE 5.18 mg/dL (0.000-0.300); Calcium, Blood 8.4 mg/dL (8.5-10.1); Creatinine, Blood 2.64 mg/dL (0.40-1.00); Potassium, Blood 5.1 mmol/L (3.5-5.5)
[2023-09-01 11:49] VITALS: BP 109/70
--- NOTE | 2023-09-01 15:50 | NUR ---
UPDATE PT REMAINS ALERT AND ORIENTED. VS STABLE. HR REMAINS NSR. O2 SATS >90% ON RA. PT COMPLAINS OF PLEURITIC CHEST PAIN AT TIMES, BUT STATES IT IS TOLERABLE. PT MANAGING HER OWN ILEOSTOMY AND UROSTOMY. PT ABLE TO TRANSFER INDEPENDENTLY NEEDED. HEP GTT INGUSING PER ORDERS. NS INFUSING PER ORDERS. PLAN FOR PT TO BE NPO AT MIDNIGHT FOR MATT IN AM. REPORT GIVEN TO MEDICAL FLOOR RN TO ASSUME CARE. PT TO BE TAKEN UP BY WC
[2023-09-01 16:10] VITALS: BP 133/79
--- NOTE | 2023-09-01 16:31 | NUR ---
TRANSFERRED NOTE: PATIENT ARRIVES TO ROOM AT 1610 VIA WHEELCHAIR FROM PCU FOR DX'S OF AFIV c RVR, WHICH RESSOLVED PER REPORT. ASSUMED CARE OF PATIENT. PATIENT IS A/OX4. CALM, PLEASANT AND COOPERATIVE c CARE. ORIENTATED TO ROOM AND CALL LIGHTS. NOTED CLEAR DRESSING TO RU CHEST FROM MEDIPORT WAS TAKEN OUT COUPLE DAYS AGO. PATIENT REPORTS "HEAVINESS FEELING TO CHEST AND IT'S BEEN 4 DAYS NOW." DENIES CP, SOB, N/V AND DIZZINESS. PATIENT ON TELE, SR IN THE HIGH 70'S BPM. PATIENT HAS R ILEOSTOMY, L UROSTOMY AND CONNECTED TO BAG. PIV TO R WRIST c 2 LUMEN INFUSING HEPARIN AT 24 U/KG/HR AND NS AT 50 MLS/HR. VITAL SIGNS REVIEWED. CALL LIGHT IN REACH.
[2023-09-01 19:45] VITALS: BP 122/65
[2023-09-02] VITALS (27 sets, daily range): BP systolic 84–132; BP diastolic 48–100
[2023-09-02 03:23] LABS: Hematocrit 30.6 % (33.0-51.0); Hemoglobin 9.5 g/dL (11.5-16.0); Mean Platelet Volume 9.7 fL (9.1-12.4); Platelet Count 320 K/mm3 (150-400)
[2023-09-02 03:41] LABS: Bun/Creatinine Ratio 18.5 (12.0-20.0); Calcium, Blood 8.7 mg/dL (8.5-10.1); Creatinine, Blood 2.65 mg/dL (0.40-1.00); Potassium, Blood 5.6 mmol/L (3.5-5.5)
--- NOTE | 2023-09-02 04:53 | NUR ---
SHIFT SUMMARY NO ACUTE CHANGES NOTED. PATIENT IS A&O X4, COOPERATIVE WITH CARE, ABLE TO MAKE NEEDS KNOWN AND CALLS APPROPRIATELY. PATIENT HAS A UROSTOMY AND ILLEOSTOMY. PATIENT SELF EMPTYS-TALKED WITH PATIENT ABOUT NOTIFYING STAFF WHEN SHE NEEDS TO EMPTY SO WE CAN GET A MEASUREMENT. PATIENT HAS BEEN NPO SINCE MIDNIGHT FOR PROCEDURE TODAY. [T DENIES CHEST PAIN/PRESSURE/TIGHTNESS. PATIENT REPORTS THAT SHE HAS SOME PAIN IN HER FROM PNEUMONIA THAT IS TOLERABLE. PATIENTS PAIN ASSESSED-PATIENT DENIES PAIN. HEPARIN DRIP IS RUNNING AND TELE IS IN PLACE. BED IS LOCKED IN THE LOWEST POSITION WITH CALL LIGHT IN REACH.
--- NOTE | 2023-09-02 13:40 | NUR ---
PT AWAKE AND CONVERSING APPROPRIATELY; DENIES PAIN, VSS.
--- NOTE | 2023-09-02 13:53 | NUR ---
REPORT CALLED TO LEONARDO THOMAS; ALL QUESTIONS ANSWERED. PT RETURNED TO ROOM 303 POST PROCEDURE, CONDITION STABLE.
--- NOTE | 2023-09-02 16:18 | NUR ---
SHIFT SUMMARY; PATIENT HAD MATT PROCEDURE AT [facility] TODAY. LEAVING MED FLOOR APPROX 1015 FOR PROCEDURE. RETURNS APROX 1300 TO ROOM. POST PROCEDURE VITALS ARE WNL. TO SPEAK WITH FAMILY LATER THIS EVENING OR TOMORROW ABOUT RESULTS OF PROCEDURE. PAITENT IS INDEPENDANT IN ROOM. BACK AND FORTH TO BATHROOM WITH SBA FOR IV PUMP.
[2023-09-03 00:46] VITALS: BP 116/62
[2023-09-03 03:52] VITALS: BP 105/59
--- NOTE | 2023-09-03 04:05 | NUR ---
PT A&O x4, VSS, AFEBRILE. PT CALM AND COOPERATIVE WITH CARE PROVIDED. PT DENIED ANY CHEST PAIN/TIGHTNESS/PRESSURE, NO C/O SOB. OXYGEN SAT 99% ON RA. RESP EVEN AND UNLABORED. PT RECEIVED IV ANTIBIOTICS. PT SLEPT ON AND OFF THROUGHOUT THE NIGHT. PT ABLE TO MAKE NEEDS KNOWN. CALL LIGHT WITHIN REACH, WCTM.
[2023-09-03 05:09] LABS: Hematocrit 31.8 % (33.0-51.0); Hemoglobin 9.9 g/dL (11.5-16.0); Mean Corpuscular HGB 28.9 pg (26.0-34.0); Mean Corpuscular HGB Conc 31.1 g/dL (31.5-36.5); Mean Corpuscular Volume 93 fL (80-100); Mean Platelet Volume 9.3 fL (9.1-12.4); Platelet Count 339 K/mm3 (150-400); RDW Coefficient Variation 15.5 % (11.7-14.2); RDW Standard Deviation 53.2 fL (35.1-46.3); Red Blood Cell Count 3.42 M/mm3 (3.80-5.20); White Blood Cell Count 9.86 K/mm3 (4.00-11.30)
[2023-09-03 05:37] LABS: Bun/Creatinine Ratio 18.4 (12.0-20.0); Calcium, Blood 8.9 mg/dL (8.5-10.1); Creatinine, Blood 2.77 mg/dL (0.40-1.00)
[2023-09-03 06:00] LABS: BASOPHILS PERCENT MAN 0 % (0-2); EOSINOPHILS ABSOLUTE MAN 0.49 K/mm3 (0.00-0.68); EOSINOPHILS PERCENT MAN 5 % (0-6); LYMPHOCYTES ABSOLUTE MAN 0.88 K/mm3 (0.84-5.20); LYMPHOCYTES PERCENT MAN 9 % (21-46); MONOCYTES ABSOLUTE MAN 0.19 K/mm3 (0.16-1.47); MONOCYTES PERCENT MAN 2 % (4-13); NEUTROPHILS ABSOLUTE MAN 7.78 K/mm3 (1.96-9.15); SEG NEUTROPHILS PERCENT MAN 79 % (41-73); TOTAL CELLS COUNTED 100
[2023-09-03 06:01] LABS: MYELOCYTE ABSOLUTE MAN 0.49 K/mm3 (0.00-0.00); MYELOCYTE PERCENT MAN 5 % (0-0)
[2023-09-03 07:02] VITALS: BP 119/56
--- NOTE | 2023-09-03 07:25 | NUR ---
CRITICAL LAB VALUE NOTIFICATION POTASSIUM: 6.0 DR. MARTÍNEZ ORDERED A ONE TIME DOSE OF IV DEXTROSE 50% 50 mL SYRINGE, AND 5 UNITS OF HUMULIN R. NO C/O OF SOB, CHEST PAIN, N/V. WCTM.
[2023-09-03 09:11] LABS: Bun/Creatinine Ratio 18.3 (12.0-20.0); Creatinine, Blood 2.68 mg/dL (0.40-1.00); Potassium, Blood 4.8 mmol/L (3.5-5.5)
[2023-09-03 15:10] VITALS: BP 115/68
[2023-09-03] MEDS ORDERED: HYDROCODONE-AC1 EAC7 PO (15:23)
--- NOTE | 2023-09-03 16:59 | NUR ---
SHIFT SUMMARY; PATIENT HAD NO ACUTE CHANGES IN CONDITION NOTED DURING DAY. COMES TOSEE PATIENT AND GO OVER RESULTS OF YESTERDAYS' MATT. PATIENT RECEIVING INCREASED LEVEL OF FLUIDS AT 100ML/HR PER VERBAL ORDER. SHE IS INDEPENDANT IN ROOM. USES CALL LIGHT APPROPRIATELY. REMAINS ON TELE.
[2023-09-03 19:15] VITALS: BP 113/63
[2023-09-04 04:18] VITALS: BP 124/60
--- NOTE | 2023-09-04 04:42 | NUR ---
SHIFT SUMMARY NOC PT A/O X 4. PLEASANT AND COOPERATIVE WITH CARE. NO ACUTE CHANGES TO REPORT. PT STILL SELF MANAGING ILEOSTOMY/UROSTOMY AND HAS SUFFICIENT SUPPLIES ON HAND. PT ON TELE RUNNING SINUS RHYTHM @ 67 BPM. CONTINUOS INFUSION NS @ 100 ML/HR AND RECEIVING IV ANTIFUNGAL FOR FUNGAL INFECTION AT PREVIOUS MEDIPORT SITE IN [facility]. PT WILL REQUIRE CONSULT WITH DR CAMPOS FOR MEDIPORT PLACEMENT BEFORE PT CAN DISCHARGE. PT IS CURRENTLY RESTING WITH BED IN LOWEST POSITION, AND CALL LIGHT WITHIN REACH.
[2023-09-04 05:03] LABS: Hematocrit 30.9 % (33.0-51.0); Hemoglobin 9.5 g/dL (11.5-16.0); Mean Corpuscular HGB Conc 30.7 g/dL (31.5-36.5); Mean Corpuscular Volume 94 fL (80-100); Platelet Count 309 K/mm3 (150-400); RDW Coefficient Variation 15.3 % (11.7-14.2); RDW Standard Deviation 53.1 fL (35.1-46.3); Red Blood Cell Count 3.28 M/mm3 (3.80-5.20); White Blood Cell Count 10.36 K/mm3 (4.00-11.30)
[2023-09-04 05:40] LABS: BAND PERCENT MAN 1 % (0-8); BASOPHILS PERCENT MAN 0 % (0-2); EOSINOPHILS ABSOLUTE MAN 0.62 K/mm3 (0.00-0.68); EOSINOPHILS PERCENT MAN 6 % (0-6); LYMPHOCYTES ABSOLUTE MAN 1.34 K/mm3 (0.84-5.20); LYMPHOCYTES PERCENT MAN 13 % (21-46); MONOCYTES ABSOLUTE MAN 0.31 K/mm3 (0.16-1.47); MONOCYTES PERCENT MAN 3 % (4-13); MYELOCYTE PERCENT MAN 1 % (0-0); NEUTROPHILS ABSOLUTE MAN 7.97 K/mm3 (1.96-9.15); SEG NEUTROPHILS PERCENT MAN 76 % (41-73); TOTAL CELLS COUNTED 100
[2023-09-04 05:44] LABS: Bun/Creatinine Ratio 19.2 (12.0-20.0); Calcium, Blood 8.6 mg/dL (8.5-10.1); Creatinine, Blood 2.81 mg/dL (0.40-1.00)
[2023-09-04 07:14] VITALS: BP 125/82
[2023-09-04 10:59] LABS: Bun/Creatinine Ratio 19.1 (12.0-20.0); Calcium, Blood 8.4 mg/dL (8.5-10.1); Creatinine, Blood 2.67 mg/dL (0.40-1.00); Potassium, Blood 5.3 mmol/L (3.5-5.5)
--- NOTE | 2023-09-04 11:20 | NUR ---
RHYTHM CHANGE LYN FROM TELEMETRY CALLED AND REPORTED THAT THE PATIENTS RHYTHM CHANGED FROM NSR IN THE 80S TO A SINUS RHYTHM WITH A ABNORMAL T WAVE AND LARGE ST ELEVATION. THE PATIENT HAS NO COMPLAINTS AND NO CHEST PAIN AT THIS TIME. TELE REPORTED THAT THIS IS NOT THE FIRST TIME THIS HAS OCCURED. THIS EVENT OCCURED WHILE THE PATIENT WAS AMBULATING TO THE BATHROOM. DR. MORRIS NOTIFIED OF EVENTS. NO NEW ORDERS TAKEN OVER THE PHONE.
[2023-09-04 14:53] VITALS: BP 117/62
--- NOTE | 2023-09-04 18:26 | NUR ---
SHIFT SUMMARY ELEVATED POTASSIUM CAME DOWN AFTER MEDS TODAY TO 5.3. DR. GUERRA CONSULTED AND CHANGED FLUIDS TO BICARB IN 1/2NS AT 75 ML/HR. NEW IV PLACED TODAY. NEW BLOOD CULTURES COLLECTED TODAY. A LINE CAN BE PLACED AFTER 48HRS OF NO GROUTH PER MD. PT EAGER TO GET HOME. DENIES OTHER NEEDS AT THIS TIME. VS REVIEWED. HOWARD LIGHT IN REACH.
[2023-09-04 20:19] VITALS: BP 112/65
[2023-09-05 05:29] VITALS: BP 118/63
--- NOTE | 2023-09-05 05:39 | NUR ---
SHIFT SUMMARY PT LAYING IN BED DURING BEDSIDE REPORT WITH MELISSA RN- REPORT THAT DR. GUERRA ROUNDED AND DISCUSSED WITH PT ARANESP INJECTIONS THAT PT REFUSED EARLIER IN SHIFT- PT DIDN'T UNDERSTAND THAT SHE ROUTINELY TAKES THE INJECTIONS EVERY 2 WEEKS- WILL GIVE WITH HS MEDS- IV INFUSING WITHOUT PROBLEMS, PT DENIES PAIN- PT TOOK SCHEDULED HS MEDICATIONS WITHOUT PROBLEMS, ORDER FOR BLADDER SCAN, PT REPORTS HAVING HER WHOLE BLADDER REMOVED IN 2011- INFORMED PT OF 24 HOUR COLLECTION STARTING IN AM- PT STATED UNDERSTANDING AND AGREED TO NOTIFY THIS RN IN AM WITH FIRST EMPTYING OF UROSTOMY- PT SLEPT T/O NIGHT - 0530 PT AWAKENED AND DUMPED FIRST URINE- NEW URINAL PLACED IN BATHROOM AND EDUCATED PT OF CALLING STAFF INSTANTLY EACH TIME SHE EMPTIES UROSTOMY- BED LOW POSITION, CALL LIGHT WITHIN REACH
[2023-09-05 05:41] LABS: Hemoglobin 9.1 g/dL (11.5-16.0)
[2023-09-05 06:20] LABS: Albumin, Blood 2.8 g/dL (3.4-5.0); Anion Gap 6 mmol/L (6-16); Blood Urea Nitrogen 53 mg/dL (8-24); Bun/Creatinine Ratio 20.2 (12.0-20.0); CO2, Blood 22 mmol/L (21-32); Chloride, Blood 110 mmol/L (98-108); Creatinine, Blood 2.63 mg/dL (0.40-1.00); Glomerular Filtration Rate 18 (60-); Glucose, Blood 85 mg/dL (70-99); Magnesium, Blood 1.2 mg/dL (1.6-2.4); Phosphorus, Blood 4.6 mg/dL (2.5-4.9); Potassium, Blood 5.1 mmol/L (3.5-5.5); Sodium, Blood 138 mmol/L (136-145); Uric Acid, Blood 8.5 mg/dL (2.6-6.0)
[2023-09-05 07:22] VITALS: BP 116/63
[2023-09-05 16:25] VITALS: BP 116/66
--- NOTE | 2023-09-05 17:50 | NUR ---
SHIFT SUMMARY PT AOX4, INDEPENDENT IN THE ROOM AND INDEPENDENT AT MANAGING HER ILLEOSTOMY AND UROSTOMY. 24 HOUR URINE IN PROGRESS. NO COMPLAINTS OF PAIN BUT MEDICATED FOR NAUSEA ONCE THIS SHIFT. SODIUM BICARB INFUSING @75. SHE IS AWAITING PLACEMENT OF A PICC, PENDING CULTURES. SHE CALLS AND MAKES HER NEEDS KNOWN. CALL LIGHT WITHIN REACH, BED IN THE LOWEST POSITION. WILL REPORT TO ONCOMING NURSE.
[2023-09-05 20:04] VITALS: BP 107/61
[2023-09-06 04:33] VITALS: BP 124/66
[2023-09-06 04:45] LABS: Hemoglobin 8.9 g/dL (11.5-16.0)
[2023-09-06 05:30] LABS: Albumin, Blood 2.7 g/dL (3.4-5.0); Anion Gap 8 mmol/L (6-16); Blood Urea Nitrogen 45 mg/dL (8-24); Bun/Creatinine Ratio 16.6 (12.0-20.0); CO2, Blood 26 mmol/L (21-32); Calcium, Blood 8.1 mg/dL (8.5-10.1); Chloride, Blood 104 mmol/L (98-108); Creatinine, Blood 2.71 mg/dL (0.40-1.00); Glomerular Filtration Rate 17 (60-); Glucose, Blood 85 mg/dL (70-99); Magnesium, Blood 1.8 mg/dL (1.6-2.4); Phosphorus, Blood 4.8 mg/dL (2.5-4.9); Potassium, Blood 4.8 mmol/L (3.5-5.5); Sodium, Blood 138 mmol/L (136-145)
--- NOTE | 2023-09-06 06:06 | NUR ---
PT DID VERY WELL AND WANTED TO GO TO SLEEP EARLY WITH LITTLE INTERUPTIONS BUT PCU CALLED STATED THAT PT HAD 12 BEAT RUN OF VTACH. WAS NOTIFIED AND A STAT MAG WAS ORDERED FOR BLOOD DRAW. MAG WAS NORMAL AND NO ADDITONAL IRREGULARIIES NOTED. URINE COLLECTION ENDED AT 0530 AND WAS SENT TO LAB.
[2023-09-06 07:39] VITALS: BP 121/71
--- NOTE | 2023-09-06 15:42 | NUR ---
PER MICROBIOLOGY IT TAKES 4 WEEKS TO GET A FUNGAL CULTURE BACK. SAYS TO WAIT FOR A PICC LINE AND TO PLACE A POWERGLIDE SO SHE CAN GO HOME TODAY. TEJAL PATTERSON IS UNABLE TO PLACE ONE TODAY SO ICU IS CALLED AND WILL GET BACK TO ME. JAVI PATTERSONCUT OUT OPERATOR IS NOTIFIED.
[2023-09-06 16:12] VITALS: BP 124/71
[2023-09-06 20:51] VITALS: BP 123/75
--- NOTE | 2023-09-07 05:11 | NUR ---
REPORT RECEIVED VERIFIED. PT A LITTLE UPSET THAT PICC LINE MAY TAKE A LITTLE LONGER THEN EXPECTED AND WOULD LIKE TO FIGURE OUT SOLUTION IN THE MORNING. FOR NOW I STARTED IV IN RIGHT FOREARM SO FLUIDS AND ANTIBIOTICS COULD BE ADMINISTERED. PT WAS INFORMED OF AM LAB DRAWS AND THAT SHE WOULDNT BE BOTHERED UNTIL THEN, PT AGREED THOUGH SHE DID NOT WANT ANY MORE LABS DRAWN. WILL CON TO MONITOR
[2023-09-07 05:28] VITALS: BP 111/59
[2023-09-07 05:34] LABS: BASOPHILS ABSOLUTE AUTO 0.08 K/mm3 (0.00-0.23); BASOPHILS PERCENT AUTO 1 % (0-2); EOSINOPHILS ABSOLUTE AUTO 0.22 K/mm3 (0.00-0.68); EOSINOPHILS PERCENT AUTO 2 % (0-6); Hematocrit 32.5 % (33.0-51.0); Hemoglobin 10.3 g/dL (11.5-16.0); IMMATURE GRAN ABSOLUTE AUTO 0.16 K/mm3 (0.00-0.10); IMMATURE GRAN PERCENT AUTO 2 % (0-1); LYMPHOCYTES ABSOLUTE AUTO 2.87 K/mm3 (0.84-5.20); LYMPHOCYTES PERCENT AUTO 27 % (21-46); MONOCYTES PERCENT AUTO 5 % (4-13); Mean Corpuscular HGB 29.2 pg (26.0-34.0); Mean Corpuscular HGB Conc 31.7 g/dL (31.5-36.5); Mean Corpuscular Volume 92 fL (80-100); Mean Platelet Volume 10.2 fL (9.1-12.4); NEUTROPHILS ABSOLUTE AUTO 6.79 K/mm3 (1.96-9.15); NEUTROPHILS PERCENT AUTO 64 % (41-73); Platelet Count 334 K/mm3 (150-400); RDW Coefficient Variation 15.1 % (11.7-14.2); Red Blood Cell Count 3.53 M/mm3 (3.80-5.20); White Blood Cell Count 10.62 K/mm3 (4.00-11.30)
[2023-09-07 06:15] LABS: Albumin, Blood 3.3 g/dL (3.4-5.0); Albumin/Globulin Ratio 0.9 (0.8-1.8); Bilirubin, Total 0.4 mg/dL (0.1-1.0); Bun/Creatinine Ratio 19.6 (12.0-20.0); Calcium, Blood 8.8 mg/dL (8.5-10.1); Creatinine, Blood 2.81 mg/dL (0.40-1.00); Globulin, Blood 3.7 g/dL (2.2-4.0); Magnesium, Blood 1.8 mg/dL (1.6-2.4); Phosphorus, Blood 6.2 mg/dL (2.5-4.9); Potassium, Blood 4.4 mmol/L (3.5-5.5)
[2023-09-07 07:29] VITALS: BP 109/69
[2023-09-07 14:33] LABS: Protein, Urine Quantitative 17.4 mg/dL (0.0-11.9)
[2023-09-07 16:12] VITALS: BP 105/61
--- NOTE | 2023-09-07 16:31 | NUR ---
SHIFT SUMMARY; OK FOR PICC LINE PLACEMENT. PER MD HE FEELS BENEFITS OF PICC OUTWEIGH RISK. PATIENT IS INSISTING ON GOING HOME WHETHER PICC LINE IN PLACE OR NOT. PROMISE PATTERSON CHARGE NOTIFIED AND SHE WILL SEE WHAT SHE CAN DO TO MAKE THIS HAPPEN.
[2023-09-07 20:23] VITALS: BP 105/62
[2023-09-07 21:16] LABS: Eosinophils-Raw #,Urine 0
--- NOTE | 2023-09-08 04:29 | NUR ---
REPORT RECEIVED VERIFIED, PT VERY UPSET THAT SHE IS STILL HERE AND NO ONE TO PLACE A PICC LINE. PT WOULD LIKE TO SLEEP UNINTERRUPTED AND WILL CALL IF NEEDING ANY ASSISTENCE. 0430 PT AWAKE, LABS DRAWN VSS, IN BETTER SPIRITS BECAUSE SHE SLEPT WELL. WILL CONT TO MONITOR PT
[2023-09-08 04:38] VITALS: BP 118/58
[2023-09-08 05:08] LABS: BASOPHILS ABSOLUTE AUTO 0.07 K/mm3 (0.00-0.23); BASOPHILS PERCENT AUTO 1 % (0-2); EOSINOPHILS ABSOLUTE AUTO 0.23 K/mm3 (0.00-0.68); EOSINOPHILS PERCENT AUTO 3 % (0-6); Hematocrit 31.4 % (33.0-51.0); Hemoglobin 9.6 g/dL (11.5-16.0); IMMATURE GRAN ABSOLUTE AUTO 0.14 K/mm3 (0.00-0.10); IMMATURE GRAN PERCENT AUTO 2 % (0-1); LYMPHOCYTES ABSOLUTE AUTO 2.54 K/mm3 (0.84-5.20); LYMPHOCYTES PERCENT AUTO 28 % (21-46); MONOCYTES ABSOLUTE AUTO 0.52 K/mm3 (0.16-1.47); MONOCYTES PERCENT AUTO 6 % (4-13); Mean Corpuscular HGB 28.7 pg (26.0-34.0); Mean Corpuscular HGB Conc 30.6 g/dL (31.5-36.5); Mean Corpuscular Volume 94 fL (80-100); Mean Platelet Volume 9.8 fL (9.1-12.4); NEUTROPHILS ABSOLUTE AUTO 5.63 K/mm3 (1.96-9.15); NEUTROPHILS PERCENT AUTO 62 % (41-73); Platelet Count 293 K/mm3 (150-400); RDW Coefficient Variation 15.3 % (11.7-14.2); Red Blood Cell Count 3.34 M/mm3 (3.80-5.20); White Blood Cell Count 9.13 K/mm3 (4.00-11.30)
[2023-09-08 05:45] LABS: Albumin/Globulin Ratio 0.8 (0.8-1.8); Bilirubin, Total 0.3 mg/dL (0.1-1.0); Bun/Creatinine Ratio 21.1 (12.0-20.0); Calcium, Blood 8.5 mg/dL (8.5-10.1); Creatinine, Blood 2.65 mg/dL (0.40-1.00); Globulin, Blood 3.6 g/dL (2.2-4.0); Magnesium, Blood 1.6 mg/dL (1.6-2.4); Potassium, Blood 4.7 mmol/L (3.5-5.5); Total Protein, Blood 6.6 g/dL (6.4-8.2)
[2023-09-08 07:32] VITALS: BP 116/85
[2023-09-08] MEDS ORDERED: ELIQUIS2.5 MG PO (12:32)
[2023-09-08] MEDS ORDERED: MICAFUNGIN IV (12:34)
[2023-09-08] MEDS ORDERED: OXAYDO5 M1 PO (12:39)
[2023-09-09 15:09] LABS: IMMUNOGLOBULIN A, QN, SERUM 355 mg/dL (64-422); IMMUNOGLOBULIN G, QN, SERUM 727 mg/dL (586-1602); IMMUNOGLOBULIN M, QN, SERUM 41 mg/dL (26-217)
== END 2023-09-08 14:17 | disposition home or self-care (01) | DRG 314 ==
LOC: ER 08:15 → MEDS 11:28 → PCU 11:28 → ER 12:40 → PCU 13:23 → MEDS 09-01 16:09 → ENPENDDIS 09-08 10:58 → MEDS 09-08 14:17
PROVIDERS: Emergency Medicine; Family Medicine; Hospitalist; Internal Medicine; Internal Medicine Nephrology; ADMIT Family Medicine
PROC: B24BZZZ Ultrasonography of Heart with Aorta (ICD-10-PCS; 2023-08-27)
PROC: 0JPT0WZ Removal of Totally Implantable Vascular Access Device from Trunk Subcutaneous Tissue and Fascia, Open Approach (ICD-10-PCS; principal; 2023-08-30)
PROC: 02PYX3Z Removal of Infusion Device from Great Vessel, External Approach (ICD-10-PCS; 2023-08-30)
PROC: B245ZZZ Ultrasonography of Left Heart (ICD-10-PCS; 2023-08-31)
PROC: 02HV33Z Insertion of Infusion Device into Superior Vena Cava, Percutaneous Approach (ICD-10-PCS; 2023-09-08)
DX: T80.211A Bloodstream infection due to central venous catheter, initial encounter (principal); J18.9 Pneumonia, unspecified organism; B49 Unspecified mycosis; N18.4 Chronic kidney disease, stage 4 (severe); N17.9 Acute kidney failure, unspecified; E87.20 Acidosis, unspecified; J44.0 Chronic obstructive pulmonary disease with (acute) lower respiratory infection; Z66 Do not resuscitate; E87.6 Hypokalemia; I48.0 Paroxysmal atrial fibrillation; R91.8 Other nonspecific abnormal finding of lung field; E86.0 Dehydration; I51.89 Other ill-defined heart diseases; G89.4 Chronic pain syndrome; I44.7 Left bundle-branch block, unspecified; D63.1 Anemia in chronic kidney disease; F32.A Depression, unspecified; E83.42 Hypomagnesemia; G62.9 Polyneuropathy, unspecified; E87.5 Hyperkalemia; Z90.49 Acquired absence of other specified parts of digestive tract; Z93.2 Ileostomy status; Z90.6 Acquired absence of other parts of urinary tract; Z88.1 Allergy status to other antibiotic agents; Z79.891 Long term (current) use of opiate analgesic; Z90.2 Acquired absence of lung [part of]; Z93.6 Other artificial openings of urinary tract status; Z87.891 Personal history of nicotine dependence; Z11.52 Encounter for screening for COVID-19; Z85.038 Personal history of other malignant neoplasm of large intestine; Z85.43 Personal history of malignant neoplasm of ovary; Z85.118 Personal history of other malignant neoplasm of bronchus and lung
CPT/HCPCS: 0241U; 36415; 36569; 71045; 71250; 74176; 80048; 80053; 80069; 82378; 82550; 82947; 83605; 83735; 83880; 84100; 84145; 84156; 84443; 84484; 84550; 85014; 85018; 85025; 85049; 85520; 85610; 85651; 85730; 86140; 86304; 87040; 87205; 93005; 93010; 93306; 93308; 93312; 93325; 94760; 94762; 96365; 96366; 96368; 97165; 97535; 99285-25; A9270; C1751; J0456; J0696; J0881; J1644; J1815; J2248; J2704; J3475; J7030; J7050

== ENCOUNTER → 2023-09-16 | Outpatient (CLI) | payer MEDICARE ==
[~2023-09-16] MED LIST changes: +ELIQUIS2.5 MG PO; +MAGNESIUM SULFATE IV; +MICAFUNGIN IV; +OXAYDO5 M1 PO
[2023-09-16 18:59] LABS: BASOPHILS ABSOLUTE AUTO 0.06 K/mm3 (0.00-0.23); BASOPHILS PERCENT AUTO 1 % (0-2); EOSINOPHILS ABSOLUTE AUTO 0.15 K/mm3 (0.00-0.68); EOSINOPHILS PERCENT AUTO 2 % (0-6); Hematocrit 30.8 % (33.0-51.0); Hemoglobin 9.7 g/dL (11.5-16.0); IMMATURE GRAN ABSOLUTE AUTO 0.02 K/mm3 (0.00-0.10); IMMATURE GRAN PERCENT AUTO 0 % (0-1); LYMPHOCYTES PERCENT AUTO 32 % (21-46); MONOCYTES ABSOLUTE AUTO 0.29 K/mm3 (0.16-1.47); MONOCYTES PERCENT AUTO 4 % (4-13); Mean Corpuscular HGB 29.6 pg (26.0-34.0); Mean Corpuscular HGB Conc 31.5 g/dL (31.5-36.5); Mean Corpuscular Volume 94 fL (80-100); Mean Platelet Volume 11.1 fL (9.1-12.4); NEUTROPHILS ABSOLUTE AUTO 4.04 K/mm3 (1.96-9.15); NEUTROPHILS PERCENT AUTO 61 % (41-73); Platelet Count 225 K/mm3 (150-400); RDW Coefficient Variation 15.8 % (11.7-14.2); RDW Standard Deviation 54.4 fL (35.1-46.3); Red Blood Cell Count 3.28 M/mm3 (3.80-5.20); White Blood Cell Count 6.66 K/mm3 (4.00-11.30)
[2023-09-16 20:31] LABS: Bun/Creatinine Ratio 18.4 (12.0-20.0); Creatinine, Blood 2.34 mg/dL (0.40-1.00); Potassium, Blood 4.3 mmol/L (3.5-5.5)
== END ==
LOC: LAB SHORT 18:04 → LAB 18:04
PROVIDERS: Nurse Practitioner Family
DX: J16.8 Pneumonia due to other specified infectious organisms (principal); B49 Unspecified mycosis
CPT/HCPCS: 80048; 85025

== ENCOUNTER → 2023-09-23 | Outpatient (CLI) | payer MEDICARE ==
[2023-09-23 14:31] LABS: BASOPHILS ABSOLUTE AUTO 0.04 K/mm3 (0.00-0.23); BASOPHILS PERCENT AUTO 1 % (0-2); EOSINOPHILS ABSOLUTE AUTO 0.28 K/mm3 (0.00-0.68); EOSINOPHILS PERCENT AUTO 4 % (0-6); Hematocrit 33.1 % (33.0-51.0); Hemoglobin 10.6 g/dL (11.5-16.0); IMMATURE GRAN ABSOLUTE AUTO 0.02 K/mm3 (0.00-0.10); IMMATURE GRAN PERCENT AUTO 0 % (0-1); LYMPHOCYTES ABSOLUTE AUTO 2.35 K/mm3 (0.84-5.20); LYMPHOCYTES PERCENT AUTO 31 % (21-46); MONOCYTES PERCENT AUTO 4 % (4-13); Mean Corpuscular HGB 29.5 pg (26.0-34.0); Mean Corpuscular Volume 92 fL (80-100); Mean Platelet Volume 11.3 fL (9.1-12.4); NEUTROPHILS ABSOLUTE AUTO 4.64 K/mm3 (1.96-9.15); NEUTROPHILS PERCENT AUTO 61 % (41-73); Platelet Count 197 K/mm3 (150-400); RDW Coefficient Variation 15.3 % (11.7-14.2); RDW Standard Deviation 51.9 fL (35.1-46.3); Red Blood Cell Count 3.59 M/mm3 (3.80-5.20); White Blood Cell Count 7.63 K/mm3 (4.00-11.30)
[2023-09-23 14:42] LABS: Bun/Creatinine Ratio 17.3 (12.0-20.0); Calcium, Blood 8.5 mg/dL (8.5-10.1); Creatinine, Blood 2.14 mg/dL (0.40-1.00); Potassium, Blood 5.1 mmol/L (3.5-5.5)
== END ==
LOC: LAB SHORT 11:05 → LAB 11:05
PROVIDERS: Family Medicine
DX: B49 Unspecified mycosis (principal); Z79.2 Long term (current) use of antibiotics
CPT/HCPCS: 80048; 85025

== ENCOUNTER → 2023-09-30 | Outpatient (CLI) | payer MEDICARE ==
[2023-09-30 19:55] LABS: BASOPHILS ABSOLUTE AUTO 0.02 K/mm3 (0.00-0.23); BASOPHILS PERCENT AUTO 0 % (0-2); EOSINOPHILS ABSOLUTE AUTO 0.01 K/mm3 (0.00-0.68); EOSINOPHILS PERCENT AUTO 0 % (0-6); Hematocrit 29.5 % (33.0-51.0); Hemoglobin 9.3 g/dL (11.5-16.0); IMMATURE GRAN ABSOLUTE AUTO 0.04 K/mm3 (0.00-0.10); IMMATURE GRAN PERCENT AUTO 1 % (0-1); LYMPHOCYTES ABSOLUTE AUTO 0.59 K/mm3 (0.84-5.20); LYMPHOCYTES PERCENT AUTO 10 % (21-46); MONOCYTES ABSOLUTE AUTO 0.26 K/mm3 (0.16-1.47); MONOCYTES PERCENT AUTO 4 % (4-13); Mean Corpuscular HGB 29.5 pg (26.0-34.0); Mean Corpuscular HGB Conc 31.5 g/dL (31.5-36.5); Mean Corpuscular Volume 94 fL (80-100); Mean Platelet Volume 12.1 fL (9.1-12.4); NEUTROPHILS ABSOLUTE AUTO 5.25 K/mm3 (1.96-9.15); NEUTROPHILS PERCENT AUTO 85 % (41-73); Platelet Count 86 K/mm3 (150-400); RDW Coefficient Variation 15.4 % (11.7-14.2); Red Blood Cell Count 3.15 M/mm3 (3.80-5.20); White Blood Cell Count 6.17 K/mm3 (4.00-11.30)
[2023-09-30 21:45] LABS: Albumin, Blood 2.7 g/dL (3.4-5.0); Albumin/Globulin Ratio 0.8 (0.8-1.8); Bilirubin, Total 0.7 mg/dL (0.1-1.0); Calcium, Blood 8.4 mg/dL (8.5-10.1); Creatinine, Blood 2.99 mg/dL (0.40-1.00); Globulin, Blood 3.2 g/dL (2.2-4.0); Potassium, Blood 4.7 mmol/L (3.5-5.5); Total Protein, Blood 5.9 g/dL (6.4-8.2)
== END | disposition home or self-care (01) ==
LOC: LAB 12:20 → LAB SHORT 12:20
PROVIDERS: Family Medicine
DX: N18.4 Chronic kidney disease, stage 4 (severe) (principal); Z79.2 Long term (current) use of antibiotics
CPT/HCPCS: 80053; 85025

== ENCOUNTER → 2023-10-07 | Outpatient (CLI) | payer MEDICARE ==
[2023-10-07 19:07] LABS: BASOPHILS ABSOLUTE AUTO 0.06 K/mm3 (0.00-0.23); BASOPHILS PERCENT AUTO 1 % (0-2); EOSINOPHILS PERCENT AUTO 1 % (0-6); Hematocrit 33.8 % (33.0-51.0); Hemoglobin 10.6 g/dL (11.5-16.0); IMMATURE GRAN ABSOLUTE AUTO 0.54 K/mm3 (0.00-0.10); IMMATURE GRAN PERCENT AUTO 4 % (0-1); LYMPHOCYTES ABSOLUTE AUTO 1.58 K/mm3 (0.84-5.20); LYMPHOCYTES PERCENT AUTO 12 % (21-46); MONOCYTES ABSOLUTE AUTO 0.63 K/mm3 (0.16-1.47); MONOCYTES PERCENT AUTO 5 % (4-13); Mean Corpuscular HGB 28.8 pg (26.0-34.0); Mean Corpuscular HGB Conc 31.4 g/dL (31.5-36.5); Mean Corpuscular Volume 92 fL (80-100); Mean Platelet Volume 10.3 fL (9.1-12.4); NEUTROPHILS ABSOLUTE AUTO 10.12 K/mm3 (1.96-9.15); NEUTROPHILS PERCENT AUTO 78 % (41-73); Platelet Count 316 K/mm3 (150-400); RDW Coefficient Variation 15.3 % (11.7-14.2); RDW Standard Deviation 50.9 fL (35.1-46.3); Red Blood Cell Count 3.68 M/mm3 (3.80-5.20); White Blood Cell Count 13.03 K/mm3 (4.00-11.30)
[2023-10-07 19:08] LABS: Bun/Creatinine Ratio 11.2 (12.0-20.0); Calcium, Blood 8.5 mg/dL (8.5-10.1); Creatinine, Blood 2.14 mg/dL (0.40-1.00); Potassium, Blood 4.1 mmol/L (3.5-5.5)
== END | disposition home or self-care (01) ==
LOC: LAB 18:09 → LAB SHORT 18:09
PROVIDERS: Family Medicine
DX: Z51.81 Encounter for therapeutic drug level monitoring (principal); Z79.2 Long term (current) use of antibiotics
CPT/HCPCS: 80048; 85025

== ENCOUNTER → 2023-10-14 | Outpatient (CLI) | payer MEDICARE ==
[2023-10-14 14:26] LABS: BASOPHILS ABSOLUTE AUTO 0.03 K/mm3 (0.00-0.23); BASOPHILS PERCENT AUTO 0 % (0-2); EOSINOPHILS ABSOLUTE AUTO 0.08 K/mm3 (0.00-0.68); EOSINOPHILS PERCENT AUTO 1 % (0-6); Hematocrit 36.1 % (33.0-51.0); Hemoglobin 11.1 g/dL (11.5-16.0); IMMATURE GRAN ABSOLUTE AUTO 0.11 K/mm3 (0.00-0.10); IMMATURE GRAN PERCENT AUTO 1 % (0-1); LYMPHOCYTES ABSOLUTE AUTO 1.04 K/mm3 (0.84-5.20); LYMPHOCYTES PERCENT AUTO 9 % (21-46); MONOCYTES ABSOLUTE AUTO 0.53 K/mm3 (0.16-1.47); MONOCYTES PERCENT AUTO 5 % (4-13); Mean Corpuscular HGB 27.7 pg (26.0-34.0); Mean Corpuscular HGB Conc 30.7 g/dL (31.5-36.5); Mean Corpuscular Volume 90 fL (80-100); NEUTROPHILS ABSOLUTE AUTO 9.82 K/mm3 (1.96-9.15); NEUTROPHILS PERCENT AUTO 85 % (41-73); RDW Coefficient Variation 15.4 % (11.7-14.2); RDW Standard Deviation 50.9 fL (35.1-46.3); Red Blood Cell Count 4.01 M/mm3 (3.80-5.20); White Blood Cell Count 11.61 K/mm3 (4.00-11.30)
[2023-10-14 14:46] LABS: Platelet Count 187 K/mm3 (150-400)
[2023-10-14 14:47] LABS: Mean Platelet Volume 10.5 fL (9.1-12.4)
[2023-10-14 15:06] LABS: Calcium, Blood 8.5 mg/dL (8.5-10.1); Creatinine, Blood 2.67 mg/dL (0.40-1.00); Potassium, Blood 4.4 mmol/L (3.5-5.5)
== END ==
LOC: LAB 12:54 → LAB SHORT 12:54
PROVIDERS: Nurse Practitioner Family
DX: J16.8 Pneumonia due to other specified infectious organisms (principal); Z79.2 Long term (current) use of antibiotics
CPT/HCPCS: 80048; 85025

== ENCOUNTER → 2023-10-21 | Outpatient (CLI) | payer MEDICARE ==
[2023-10-21 15:36] LABS: Bun/Creatinine Ratio 16.5 (12.0-20.0); Calcium, Blood 8.4 mg/dL (8.5-10.1); Creatinine, Blood 2.55 mg/dL (0.40-1.00); Potassium, Blood 4.8 mmol/L (3.5-5.5)
== END | disposition home or self-care (01) ==
LOC: LAB SHORT 13:49 → LAB 13:49
PROVIDERS: Nurse Practitioner Family
DX: B49 Unspecified mycosis (principal); Z79.2 Long term (current) use of antibiotics
CPT/HCPCS: 80048

== ENCOUNTER 2023-10-29 11:21 | Emergency (ER) | payer MEDICARE ==
[~2023-10-29] VITALS: Ht 170.2 cm; Wt 54.4 kg
[2023-10-29 11:58] LABS: BASOPHILS ABSOLUTE AUTO 0.05 K/mm3 (0.00-0.23); BASOPHILS PERCENT AUTO 1 % (0-2); EOSINOPHILS PERCENT AUTO 2 % (0-6); Hematocrit 33.7 % (33.0-51.0); Hemoglobin 10.2 g/dL (11.5-16.0); IMMATURE GRAN ABSOLUTE AUTO 0.33 K/mm3 (0.00-0.10); IMMATURE GRAN PERCENT AUTO 3 % (0-1); LYMPHOCYTES ABSOLUTE AUTO 1.22 K/mm3 (0.84-5.20); LYMPHOCYTES PERCENT AUTO 13 % (21-46); MONOCYTES ABSOLUTE AUTO 0.49 K/mm3 (0.16-1.47); MONOCYTES PERCENT AUTO 5 % (4-13); Mean Corpuscular HGB 26.8 pg (26.0-34.0); Mean Corpuscular HGB Conc 30.3 g/dL (31.5-36.5); Mean Corpuscular Volume 89 fL (80-100); Mean Platelet Volume 9.7 fL (9.1-12.4); NEUTROPHILS ABSOLUTE AUTO 7.34 K/mm3 (1.96-9.15); NEUTROPHILS PERCENT AUTO 76 % (41-73); NRBC ABSOLUTE 0.02 K/mm3 (0.00-0.02); NRBC Auto 0.2 /100 WBC (0.0-0.2); Platelet Count 218 K/mm3 (150-400); RDW Coefficient Variation 15.4 % (11.7-14.2); RDW Standard Deviation 48.9 fL (35.1-46.3); Red Blood Cell Count 3.81 M/mm3 (3.80-5.20); White Blood Cell Count 9.63 K/mm3 (4.00-11.30)
[2023-10-29 12:09] LABS: Source, Urine Nephrostomy
[2023-10-29 12:11] LABS: Appearance, Urine Hazy (Clear); Bilirubin, Urine Neg (Neg); Blood, Urine 4+ (Neg); Color, Urine Yellow (P-Yellow); Glucose Qualitative, Urine Neg (Neg); Ketones, Urine Neg (Neg); Leukocyte Esterase, Urine 2+ (Neg); Nitrite, Urine Neg (Neg); Protein, Urine 2+ (Neg); Specific Gravity, Urine 1.015 (1.003-1.022); Urobilinogen, Urine NORM (Normal)
[2023-10-29 12:18] LABS: Red Blood Cells, Urine 25-50 /hpf (0-2); Squamous Epithelial Cells Few /hpf (Few); White Blood Cells, Urine 25-50 /hpf (0-5)
[2023-10-29 12:19] LABS: Bacteria Mod /hpf; Mucus Light (0-Heavy)
[2023-10-29 12:20] LABS: Hyaline Casts 0-2 /lpf (0-2)
[2023-10-29 12:20] LABS: Albumin, Blood 2.7 g/dL (3.4-5.0); Albumin/Globulin Ratio 0.7 (0.8-1.8); Bilirubin, Total 0.4 mg/dL (0.1-1.0); Bun/Creatinine Ratio 12.7 (12.0-20.0); Calcium, Blood 8.5 mg/dL (8.5-10.1); Creatinine, Blood 2.59 mg/dL (0.40-1.00); Globulin, Blood 3.7 g/dL (2.2-4.0); Potassium, Blood 4.4 mmol/L (3.5-5.5); Total Protein, Blood 6.4 g/dL (6.4-8.2)
[2023-10-29 14:00] VITALS: BP 121/58
== END 2023-10-29 14:07 | disposition home or self-care (01) ==
LOC: ER 11:21
PROVIDERS: Emergency Medicine
DX: M54.50 Low back pain, unspecified (principal); Z85.038 Personal history of other malignant neoplasm of large intestine; Z93.3 Colostomy status; I12.9 Hypertensive chronic kidney disease with stage 1 through stage 4 chronic kidney disease, or unspecified chronic kidney disease; N18.4 Chronic kidney disease, stage 4 (severe); J44.9 Chronic obstructive pulmonary disease, unspecified; Z87.891 Personal history of nicotine dependence; Z79.01 Long term (current) use of anticoagulants; Z79.899 Other long term (current) drug therapy; Z88.1 Allergy status to other antibiotic agents
CPT/HCPCS: 71045; 74176; 80053; 81001; 85025; 96374; 96375; 99284-25; J2270; J2405

== ENCOUNTER 2023-10-31 11:11 | Observation (INO) | payer MEDICARE ==
[~2023-10-31] VITALS: Ht 175.3 cm; Wt 61.2 kg
[2023-10-31 12:49] LABS: BASOPHILS ABSOLUTE AUTO 0.04 K/mm3 (0.00-0.23); BASOPHILS PERCENT AUTO 0 % (0-2); EOSINOPHILS ABSOLUTE AUTO 0.01 K/mm3 (0.00-0.68); EOSINOPHILS PERCENT AUTO 0 % (0-6); Hematocrit 33.3 % (33.0-51.0); Hemoglobin 10.3 g/dL (11.5-16.0); IMMATURE GRAN ABSOLUTE AUTO 0.52 K/mm3 (0.00-0.10); IMMATURE GRAN PERCENT AUTO 4 % (0-1); LYMPHOCYTES ABSOLUTE AUTO 0.81 K/mm3 (0.84-5.20); LYMPHOCYTES PERCENT AUTO 6 % (21-46); MONOCYTES ABSOLUTE AUTO 0.27 K/mm3 (0.16-1.47); MONOCYTES PERCENT AUTO 2 % (4-13); Mean Corpuscular HGB Conc 30.9 g/dL (31.5-36.5); Mean Corpuscular Volume 87 fL (80-100); Mean Platelet Volume 9.5 fL (9.1-12.4); NEUTROPHILS PERCENT AUTO 87 % (41-73); NRBC ABSOLUTE 0.03 K/mm3 (0.00-0.02); NRBC Auto 0.2 /100 WBC (0.0-0.2); Platelet Count 240 K/mm3 (150-400); RDW Coefficient Variation 15.6 % (11.7-14.2); RDW Standard Deviation 48.9 fL (35.1-46.3); Red Blood Cell Count 3.81 M/mm3 (3.80-5.20); White Blood Cell Count 12.65 K/mm3 (4.00-11.30)
[2023-10-31 13:17] LABS: Base Excess Venous -16.7 mmol/L; Bicarbonate Venous 12.5 mmol/L (24.0-30.0); PCO2 Venous 36.8 mmHg (38-42)
[2023-10-31 13:18] LABS: pH Blood Venous 7.14 (7.34-7.37)
[2023-10-31 13:20] LABS: Magnesium, Blood 2.5 mg/dL (1.6-2.4)
[2023-10-31 13:21] LABS: Albumin, Blood 2.6 g/dL (3.4-5.0); Albumin/Globulin Ratio 0.6 (0.8-1.8); Bilirubin, Total 0.5 mg/dL (0.1-1.0); Bun/Creatinine Ratio 12.3 (12.0-20.0); Calcium, Blood 8.7 mg/dL (8.5-10.1); Creatinine, Blood 2.69 mg/dL (0.40-1.00); Globulin, Blood 4.1 g/dL (2.2-4.0); Potassium, Blood 5.1 mmol/L (3.5-5.5); Total Protein, Blood 6.7 g/dL (6.4-8.2)
[2023-10-31 14:39] LABS: Source, Urine Urostomy Bag
[2023-10-31 15:05] LABS: Appearance, Urine Cloudy (Clear); Bilirubin, Urine Neg (Neg); Blood, Urine 4+ (Neg); Color, Urine Yellow (P-Yellow); Glucose Qualitative, Urine Neg (Neg); Ketones, Urine 2+ (Neg); Leukocyte Esterase, Urine 3+ (Neg); Nitrite, Urine Neg (Neg); Protein, Urine 3+ (Neg); Urobilinogen, Urine NORM (Normal)
[2023-10-31 15:27] LABS: Bacteria Many /hpf; Squamous Epithelial Cells Few /hpf (Few); White Blood Cells, Urine 25-50 /hpf (0-5)
[2023-10-31 15:28] LABS: Granular Casts 0-2 /lpf (0); Hyaline Casts 0-2 /lpf (0-2)
[2023-10-31] MEDS ORDERED: TIZANIDINE HCL2 M1 PO (18:41)
[2023-10-31] MEDS ORDERED: MAGNESIUM1 GM/100 M IV (18:43)
[2023-10-31 19:27] VITALS: BP 99/52
--- NOTE | 2023-10-31 23:20 | NUR ---
PATIENT CAME IN FROM ED PER STRETCHER. TRASFERRED TO BED COMFORTABLY, WEIGHT TAKEN AND RECORDED, 2-PERSON SKIN CHECK DONE. FAMILY MEMBERS CAME IN. ON COMFORT CARE. WILL CONTINUE TO ADDRESS PATIENT'S NEEDS.
--- NOTE | 2023-11-01 05:04 | NUR ---
PATIENT IS ALERT AND ORIENTED X1 (NAME ONLY). WITH ILEOSTOMY BAG AND UROSTOMY BAG DRAINING WELL. WITH PIV LINE ON RIGHT WRIST, 3 LUMEN PICC LINE ON LEFT UPPER ARM PATENT AND INTACT. SLEPT WELL. WAS ABLE TO TAKE CRUSHED PILLS WITH APPLE SAUCE. NO VERBALIZED COMPLAINTS. FAMILY DECIDED TO PUT PATIENT ON COMFORT CARE.
--- NOTE | 2023-11-01 15:50 | NUR ---
SHIFT SUMMARY: PATIENT IS AWAKE, ALERT AND ORIENTED TO SELF AND FAMILY AT BEDSIDE. PATIENT ON COMFORT CARE MEASURES. PATIENT REFUSED HER MEALS AND ONLY TAKE SIPS OF H2O T/O THE DAY. PATIENT REPORTS PAIN "ALL OVER", MEDICATED c PRN COMFORT CARE PAIN MEDS c GOOD EFFECT. ORAL CARE, REPOSITIONED T/O SHIFT. RR IS EVEN AND UNLABORED. PATIENT FAMILY AT BEDSIDE OFF AND ON T/O SHIFT. PICCLINE TO L ARM AND PIV TO R WRIST SALINE LOCKED. BED ALARM ON FOR SAFETY. CALL LIGHT IN REACH.
--- NOTE | 2023-11-01 18:18 | NUR ---
No signs of distress pt comfortable family at bedside.
--- NOTE | 2023-11-02 04:29 | NUR ---
SHIFT SUMMARY NIA WAS SLEEPING BUT ROUSABLE, AND ORIENTED X 1-2 AT START OF SHIFT. NO CHANGES IN CONDITION OR ACUTE EVENTS TONIGHT. PT SLEPT THROUGH MOST OF THE SHIFT. SHE DID REQUIRE MEDICATION FOR PAIN. PT FREQUENTLY REPOSITIONED. PT RESTING IN BED AT A LOW POSITION WITH THE CALL LIGHT IN REACH. WILL CONTINUE TO MONITOR.
--- NOTE | 2023-11-02 16:23 | NUR ---
SHIFT SUMMARY: NO CHANGES IN PATIENT CONDITION THIS SHIFT. PATIENT STILL ON COMFORT CARE MEASURES. PATIENT RECEIVED BEDBATH, ORAL CARE AND LINEN CHANGED TODAY. PATIENT MEDICATED FOR PAIN PER ORDER FOR COMFORT AND REPOSITIONED T/O SHIFT c GOOD EFFECT. MIPELEX DRESSING PLACED TO COCCYX FOR PROTECTION. PATIENT HAS BEEN SLEEPING OFF AND ON T/O SHIFT. PATIENT APPEARS TO BE COMFORTABLE, RR IS EVEN AND UNLABORED. PATIENT FAMILY VISITING OFF AND ON T/O THE DAY. PATIENT HAS PICC LINE TO L ARM AND PIV TO R WRIST SALINE LOCKED. BED ALARM ON FOR SAFETY. CALL LIGHT IN REACH.
--- NOTE | 2023-11-03 04:49 | NUR ---
SHIFT SUMMARY NIA WAS ASLEEP AND NOT ORIENTED AT ALL AT START OF SHIFT. PT CONDITION IS UNCHANGED FROM PREVIOUS NIGHT. PT RESTING COMFORTABLY AT THIS TIME AND DENYING NEED FOR PAIN MEDS. FREQUENT PT REPOSITIONING. PT ASLEEP IN BED AT A LOW POSITION, WILL CONINUE TO MONITOR
--- NOTE | 2023-11-03 17:43 | NUR ---
SHIFT SUMMARY: PATIENT ON COMFORT CARE MEASURE. PATIENT CONDITION HAS CHANGED THIS SHIFT. PATIENT ONLY RESPONDS TO VERBAL STIMULI AND c REPOSITIONING. PATIENT HAS EPISODE OF BREATHING PAUSES T/O SHIFT. PATIENT HAS MOD SECRETIONS AND GURGLING SOUNDS, SCOPALAMINE PATCH PLACED TO R SIDE OF EAR, GIVEN ATROPINE DROPS X2 FOR SECRETION c MOD EFFECT. PATIENT MEDICATED c SL ROXANOL X3 T/O SHIFT FOR PAIN AND AIR HUNGER c GREAT EFFECT. ORAL CARE AND REPOSITIONED T/O SHIFT. PATIENT APPEARS TO BE RESTING COMFORTABLY IN BED c NO SIGNS OF GRIMACES OR DISTRESS. FAMILY AT BEDSIDE ALL DAY AND LEFT AROUND 1600. PATIENT HAS NO PO INTAKE AND MINIMAL OUTPUT THIS SHIFT. PATIENT HAS PICC LINE TO L ARM AND PIV TO R WRIST. SALINE LOCKED. CALL LIGHT IN REACH.
--- NOTE | 2023-11-04 04:19 | NUR ---
SHIFT SUMMARY NIA WAS UNRESPONSIVE FROM START OF SHIFT, THIS IS A NOTABLE CHANGE FROM PREVIOUS NIGHT. SHE IS PRODUCING MORE SECRETIONS NOW, AND HAVING INTERMITTENT PAUSES IN BREATHING, ESPECIALLY DURING PT CARE. PT MEDICATED FOR SECRETIONS AND AIR HUNGER. SHE IS RESTING EASILY IN BED AT THIS TIME WITH NO S/S OF DISCOMFORT.
--- NOTE | 2023-11-04 14:52 | NUR ---
SHIFT SUMMARY PT REMAINS NONRESPONSIVE ON COMFORT CARE. PT MEDICATED X1 TO PRESENT AFTER REPOSITIONING FOR MOANING. RESTING QUIETLY AGAIN AT THIS TIME. DR DUMONT IN TO CK ON PT THIS AM. IRINA IN TO VISIT FOR A COUPLE OF HOURS. DAUGHTER CALLED TO CK ON PT THIS AM. FAMILY REQUESTING TO BE NOTIFIED IF/WHEN PT PASSES TO OBTAIN STUFFED ANIMAL AND HOME PILLOW. NUMBERS ON WHITE BOARD TO BE USED. NOT NUMBERS IN CHART. DAUGHTER REQUESTING [facility] IN [place] WHEN NEEDED.
--- NOTE | 2023-11-05 04:32 | NUR ---
SHIFT SUMMARY PT UNRESPONSIVE ENTIRE SHIFT. NO PO INTAKE. PT APPEARS COMFORTBLY RESTING IN BED. Q2 HOUR TURNS/REPOSITIONING. ORAL CARE PROVIDED. ILEOSTOMY OUTPUT MINIMAL. LITTLE TO NO NEPHROSTOMY OUTPUT. PT DAUGHTER CALLED FOR UPDATE THIS AM. PT RESTING IN BED. CALL LIGHT WITHIN REACH WITH BED IN LOWEST POSITION. WILL CONTINUE TO MONITOR.
--- NOTE | 2023-11-05 14:51 | NUR ---
SHIFT SUMMARY PT REMAINS NONRESPONSIVE ON COMFORT CARE. MEDICATED PER EMAR FOR AIR HUNGER AND MOANS WITH REPOSITIONING. BED BATH GIVEN TODAY FOR COMFORT. PT'S FAMILY IN THIS AFTERNOON FOR A SHORT WHILE. NO FURTHER CHANGES TODAY TO PRESENT. FAMILY TO BE NOTIFIED WHEN PT PASSES.
--- NOTE | 2023-11-05 17:52 | NUR ---
1735 PT PASSED. TEJAL PATTERSON TO NOTIFY FAMILY; CHRISTOPHE DAUGHTER, HEIDI CAT, AND NRS JUKE BOX MECHANIC ERIN.
--- NOTE | 2023-11-05 18:00 | NUR ---
Went to check in on patient at 173. Found patient without a pulse and not breathing. Spoke with Delfina, beside RN, who states staff were just recently in her room repositioning her. TOD 1734. Called Dr. Fields and pt's dtr Anayeli to update them. Offered condolences to Anayeli. Anayeli states she will contact family. Anayeli reports all her family said their goodbyes earlier and no one plans to come back to the hospital this evening. home is [facility]. Notified gas chargerLoyda.
== END 2023-11-05 17:35 ==
LOC: ER 11:11 → MEDS 16:06
PROVIDERS: Student in an Organized Health Care Education/Training Program; ADMIT Family Medicine
DX: A41.9 Sepsis, unspecified organism (principal); N39.0 Urinary tract infection, site not specified; G93.41 Metabolic encephalopathy; B49 Unspecified mycosis; E86.0 Dehydration; J44.9 Chronic obstructive pulmonary disease, unspecified; N18.4 Chronic kidney disease, stage 4 (severe); E43 Unspecified severe protein-calorie malnutrition; Z51.5 Encounter for palliative care; Z66 Do not resuscitate; Z85.43 Personal history of malignant neoplasm of ovary; Z88.1 Allergy status to other antibiotic agents; Z79.899 Other long term (current) drug therapy
CPT/HCPCS: 36415; 70450; 71045; 80053; 81001; 82803; 82947; 83605; 83690; 83735; 84484; 85025; 87040; 87077; 87086; 87103; 87186; 93005; 93010; 94760; 96361; 96365; 96366; 96367; 96368; 96375; 96376; 99285-25; A9270; G0378; J0696; J2248; J2270; J3370; J7030; J7070